=== PATIENT | female | born 1940 | race Caucasian/White ===

== ENCOUNTER 2018-12-21 13:22 | Outpatient (RCR) | payer MEDICARE, OTHER ==
[~2018-12-21 13:22] MED LIST: ACET-2422 PO; ACET-2429 PO; ACET325T38 PO; ACHD5005 PO; AMLO10TA7 PO; AMLO5TAB9 PO; ASPI-983 PO; BETH25TA PO; BYSTOLIC 5MG; CEPH-507 PO; CHOL5000 PO; DICL25CA4 PO; DIPH25CA79 PO; ENAL20TA PO; ENLP10T; FURO-124 PO; HYDR-1231 PO; HYDROCHLOROT 25 MG; LORA1TAB59 PO; NEBI5TAB8 PO; OMEP20CA12 PO; OMEP40CA36 PO; POTA-51 PO; SIMV20TA3 PO; SODIUM BICARB PO; SOLI10TA2 PO; TYLENOL
[2018-12-30] MEDS ORDERED: NITR100C10 PO (12:22)
[2018-12-30] MEDS ORDERED: SIMV20TA3 PO (12:22)
[2018-12-30] MEDS ORDERED: SOLI10TA2 PO (12:22)
[2018-12-30] MEDS ORDERED: SODI650T PO (12:22)
[2018-12-30] MEDS ORDERED: CALC0.253 PO (12:22)
[2018-12-30] MEDS ORDERED: AMLO10TA7 PO (12:22)
[2018-12-30] MEDS ORDERED: NFNEB10T PO (12:22)
[2018-12-30] MEDS ORDERED: OMEP40CA36 PO (12:22)
[2018-12-30] MEDS ORDERED: CEFD300C3 PO (13:32)
[2018-12-30] MEDS ORDERED: NEBI5TAB8 PO (16:58)
[2018-12-30] MEDS ORDERED: CART1TAB4 PO (16:58)
[2018-12-30] MEDS ORDERED: PYRI100T2 PO (16:58)
[2018-12-30] MEDS ORDERED: KRIL1CAP31 PO (16:58)
[2019-01-01] MEDS ORDERED: CEPH-507 PO (07:37)
== END 2019-01-08 | disposition home or self-care (01) ==
LOC: CR3 13:22 → MERGE 13:22
PROVIDERS: ATTEND Family Medicine
DX: Z29.8 Encounter for other specified prophylactic measures (principal)

== ENCOUNTER 2018-12-30 11:18 | Inpatient (IN) | payer MEDICARE, OTHER ==
[~2018-12-30] VITALS: Ht 171.4 cm; Wt 66.7 kg
--- NOTE | 2018-12-30 11:55 | ED General ---
General Chief Complaint: General Problems/Pain Stated Complaint: TREMORS;HX NEW MED Source of Information: Patient Exam Limitations: No Limitations History of Present Illness Date Seen by Provider: Dec 30, 2018 Time Seen by Provider: 11:52 Initial Comments To ER with reports of shaking upon awakening this morning. She was started on nitrofurantoin yesterday for diagnosis of urinary tract infection. She believes nitrofurantoin may be causing her shaking. She did feel cold at the time and has a temperature of 100.7 upon arrival to the emergency room. Timing/Duration: 1-2 Days Severity: Moderate Associated Systoms: Fever/Chills; No Nausea/Vomiting; Weakness Allergies and Home Medications Allergies Coded Allergies: Penicillins (Verified Allergy, Unknown, 12/30/18) Home Medications Cefdinir 300 Mg Capsule, 300 MG PO DAILY Prescribed by: STAN POLLOCK on 12/30/18 0751 Patient Home Medication List Home Medication List Reviewed: Yes Review of Systems Review of Systems Constitutional: see HPI, chills EENTM: see HPI Respiratory: no symptoms reported Cardiovascular: no symptoms reported Genitourinary: no symptoms reported Musculoskeletal: no symptoms reported Skin: no symptoms reported Psychiatric/Neurological: No Symptoms Reported Hematologic/Lymphatic: No Symptoms Reported Physical Exam Vital Signs Vital Signs - First Documented 12/30/18 11:53 Temp 100.7 Pulse 84 Resp 20 B/P (MAP) 152/76 (101) Pulse Ox 98 Capillary Refill : Height, Weight, BMI Height: '" Weight: lbs. oz. kg; BMI Method: General Appearance: No Apparent Distress, WD/WN Eyes: Bilateral Eye Normal Inspection, Bilateral Eye PERRL, Bilateral Eye EOMI Neck: Full Range of Motion, Normal Inspection Respiratory: Normal Breath Sounds, No Accessory Muscle Use, No Respiratory Distress Cardiovascular: Regular Rate, Rhythm, Normal Peripheral Pulses Gastrointestinal: Normal Bowel Sounds, Non Tender, Soft Extremity: Normal Capillary Refill Neurologic/Psychiatric: Alert, Oriented x3, No Motor/Sensory Deficits Skin: Normal Color, Warm/Dry Focused Exam Lactate Level 12/30/18 12:11: Lactic Acid Level 1.80 Lactic Acid Level Laboratory Tests Test 12/30/18 12:11 Lactic Acid Level 1.80 MMOL/L (0.50-2.00) Progress/Results/Core Measures Suspected Sepsis SIRS Temperature: Pulse: Respiratory Rate: Laboratory Tests 12/30/18 12:11: White Blood Count 12.7H Blood Pressure / Mean: 12/30/18 12:11: Lactic Acid Level 1.80 Laboratory Tests 12/30/18 12:11: Creatinine 3.82H, Platelet Count 309, Total Bilirubin 0.4 Results/Orders Lab Results Laboratory Tests Test 12/30/18 12:11 12/30/18 12:39 Range/Units White Blood Count 12.7 H 4.3-11.0 10^3/uL Red Blood Count 3.81 L 4.35-5.85 10^6/uL Hemoglobin 11.5 11.5-16.0 G/DL Hematocrit 35 35-52 % Mean Corpuscular Volume 91 80-99 FL Mean Corpuscular Hemoglobin 30 25-34 PG Mean Corpuscular Hemoglobin Concent 33 32-36 G/DL Red Cell Distribution Width 13.0 10.0-14.5 % Platelet Count 309 130-400 10^3/uL Mean Platelet Volume 10.1 7.4-10.4 FL Neutrophils (%) (Auto) 89 H 42-75 % Lymphocytes (%) (Auto) 5 L 12-44 % Monocytes (%) (Auto) 6 0-12 % Eosinophils (%) (Auto) 1 0-10 % Basophils (%) (Auto) 0 0-10 % Neutrophils # (Auto) 11.3 H 1.8-7.8 X 10^3 Lymphocytes # (Auto) 0.6 L 1.0-4.0 X 10^3 Monocytes # (Auto) 0.7 0.0-1.0 X 10^3 Eosinophils # (Auto) 0.1 0.0-0.3 10^3/uL Basophils # (Auto) 0.0 0.0-0.1 10^3/uL Neutrophils % (Manual) 90 % Lymphocytes % (Manual) 3 % Monocytes % (Manual) 5 % Eosinophils % (Manual) 1 % Basophils % (Manual) 0 % Band Neutrophils 1 % Blood Morphology Comment NORMAL Sodium Level 138 135-145 MMOL/L Potassium Level 5.1 H 3.6-5.0 MMOL/L Chloride Level 106 98-107 MMOL/L Carbon Dioxide Level 18 L 21-32 MMOL/L Anion Gap 14 5-14 MMOL/L Blood Urea Nitrogen 52 H 7-18 MG/DL Creatinine 3.82 H 0.60-1.30 MG/DL Estimat Glomerular Filtration Rate 11 BUN/Creatinine Ratio 14 Glucose Level 128 H 70-105 MG/DL Lactic Acid Level 1.80 0.50-2.00 MMOL/L Calcium Level 9.7 8.5-10.1 MG/DL Corrected Calcium 9.7 8.5-10.1 MG/DL Total Bilirubin 0.4 0.1-1.0 MG/DL Aspartate Amino Transf (AST/SGOT) 20 5-34 U/L Alanine Aminotransferase (ALT/SGPT) 9 0-55 U/L Alkaline Phosphatase 59 40-136 U/L Total Protein 7.5 6.4-8.2 GM/DL Albumin 4.0 3.2-4.5 GM/DL Urine Color YELLOW Urine Clarity CLEAR Urine pH 6.5 5-9 Urine Specific [place] 1.010 L 1.016-1.022 Urine Protein 2+ H NEGATIVE Urine Glucose (UA) NEGATIVE NEGATIVE Urine Ketones NEGATIVE NEGATIVE Urine Nitrite NEGATIVE NEGATIVE Urine Bilirubin NEGATIVE NEGATIVE Urine Urobilinogen NORMAL NORMAL MG/DL Urine Leukocyte Esterase 3+ H NEGATIVE Urine RBC (Auto) 2+ H NEGATIVE Urine RBC 2-5 H /HPF Urine WBC >100 H /HPF Urine Squamous Epithelial Cells 2-5 /HPF Urine Crystals NONE /LPF Urine Bacteria TRACE /HPF Urine Casts NONE /LPF Urine Mucus NEGATIVE /LPF Urine Culture Indicated YES Micro Results Microbiology 12/30/18 Influenza Types A,B Antigen ([facility]KOT[facility]) - Final, Complete My Orders Orders - STAN POLLOCK APRN Cbc With Automated Diff (12/30/18 11:51) Comprehensive Metabolic Panel (12/30/18 11:51) Ua Culture If Indicated (12/30/18 11:51) Iv [place]-Insert (Order) (12/30/18 11:51) Blood Culture (12/30/18 11:51) Lactic Acid Analyzer (12/30/18 11:51) Influenza A And B Antigens (12/30/18 11:56) Manual Differential (12/30/18 12:11) Urine Culture (12/30/18 12:39) Ceftriaxone For Iv Use (Rocephin For I (12/30/18 13:15) Acetaminophen Tablet (Tylenol Tablet) (12/30/18 13:30) Medications Given in ED Current Medications Medications Dose Ordered Sig/Cara Route Start Time Stop Time Status Last Admin Dose Admin Acetaminophen 1,000 mg ONCE ONCE PO 12/30/18 13:30 12/30/18 13:31 DC 12/30/18 13:27 1,000 MG Ceftriaxone Sodium 1000 mg/ Sterile Water 10 ml @ 200 mls/hr ONCE ONCE IV 12/30/18 13:15 12/30/18 13:17 DC 12/30/18 13:27 200 MLS/HR Vital Signs/I&O 12/30/18 11:53 Temp 100.7 Pulse 84 Resp 20 B/P (MAP) 152/76 (101) Pulse Ox 98 Capillary Refill : Departure Communication (Admissions) Time/Spoke to Admitting Phy: 13:[address] Forbes, we'll admit the patient, hydrate and Rocephin antibiotics. Impression Primary Impression: Urinary tract infection Qualified Codes: N30.00 - Acute cystitis without hematuria Additional Impression: CKD (chronic kidney disease) Qualified Codes: N18.9 - Chronic kidney disease, unspecified Disposition: HOME, SELF-CARE Condition: Stable Admissions Decision to Admit Reason: Admit from ER (General) Decision to Admit/Date: Dec 30, 2018 Time/Decision to Admit Time: 13:54 Departure-Patient Inst. Decision time for Depature: 13:29 Patient Instructions: Urinary Tract Infection, Adult (DC) Add. Discharge Instructions: 1. Antibiotics as directed. Stop the nitrofurantoin (antibiotic given yesterday ) and start the new antibiotic prescribed tomorrow. You do not need anymore antibiotics today, start the new antibiotic tomorrow. Return to ER for any concerns. If you develop any worsening symptoms return to ER. All discharge instructions reviewed with patient and/or family. Voiced understanding. Scripts Cefdinir (Cefdinir) 300 Mg Capsule 300 MG PO DAILY, #7 CAP Prov: STAN POLLOCK ANTHROPOLOGY PROFESSOR 12/30/18 STAN POLLOCK ANTHROPOLOGY PROFESSOR Dec 30, 2018 11:55
[2018-12-30] MEDS ORDERED: AMLO10TA7 PO (12:22)
[2018-12-30] MEDS ORDERED: NITR100C10 PO (12:22)
[2018-12-30] MEDS ORDERED: NFNEB10T PO (12:22)
[2018-12-30] MEDS ORDERED: SIMV20TA3 PO (12:22)
[2018-12-30] MEDS ORDERED: CALC0.253 PO (12:22)
[2018-12-30] MEDS ORDERED: SOLI10TA2 PO (12:22)
[2018-12-30] MEDS ORDERED: SODI650T PO (12:22)
[2018-12-30] MEDS ORDERED: OMEP40CA36 PO (12:22)
[2018-12-30 12:24] LABS: BASOPHILS % (AUTO) 0 % (0-10); EOSINOPHILS # (AUTO) 0.1 10^3/uL (0.0-0.3); EOSINOPHILS % (AUTO) 1 % (0-10); HEMATOCRIT 35 % (35-52); HEMOGLOBIN 11.5 G/DL (11.5-16.0); LYMPHOCYTES # (AUTO) 0.6 X 10^3 (1.0-4.0); LYMPHOCYTES % (AUTO) 5 % (12-44); MEAN CORPUSCULAR HEMOGLOBIN 30 PG (25-34); MEAN CORPUSCULAR HGB CONC 33 G/DL (32-36); MEAN CORPUSCULAR VOLUME 91 FL (80-99); MEAN PLATELET VOLUME 10.1 FL (7.4-10.4); MONOCYTES # (AUTO) 0.7 X 10^3 (0.0-1.0); MONOCYTES % (AUTO) 6 % (0-12); NEUTROPHILS # (AUTO) 11.3 X 10^3 (1.8-7.8); NEUTROPHILS % (AUTO) 89 % (42-75); PLATELET COUNT 309 10^3/uL (130-400); WHITE BLOOD COUNT 12.7 10^3/uL (4.3-11.0)
[2018-12-30 12:42] LABS: BILIRUBIN,TOTAL 0.4 MG/DL (0.1-1.0); CALCIUM 9.7 MG/DL (8.5-10.1); CREATININE SERUM 3.82 MG/DL (0.60-1.30); POTASSIUM 5.1 MMOL/L (3.6-5.0); TOTAL PROTEIN 7.5 GM/DL (6.4-8.2)
[2018-12-30 12:43] LABS: BILIRUBIN,URINE NEGATIVE (NEGATIVE); CLARITY,URINE CLEAR; COLOR,URINE YELLOW; GLUCOSE, URINE (UA) NEGATIVE (NEGATIVE); KETONES,URINE NEGATIVE (NEGATIVE); LEUKOCYTE ESTERASE ,URINE 3+ (NEGATIVE); NITRITE,URINE NEGATIVE (NEGATIVE); PH,URINE 6.5 (5-9); PROTEIN,URINE 2+ (NEGATIVE); UROBILINOGEN,URINE NORMAL (NORMAL)
[2018-12-30 12:50] LABS: NEUTROPHILS % (MANUAL) 90 %
[2018-12-30 12:51] LABS: BAND NEUTROPHILS 1 %; BASOPHILS % (MANUAL) 0 %; EOSINOPHILS % (MANUAL) 1 %; LYMPHOCYTES % (MANUAL) 3 %; MONOCYTES % (MANUAL) 5 %; RBC MORPH NORMAL
[2018-12-30 12:53] LABS: BACTERIA,URINE TRACE /HPF; WBC,URINE >100 /HPF
[2018-12-30] MEDS ORDERED: cefTRIAXone FOR IV USE 1,000 MG in WATER (STERILE) FOR INJECTION 10 ML IV ONE (13:15)
[2018-12-30] MEDS ORDERED: ACETAMINOPHEN 500 MG TAB (TYLENOL) PO ONE (13:30)
[2018-12-30] MEDS ORDERED: CEFD300C3 PO (13:32)
--- OUTSIDE RECORDS SUMMARY | 2018-12-30 14:43 | XMS REPORT | Continuity of Care Document ---
Author Author [facility] Organization [facility] Address Unknown Phone Unavailable Care Team Providers Care Belt Builder Name Role Phone NELSON RIZVI MD PCP Insurance Providers Payer Name Policy Number Subscriber Name Relationship [employer] [id number] Adalgisa Mathias 18 Self / Same As Patient Comm Crossover Enter Ins Name [id number] Adalgisa Mathias 18 Self / Same As Patient Advance Directives Directive Response Recorded Date/Time Advance Directives No 10/22/16 11:33am Health Care Power of Web Production Manager No 10/22/16 11:33am Resuscitation Status Full Code 10/22/16 11:33am Problems Active Problems Medical Problem Onset Date Status Contusion Unknown Acute Medications Current Home Medications Medication Dose Units Route Directions Days/Qty Instructions Start Date Simvastatin 20 Mg 20 Mg Oral Daily 11/18/14 Enalapril Maleate 20 Mg 20 Mg Oral Daily 11/18/14 Omeprazole 20 Mg 20 Mg Oral Daily 30 11/18/14 Diclofenac Potassium 25 Mg 25 Mg Oral Twice A Day 10/22/16 Nebivolol Hcl 5 Mg 5 Mg Oral Daily 10/22/16 Acetaminophen 325 Mg 650 Mg Oral Twice A Day 10/22/16 Diphenhydramine Hcl 25 Mg 25 Mg Oral Twice A Day 10/22/16 Past Home Medications Medication Directions Ordered Status Enalapril Maleate 10 Mg Tablet, 06/09/08 Discontinued [Hydrochlorot 25MG] , 06/09/08 Discontinued [Bystolic 5MG] , 06/09/08 Discontinued [Tylenol] , 06/09/08 Discontinued Nebivolol Hcl 5 Mg Tablet, 5 Each Oral Daily 11/18/14 Discontinued Hydrocodone Bit/Acetaminophen 1 Tab Tablet, 1 Tab Oral Every 6 Hours as needed for Pain 11/18/14 Discontinued Social History Social History Problem Response Recorded Date/Time Alcohol Use Denies Use 11/18/2014 1:27pm Recreational Drug Use No 11/18/2014 1:27pm Recent Foreign Travel No 10/22/2016 11:32am Recent Infectious Disease Exposure No 10/22/2016 11:32am Hospitalization with Isolation Denies 10/22/2016 11:35am Sexually Transmitted Disease No 10/22/2016 11:35am HIV/AIDS No 10/22/2016 11:35am Smoking Status Former Smoker 10/22/2016 11:34am Type Used Cigarettes 10/22/2016 11:34am Recent Hopitalizations No 10/22/2016 11:35am Sexually Transmitted Disease No 10/22/2016 11:35am Hospitalization with Isolation Denies 10/22/2016 11:35am Query Response Start Date Stop Date Smoking Status Former Smoker Hospital Discharge Instructions No hospital discharge instructions. Plan of Care Discharge Date 10/22/16 2:02pm Prescriptions See Medication Section Functional Status No functional status results. Allergies, Adverse Reactions, Alerts Allergen Type Severity Reaction Status Last Updated Penicillins ([id number]) Allergy Severe FACE/EYE SWELLING Active 10/22/16 Immunizations No immunization records. Vital Signs Acute Vital Signs Vital Response Date/Time Pulse Rate (adult) 67 bpm (60 - 90) 10/22/2016 11:42am Respiratory Rate 16 bpm (12 - 24) 10/22/2016 11:42am O2 Sat by Pulse Oximetry 98 % (88 - 100) 10/22/2016 11:42am Blood Pressure 173/80 mm Hg 10/22/2016 11:42am Blood Pressure Mean 111 mm Hg 10/22/2016 11:42am Pain Numeric Pain Scale 0-No Pain 10/22/2016 11:42am Height (Feet) 5 feet 10/22/2016 11:29am Height (Inches) 7.00 inches 10/22/2016 11:29am Height (Calculated Centimeters) 170.326618 cm 10/22/2016 11:29am Weight (Pounds) 157 pounds 10/22/2016 11:29am Weight (Ounces) 9.0 oz 10/22/2016 11:29am Weight (Calculated Grams) 57426.15 gm 10/22/2016 11:29am Weight (Calculated Kilograms) 71.516278 kilograms 10/22/2016 11:29am Calculated BMI 24.7 10/22/2016 11:29am Results Laboratory Results Test Name Result Units Flags Reference Collection Date/Time Result Date/ Time Comments White Blood Count 6.4 10^3/uL 4.3-11.0 10/22/2016 11:50am 10/22/2016 12 :17pm Red Blood Count 4.66 10^6/uL 4.35-5.85 10/22/2016 11:50am 10/22/2016 12 :17pm Hemoglobin 14.1 G/DL 11.5-16.0 10/22/2016 11:50am 10/22/2016 12:17pm Hematocrit 43 % 35-52 10/22/2016 11:50am 10/22/2016 12:17pm Mean Corpuscular Volume 92 FL 80-99 10/22/2016 11:50am 10/22/2016 12: 17pm Mean Corpuscular Hemoglobin 30 PG 25-34 10/22/2016 11:50am 10/22/2016 12:17pm Mean Corpuscular Hemoglobin Concent 33 G/DL 32-36 10/22/2016 11:50am 12:17pm Red Cell Distribution Width 13.5 % 10.0-14.5 10/22/2016 11:50am 2015 12:17pm Platelet Count 158 10^3/uL 130-400 10/22/2016 11:50am 10/22/2016 12: 17pm Mean Platelet Volume 9.8 FL 7.4-10.4 10/22/2016 11:50am 10/22/2016 12: 17pm Neutrophils (%) (Auto) 56 % 42-75 10/22/2016 11:50am 10/22/2016 12: 17pm Lymphocytes (%) (Auto) 31 % 12-44 10/22/2016 11:50am 10/22/2016 12: 17pm Monocytes (%) (Auto) 10 % 0-12 10/22/2016 11:50am 10/22/2016 12:17pm Eosinophils (%) (Auto) 3 % 0-10 10/22/2016 11:50am 10/22/2016 12:17pm Basophils (%) (Auto) 0 % 0-10 10/22/2016 11:50am 10/22/2016 12:17pm Neutrophils # (Auto) 3.6 X 10^3 1.8-7.8 10/22/2016 11:50am 10/22/2016 12:17pm Lymphocytes # (Auto) 2.0 X 10^3 1.0-4.0 10/22/2016 11:50am 10/22/2016 12:17pm Monocytes # (Auto) 0.6 X 10^3 0.0-1.0 10/22/2016 11:50am 10/22/2016 12: 17pm Eosinophils # (Auto) 0.2 10^3/uL 0.0-0.3 10/22/2016 11:50am 10/22/2016 12:17pm Basophils # (Auto) 0.0 10^3/uL 0.0-0.1 10/22/2016 11:50am 10/22/2016 12 :17pm Urine Color YELLOW 10/22/2016 12:00pm 10/22/2016 12:26pm Urine Clarity SLIGHTLY CLOUDY 10/22/2016 12:00pm 10/22/2016 12: 26pm Urine pH 6 5-9 10/22/2016 12:00pm 10/22/2016 12:26pm Urine Specific [place] 1.010 * 1.016-1.022 10/22/2016 12:00pm 2015 12:26pm Urine Protein 2+ * NEGATIVE 10/22/2016 12:00pm 10/22/2016 12:26pm Urine Glucose (UA) NEGATIVE NEGATIVE 10/22/2016 12:00pm 10/22/2016 12 :26pm Urine RBC (Auto) 3+ * NEGATIVE 10/22/2016 12:00pm 10/22/2016 12:26pm Urine Ketones NEGATIVE NEGATIVE 10/22/2016 12:00pm 10/22/2016 12: 26pm Urine Nitrite NEGATIVE NEGATIVE 10/22/2016 12:00pm 10/22/2016 12: 26pm Urine Bilirubin NEGATIVE NEGATIVE 10/22/2016 12:00pm 10/22/2016 12: 26pm Urine Urobilinogen NORMAL MG/DL NORMAL 10/22/2016 12:00pm 10/22/2016 12 :26pm Urine Leukocyte Esterase 3+ * NEGATIVE 10/22/2016 12:00pm 10/22/2016 12 :26pm Urine RBC 2-5 /HPF * 10/22/2016 12:00pm 10/22/2016 12:26pm Urine WBC >100 /HPF * 10/22/2016 12:00pm 10/22/2016 12:26pm Urine Bacteria FEW /HPF * 10/22/2016 12:00pm 10/22/2016 12:26pm Urine Squamous Epithelial Cells 5-10 /HPF 10/22/2016 12:00pm 2015 12:26pm Urine Crystals NONE /LPF 10/22/2016 12:00pm 10/22/2016 12:26pm Urine Casts NONE /LPF 10/22/2016 12:00pm 10/22/2016 12:26pm Urine Mucus NEGATIVE /LPF 10/22/2016 12:00pm 10/22/2016 12:26pm Urine Culture Indicated YES 10/22/2016 12:00pm 10/22/2016 12:26pm Sodium Level 140 MMOL/L 135-145 10/22/2016 11:50am 10/22/2016 12:43pm Potassium Level 4.1 MMOL/L 3.6-5.0 10/22/2016 11:50am 10/22/2016 12: 43pm Chloride Level 110 MMOL/L H 98-107 10/22/2016 11:50am 10/22/2016 12:43pm Carbon Dioxide Level 23 MMOL/L 21-32 10/22/2016 11:50am 10/22/2016 12: 43pm Anion Gap 7 MMOL/L 5-14 10/22/2016 11:50am 10/22/2016 12:43pm Blood Urea Nitrogen 24 MG/DL H 7-18 10/22/2016 11:50am 10/22/2016 12: 43pm Creatinine 1.43 MG/DL H 0.60-1.30 10/22/2016 11:50am 10/22/2016 12:43pm BUN/Creatinine Ratio 17 10/22/2016 11:50am 10/22/2016 12:43pm Estimat Glomerular Filtration Rate 36 10/22/2016 11:50am 2015 12:43pm GFR INTERPRETIVE DATA UNITS FOR ESTIMATED GFR (eGFR): mL/min/1.73 M2 REFERENCE RANGE FOR ESTIMATED GFR (eGFR) eGFR NORMAL eGFR >60 MODERATELY DECREASED eGFR 30-59 SEVERLY DECREASED eGFR 15-29 KIDNEY FAILURE <15 (OR DIALYSIS) Glucose Level 89 MG/DL 70-105 10/22/2016 11:50am 10/22/2016 12:43pm Calcium Level 9.0 MG/DL 8.5-10.1 10/22/2016 11:50am 10/22/2016 12:43pm Total Bilirubin 0.4 MG/DL 0.1-1.0 10/22/2016 11:50am 10/22/2016 12: 43pm Alkaline Phosphatase 54 U/L 40-136 10/22/2016 11:50am 10/22/2016 12: 43pm Aspartate Amino Transf (AST/SGOT) 12 U/L 5-34 10/22/2016 11:50am 2015 12:43pm Alanine Aminotransferase (ALT/SGPT) 10 U/L 0-55 10/22/2016 11:50am 04/2016 12:43pm Total Protein 6.7 G/DL 6.4-8.2 10/22/2016 11:50am 10/22/2016 12:43pm Albumin 4.1 G/DL 3.2-4.5 10/22/2016 11:50am 10/22/2016 12:43pm Procedures Procedure Status Date Provider(s) Tracing only of electrocardiogram Active 10/22/16 KORI PRAKASH DO Encounters Encounter Location Arrival/Admit Date Discharge/Depart Date Attending Provider Departed Clinic [facility] 10/22/16 11:19am 10/22/16 2: 02pm KORI PRAKASH DO
--- OUTSIDE RECORDS SUMMARY | 2018-12-30 14:43 | XMS REPORT | Continuity of Care Document ---
Author Author [facility] Organization [facility] Address Unknown Phone Unavailable Care Team Providers Care Singer Back Tender Name Role Phone NELSON RIZVI MD PCP Insurance Providers Payer Name Policy Number Subscriber Name Relationship Wps Medicare [id number] Adalgisa Mathias A 18 Self / Same As Patient Comm Crossover Enter Ins Name [id number] Adalgisa Mathias 18 Self / Same As Patient Advance Directives Directive Response Recorded Date/Time Advance Directives No 11/04/16 1:30pm Health Care Power of Reel System Operator No 11/04/16 1:30pm Organ Donor No 11/04/16 1:30pm Resuscitation Status Full Code 11/04/16 1:30pm Problems Active Problems Medical Problem Onset Date [...] 25 Mg Oral Twice A Day 10/22/16 Hydrocodone/Acetaminophen 1 Each 2 Each Oral Every 6 Hours as needed for Pain 60 10/29/16 Cephalexin 500 Mg 500 Mg Oral Four Times Daily 40 11/04/16 Past Home Medications Medication Directions Ordered Status [...] No 11/18/2014 1:27pm Recent Foreign Travel No 11/04/2016 10:27am Sexually Transmitted Disease No 10/29/2016 7:05am HIV/AIDS No 10/29/2016 7:05am Smoking Status Never a Smoker 11/04/2016 10:33am Type Used Cigarettes 11/05/2016 1:33pm Recent Hopitalizations No 10/29/2016 7:05am Sexually Transmitted Disease No 10/29/2016 7:05am Query Response Start Date Stop Date Smoking Status Never a Smoker Hospital Discharge Instructions Patient Instructions Physician Instructions New, Converted or Re-Newed RX: Other (patient already has her diclofenac and lortab rx at home so no new rx written) Instructions follow up with Juliet in 1 week. Remove ugalde if still in place. Sent with Rx for keflex until her culture returns. Use the estrace and bactroban and mix together and then apply externally bid until gone. Additional Follow Up: Yes (1 week with Juliet to have ugalde removed) Activity: Activity as Tolerated Driving Instructions: No Driving for 1 Week NO SMOKING: NO SMOKING Nothing Inside Vagina: No Douching, No [place], No Tampons Discharge Diet: No Restrictions Symptoms to Report to : Swelling Increased, Bleeding Excessive, Pain Increased, Fever Over 101 Degrees F, Vaginal Bleeding Increase, Vaginal Discharge Foul For Any Problems or Questions: Contact Your Physician Bathing Instructions: Shower Plan of Care Discharge Date 11/05/16 12:40pm Disposition 01 HOME, SELF-CARE Instructions/Education Provided Vaginal Prolapse How to Care for Your Ugalde Catheter, Female Ugalde Catheter, Female Acute Cystitis (DC) Bladder Retraining Forms Provided [facility]/OP Prescriptions See Medication Section Referrals QUICK,JULIET W COMMERCIAL DRONE SOFTWARE DEVELOPER (Unspecified) - Address: [facility] [address] [place] [id number] Reason(s) for Referral: APPOINTMENT SCHEDULED WITH JULIET GERONIMO FOR Friday11-12-2016 AT 4:30 P.M. CALL BEFORE IF HAVING ANY PROBLEMS OR QUESTIONS. Care Plan and Goals See Discharge Instructions Section Functional Status Query Response Date Recorded Patient Orientation Person Place Time Situation Normal For Age November 05, 2016 1:33pm Allergies, Adverse Reactions, Alerts Allergen Type Severity Reaction Status Last Updated Penicillins ([id number]) Allergy Severe FACE/EYE SWELLING Active 10/22/16 Immunizations No immunization records. Vital Signs Acute Vital Signs Vital Response Date/Time Temperature (Fahrenheit) 98.8 degrees F (97.6 - 99.5) 11/05/2016 12:40pm Temperature (Calculated Celsius) 37.45813 degrees C (36.4 - 37.5) 11/05/2016 8:00am Temperature Source Tympanic 11/05/2016 12:40pm Pulse Rate (adult) 69 bpm (60 - 90) 11/05/2016 12:40pm Respiratory Rate 18 bpm (12 - 24) 11/05/2016 12:40pm O2 Sat by Pulse Oximetry 98 % (88 - 100) 11/05/2016 12:40pm Blood Pressure 148/67 mm Hg 11/05/2016 12:40pm Blood Pressure Mean 94 mm Hg 11/05/2016 8:00am Pain Numeric Pain Scale 2 11/05/2016 12:40pm Pain Intensity 0 11/05/2016 5:53am Height (Feet) 5 feet 11/04/2016 10:27am Height (Inches) 7.00 inches 11/04/2016 10:27am Height (Calculated Centimeters) 170.267866 cm 11/04/2016 10:27am Weight (Pounds) 157 pounds 11/04/2016 10:27am Weight (Ounces) 9.0 oz 11/04/2016 10:27am Weight (Calculated Grams) 52730.15 gm 11/04/2016 10:27am Weight (Calculated Kilograms) 71.308437 kilograms 11/04/2016 10:27am Calculated BMI 24.7 11/04/2016 10:27am Results Pending Laboratory Results Test Name Collection Date/Time Pending Microbiology Results Procedure Source Collection Date/Time Procedures Procedure Status Date Provider(s) Repair of cystocele Completed 11/04/16 KORI PRAKASH DO Tracing only of electrocardiogram Completed 10/22/16 KORI PRAKASH DO Encounters Encounter Location Arrival/Admit Date Discharge/Depart Date Attending Provider Discharged Inpatient [facility] 11/04/16 9:58am 12:40pm KORI PRAKASH DO Registered [facility] 10/29/16 6:08am KORI PRAKASH DO Departed Clinic [facility] 10/22/16 11:19am 10/22/16 2: 02pm KORI PRAKASH DO
--- OUTSIDE RECORDS SUMMARY | 2018-12-30 14:44 | XMS REPORT | Continuity of Care Document ---
Author Author [facility] Organization [facility] Address Unknown Phone Unavailable Support Name Relationship Address Phone STAN POLLOCK APRN Caregiver [facility] [address] [place] [address] CALI CALI MD Caregiver [address], [address] [place], [place] [address] NELSON RIZVI MD Caregiver [address], [place] [address] FANI BROWNE Next Of Kin [address] [place] [address] Insurance Providers Payer Name Policy Number Subscriber Name Relationship Wps Medicare [id number] Adalgisa Mathias A 18 Self / Same As Patient Comm Crossover Enter Ins Name [id number] Adalgisa Mathias 18 Self / Same As Patient Advance Directives Directive Response Recorded Date/Time Advance Directives No 11/18/14 1:27pm Resuscitation Status Full Code 11/18/14 1:27pm Problems Medical Problems Problem Onset Date Status Contusion Unknown Active Medications Medication Dose Route Sig Days/Qty Instructions Order Date Discontinued Date Status Enalapril Maleate 06/09/08 11/18/14 Discontinued [hydrochlorot 25mg] 06/09/08 11/18/14 Discontinued [Bystolic 5MG] 06/09/08 11/18/14 Discontinued [Tylenol] 06/09/08 11/18/14 Discontinued Simvastatin 20 Mg PO DAILY 11/18/14 Active Enalapril Maleate 20 Mg PO DAILY 11/18/14 Active Nebivolol Hcl 5 Each PO DAILY 11/18/14 Active Omeprazole 20 Mg PO DAILY 30 Qty 11/18/14 Active Hydrocodone Bit/Acetaminophen 1 Tab PO EVERY 6 HOURS PRN PAIN 20 Qty Active Social History Social History Problem Response Recorded Date/Time Alcohol Use Denies Use 11/18/2014 1:27pm Recreational Drug Use No 11/18/2014 1:27pm Recent Foreign Travel No 11/18/2014 1:23pm Smoking Status Former Smoker 11/18/2014 1:27pm Query Response Start Date Stop Date Smoking Status Former Smoker Hospital Discharge Instructions No hospital discharge instructions. Plan of Care No plan of care. Functional Status No functional status results. Allergies, Adverse Reactions, Alerts Allergen Type Severity Reaction Status Last Updated Penicillins ([id number]) Allergy Unknown Active 06/09/08 Immunizations No immunization records. Vital Signs Acute Vital Signs Vital Response Date/Time Temperature (Fahrenheit) 97.3 degrees F (97.6 - 99.5) Temperature (Calculated Celsius) 36.97219 degrees C (36.4 - 37.5) Temperature Source Temporal Pulse Rate (adult) 78 bpm (60 - 90) Respiratory Rate 16 bpm (12 - 24) O2 Sat by Pulse Oximetry 96 % (88 - 100) Blood Pressure 184/86 mm Hg Pain Pain Intensity 2 Height (Feet) 5 feet Height (Inches) 7 inches Height (Calculated Centimeters) 170.681633 cm Weight (Pounds) 169 pounds Weight (Calculated Kilograms) 76.751947 kilograms Calculated BMI 26.47 Results Laboratory Results Test Name Result Units Flags Reference Collection Date/Time Result Date/ Time Comments White Blood Count 6.9 10^3/uL 4.3-11.0 11/18/2014 1:28pm 11/18/2014 1: 36pm Red Blood Count 4.59 10^6/uL 4.35-5.85 11/18/2014 1:28pm 11/18/2014 1: 36pm Hemoglobin 14.0 G/DL 11.5-16.0 11/18/2014 1:pm 11/18/2014 1:36pm Hematocrit 42 % 35-52 11/18/2014 1:pm 11/18/2014 1:36pm Mean Corpuscular Volume 91 FL 80-99 11/18/2014 1:pm 11/18/2014 1: 36pm Mean Corpuscular Hemoglobin 31 PG 25-34 11/18/2014 1:28pm 11/18/2014 1: 36pm Mean Corpuscular Hemoglobin Concent 34 G/DL 32-36 11/18/2014 1:pm 12/2014 1:36pm Red Cell Distribution Width 13.0 % 10.0-14.5 11/18/2014 1:28pm 2014 1:36pm Platelet Count 148 10^3/uL 130-400 11/18/2014 1:28pm 11/18/2014 1:36pm Mean Platelet Volume 9.4 FL 7.4-10.4 11/18/2014 1:28pm 11/18/2014 1: 36pm Procedures No known history of procedures. Encounters Encounter Location Date/Time Departed Emergency Room [facility] 11/18/14 11:08am Recent Diagnosis
--- OUTSIDE RECORDS SUMMARY | 2018-12-30 14:44 | XMS REPORT | Continuity of Care Document ---
Author Author [facility] Organization [facility] Address Unknown Phone Unavailable Care Team Providers Care Debt And Budget Counselor Name Role Phone NELSON RIZVI MD PCP Insurance Providers Payer Name Policy Number Subscriber Name Relationship [employer] Medicare [id number] Adalgisa Mathias 18 Self / Same As Patient Comm Crossover Enter Ins Name [id number] Adalgisa Mathias 18 Self / Same As Patient Advance Directives Directive Response Recorded Date/Time Advance Directives No 12/16/16 1:22am Health Care Power of Visitor Services Associate No 12/16/16 1:22am Organ Donor No 12/16/16 1:22am Resuscitation Status Full Code 12/16/16 1:22am Chief Complaint and Reason for Visit Chief Complaint SEVERE SEPSIS; UTI; ARF; BLADDER RETENTION Reason for Visit Contusion Severe sepsis Urinary retention Urinary tract infection Problems Active Problems Medical Problem Onset Date Status Acute renal failure Unknown Acute Contusion Unknown Acute Severe sepsis Unknown Acute Urinary retention Unknown Acute Urinary tract infection Unknown Acute Medications Current Home Medications Medication Dose Units Route Directions Days/Qty Instructions Start Date Nebivolol Hcl 5 Mg 5 Mg Oral Daily 10/22/16 Diphenhydramine Hcl 25 Mg 25 Mg Oral Twice A Day 10/22/16 Acetaminophen 650 Mg 1,300 Mg Oral Bedtime TAKES 2 (650MG) TABLETS Omeprazole 40 Mg 40 Mg Oral Daily 12/16/16 Enalapril Maleate 20 Mg 20 Mg Oral Daily 12/16/16 Simvastatin 20 Mg 20 Mg Oral Bedtime 12/16/16 Solifenacin Succinate 10 Mg 10 Mg Oral Daily 12/16/16 Past Home Medications Medication Directions Ordered Status Enalapril Maleate 10 Mg Tablet, 06/09/08 Discontinued [Hydrochlorot 25MG] , 06/09/08 Discontinued [Bystolic 5MG] , 06/09/08 Discontinued [Tylenol] , 06/09/08 Discontinued Simvastatin 20 Mg Tablet, 20 Mg Oral Daily 11/18/14 Discontinued Enalapril Maleate 20 Mg Tablet, 20 Mg Oral Daily 11/18/14 Discontinued Nebivolol Hcl 5 Mg Tablet, 5 Each Oral Daily 11/18/14 Discontinued Omeprazole 20 Mg Capsule.dr, 20 Mg Oral Daily 11/18/14 Discontinued Hydrocodone Bit/Acetaminophen 1 Tab Tablet, 1 Tab Oral Every 6 Hours as needed for Pain 11/18/14 Discontinued Diclofenac Potassium 25 Mg Capsule, 25 Mg Oral Twice A Day 10/22/16 Discontinued Acetaminophen 325 Mg Tablet, 650 Mg Oral Twice A Day 10/22/16 Discontinued Hydrocodone/Acetaminophen 1 Each Tablet, 2 Each Oral Every 6 Hours as needed for Pain 10/29/16 Discontinued Cephalexin 500 Mg Capsule, 500 Mg Oral Four Times Daily 11/04/16 Discontinued Social History Social History Problem Response Recorded Date/Time Alcohol Use Denies Use 11/18/2014 1:27pm Recreational Drug Use No 11/18/2014 1:27pm Recent Foreign Travel No 12/16/2016 1:20am Recent Infectious Disease Exposure No 12/16/2016 1:20am Hospitalization with Isolation Denies 12/19/2016 11:39am Sexually Transmitted Disease No 12/16/2016 1:40am HIV/AIDS No 12/16/2016 1:40am Smoking Status Former Smoker 12/16/2016 1:50am Type Used Cigarettes 12/16/2016 1:50am Recent Hopitalizations No 12/16/2016 1:40am Sexually Transmitted Disease No 12/16/2016 1:40am Hospitalization with Isolation Denies 12/19/2016 11:39am Query Response Start Date Stop Date Smoking Status Former Smoker Hospital Discharge Instructions No hospital discharge instructions. Plan of Care Discharge Date 12/19/16 11:39am Disposition 61 MEDICARE SWING BED Instructions/Education Provided Urinary Tract Infections in Adults Prescriptions See Medication Section Functional Status Query Response Date Recorded Patient Orientation Person Place Situation December 18, 2016 3:40pm Patient Orientation Person Place Time Situation December 19, 2016 11:39am Comprehension Ability Understands Concepts December 18, 2016 8:00pm Allergies, Adverse Reactions, Alerts Allergen Type Severity Reaction Status Last Updated Penicillins ([id number]) Allergy Severe FACE/EYE SWELLING Active 10/22/16 Immunizations No immunization records. Vital Signs Acute Vital Signs Vital Response Date/Time Temperature (Fahrenheit) 100.5 degrees F (97.6 - 99.5) 12/19/2016 8:00am Temperature (Calculated Celsius) 38.17900 degrees C (36.4 - 37.5) 12/19/2016 8:00am Temperature Source Tympanic 12/19/2016 8:00am Pulse Rate (adult) 108 bpm (60 - 90) 12/19/2016 8:00am Respiratory Rate 20 bpm (12 - 24) 12/19/2016 8:00am O2 Sat by Pulse Oximetry 98 % (88 - 100) 12/19/2016 8:00am Blood Pressure 124/69 mm Hg 12/19/2016 8:00am Blood Pressure Mean 87 mm Hg 12/19/2016 8:00am Pain Numeric Pain Scale 0-No Pain 12/19/2016 8:00am Height (Feet) 5 feet 12/16/2016 1:16am Height (Inches) 7.00 inches 12/16/2016 1:16am Height (Calculated Centimeters) 170.337869 cm 12/16/2016 1:16am Weight (Pounds) 158 pounds 12/18/2016 6:00am Weight (Ounces) 6.0 oz 12/18/2016 6:00am Weight (Calculated Grams) 52405.692 gm 12/18/2016 6:00am Weight (Calculated Kilograms) 71.183518 kilograms 12/18/2016 6:00am Calculated BMI 24.7 12/16/2016 1:16am Capillary Refill Capillary Refill Less Than 3 Seconds 12/18/2016 8:00pm Results Pending Laboratory Results Test Name Collection Date/Time Pending Microbiology Results Procedure Source Collection Date/Time Procedures No known history of procedures. Encounters Encounter Location Arrival/Admit Date Discharge/Depart Date Attending Provider Discharged Inpatient [facility] 12/16/16 12:27am 11:39am SCOTT HUBBARD DO Registered Clinic [facility] 12/11/16 10:16am NELSON RIZVI MD Recent Diagnosis Contusion Severe sepsis Urinary retention Urinary tract infection
--- OUTSIDE RECORDS SUMMARY | 2018-12-30 14:44 | XMS REPORT | Continuity of Care Document ---
Author Author [facility] Organization [facility] Address Unknown Phone Unavailable Care Team Providers Care Laborer Heading Name Role Phone NELSON RIZVI MD PCP Insurance Providers Payer Name Policy Number Subscriber Name Relationship Wps Medicare [id number] Adalgisa Mathias A 18 Self / Same As Patient Comm Crossover Enter Ins Name [id number] Adalgisa Mathias 18 Self / Same As Patient Advance Directives Directive Response Recorded Date/Time Advance Directives No 01/15/17 3:37pm Health Care Power of Regional Geodetic Advisor No 01/15/17 3:37pm Organ Donor No 01/15/17 3:37pm Resuscitation Status Full Code 01/15/17 3:37pm Chief Complaint and Reason for Visit Chief Complaint General Problems/Pain Reason for Visit Urinary tract infection [id number] Hyperkalemia Problems Active Problems Medical Problem Onset Date Status Acute on chronic renal failure Unknown Acute Acute renal failure Unknown Acute Contusion Unknown Acute Elevated brain natriuretic peptide (BNP) level Unknown Acute Hyperkalemia Unknown Acute Severe sepsis Unknown Acute Urinary [...] 10 Mg 10 Mg Oral Daily 12/16/16 Bethanechol Chloride 25 Mg 25 Mg Oral Before Meals And At Bedtime 120 12/23/16 Furosemide 40 Mg 40 Mg Oral Daily 30 12/23/16 Potassium Chloride 20 Meq 20 Meq Oral Daily 30 12/23/16 Past Home Medications Medication Directions Ordered Status [...] No 11/18/2014 1:27pm Recent Foreign Travel No 01/15/2017 3:30pm Recent Infectious Disease Exposure No 01/15/2017 3:30pm Hospitalization with Isolation Denies 01/15/2017 3:30pm Sexually Transmitted Disease No 01/15/2017 3:37pm HIV/AIDS No 01/15/2017 3:37pm Smoking Status Former Smoker 01/15/2017 3:37pm Type Used Cigarettes 01/15/2017 3:37pm Recent Hopitalizations No 01/15/2017 3:37pm Sexually Transmitted Disease No 01/15/2017 3:37pm Hospitalization with Isolation Denies 01/15/2017 3:30pm Query Response Start Date Stop Date Smoking Status Former Smoker Hospital Discharge Instructions No hospital discharge instructions. Plan of Care Discharge Date 01/15/17 7:19pm Disposition 02 XFER S[facility]M HOSP Condition at Discharge Improved Prescriptions See Medication Section Referrals NELSON RIZVI MD - Primary Care Physician Functional Status No functional status results. Allergies, Adverse Reactions, Alerts Allergen Type Severity Reaction Status Last Updated Penicillins ([id number]) Allergy Severe FACE/EYE SWELLING Active 10/22/16 Immunizations No immunization records. Vital Signs Acute Vital Signs Vital Response Date/Time Temperature (Fahrenheit) 96.6 degrees F (97.6 - 99.5) 01/15/2017 3:30pm Temperature (Calculated Celsius) 35.23513 degrees C (36.4 - 37.5) 01/15/2017 3:30pm Temperature Source Temporal 01/15/2017 3:30pm Pulse Rate (adult) 92 bpm (60 - 90) 01/15/2017 7:19pm Respiratory Rate 18 bpm (12 - 24) 01/15/2017 7:19pm O2 Sat by Pulse Oximetry 98 % (88 - 100) 01/15/2017 7:19pm Blood Pressure 121/63 mm Hg 01/15/2017 7:19pm Blood Pressure Mean 100 mm Hg 01/15/2017 3:30pm Pain Numeric Pain Scale 0-No Pain 01/15/2017 3:30pm Height (Feet) 5 feet 01/15/2017 3:30pm Height (Inches) 7 inches 01/15/2017 3:30pm Height (Calculated Centimeters) 170.232689 cm 01/15/2017 3:30pm Weight (Pounds) 146 pounds 01/15/2017 3:30pm Weight (Ounces) 6.0 oz 12/18/2016 6:00am Weight (Calculated Grams) 58758.692 gm 12/18/2016 6:00am Weight (Calculated Kilograms) 66.281622 kilograms 01/15/2017 3:30pm Capillary Refill Capillary Refill Less Than 3 Seconds 01/15/2017 3:30pm Height 5 ft 7 in Weight 146 lb Body Mass Index 22.9 kg/m^2 Results Pending Laboratory Results Test Name Collection Date/Time Pending Microbiology Results Procedure Source Collection Date/Time Procedures Procedure Status Date Provider(s) Color Doppler echocardiography Active 12/20/16 SCOTT HUBBARD DO Tracing only of electrocardiogram Completed 12/20/16 WILMER MILNER MD FACP FACC [facility] Tracing only of electrocardiogram Active 01/15/17 MAEVE MITCHELL MD Encounters Encounter Location Arrival/Admit Date Discharge/Depart Date Attending Provider Departed Emergency Room [facility] 01/15/17 3:12pm 01/15 7:19pm MAEVE MITCHELL MD Registered Clinic [facility] 01/06/17 11:27am NELSON RIZVI MD Registered Clinic [facility] 12/31/16 2:57pm WILMER MILNER FACP [facility]S [facility] Discharged Inpatient [facility] 12/19/16 11:49am 12:10pm SCOTT HUBBARD DO Discharged Inpatient [facility] 12/16/16 12:27am 11:39am SCOTT HUBBARD DO Recent Diagnosis
--- NOTE | 2018-12-30 14:59 | History & Physical-Hospitalist ---
History of Present Illness HPI/Chief Complaint Pt is a 78yoCF with a PMH CKD and HTN who presented to the ER due to shakiness. She is a poor historian so history is somewhat limited and required significant prompting. She states she was seen by her PCP yesterday for what she thought was a check up but was treated for a UTI. She doesn't believe that she had any urinary symptoms yesterday though. She was started on Macrobid and took 2 doses but then woke up this morning with a fever of 100.7 and feeling shakey prompting her to seek evaluation in the ER. She was found to have a leukocytosis and remained febrile. She also had an mild elevation in the creatinine and is being admitted for severe sepsis after failing outpatient management. Source: patient Date Seen 12/30/18 Time Seen by a Provider: 14:51 Attending Physician Lelia Forbes MD PCP Lebron Spears MD Referring Physician Date of Admission Dec 30, 2018 at 14:38 Home Medications & Allergies Home Medications Reviewed patient Home Medication Reconciliation performed by pharmacy medication reconciliations land mobile radio technician and/or nursing. Patients Allergies have been reviewed. Allergies Allergies Coded Allergies Penicillins (Verified Allergy, Unknown, 12/30/18) verapamil (Verified Allergy, Unknown, 12/31/18) Past Ptbytkl-[id number]-[id number] Hx Past Med/Social Hx: Reviewed Nursing Past Med/Soc Hx Patient Social History Alcohol Use: Denies Use Recreational Drug Use: No Smoking Status: Former Smoker Former Smoker, Quit: Jan 04, 1998 Type Used: Cigarettes Recent Foreign Travel: No Contact w/other who traveled: No Recent Infectious Disease Expo: No Past Medical History Surgeries: Hysterectomy, Tonsillectomy Cardiac: Hypertension Family History Reviewed Nursing Family Hx No Pertinent Family Hx Review of Systems Constitutional: chills, fever Gastrointestinal: abdominal pain Physical Exam Physical Exam Vital Signs Vital Signs - First Documented 12/30/18 12/30/18 11:53 15:45 Temp 100.7 Pulse 84 Resp 20 B/P (MAP) 152/76 (101) Pulse Ox 98 O2 Delivery Room Air Capillary Refill : Less Than 3 Seconds Height, Weight, BMI Height: 5'1.00" Weight: 146lbs. oz. 66.964572lh; BMI Method:Stated General Appearance: No Apparent Distress, Chronically ill, Other (appears older than stated age) HEENT: PERRL/EOMI, Moist Mucous Membranes; No Scleral Icterus (L), No Scleral Icterus (R); Other (poor dentition) Neck: Normal Inspection Respiratory: Lungs Clear, No Accessory Muscle Use, No Respiratory Distress Cardiovascular: Regular Rate, Rhythm, No JVD, No Murmur Gastrointestinal: Normal Bowel Sounds, Non Tender, Soft Genital/Rectal: Other (suprapubic tenderness) Extremity: No Calf Tenderness, No Pedal Edema Neurologic/Psychiatric: Alert, Normal Mood/Affect, Other (appears oriented when directly asked but slowed mentation) Skin: Warm/Dry; No Mottled; Pallor Results Results/Procedures Labs Laboratory Tests 12/30/18 12:11 12/31/18 03:25 Patient resulted labs reviewed. Assessment/Plan Admission Diagnosis Severe Sepsis Admission Status: Inpatient Order (span 2 midnights) Reason for Inpatient Admission: failed outpatient management, sepsis with LIBRADO Diagnosis/Problems Diagnosis/Problems (1) Severe sepsis Assessment & Plan: Febrile with leukocytosis UTI as source Cultures done in ER lactic acid normal but LIBRADO meets severe criteria Continue on Rocephin No hypotension, no need for 30cc/kg bolus (2) Urinary tract infection Status: Acute Assessment & Plan: Rocephin as above Await cultures Qualifiers: Urinary tract infection type: acute cystitis Hematuria presence: without hematuria Qualified Codes: N30.00 - Acute cystitis without hematuria (3) LIBRADO (acute kidney injury) Assessment & Plan: Acute on CKD Creatinine 3.82 up from baseline ~2 Continue IVF (4) Essential (primary) hypertension Assessment & Plan: Elevated on arrival Trend LELIA FORBES MD Dec 30, 2018 14:59
[2018-12-30 15:45] VITALS: BP 126/63
[2018-12-30 16:00] VITALS: BP 111/60
[2018-12-30] MEDS ORDERED: ONDANSETRON 4 MG/2 ML (SDV) Z0FRAN IV PRN (16:00)
[2018-12-30] MEDS ORDERED: cefTRIAXone 1,000 MG/SWFI 10 ML IV PUSH IV SCH ×2 (16:00)
[2018-12-30] MEDS ORDERED: ACETAMINOPHEN 325 MG TABLET PO PRN (16:00)
[2018-12-30] MEDS ORDERED: CATHETER FLUSH 10 ML SYR IV PRN (16:00)
[2018-12-30] MEDS ORDERED: PYRI100T2 PO (16:58)
[2018-12-30] MEDS ORDERED: CART1TAB4 PO (16:58)
[2018-12-30] MEDS ORDERED: NEBI5TAB8 PO (16:58)
[2018-12-30] MEDS ORDERED: KRIL1CAP31 PO (16:58)
[2018-12-30 17:00] VITALS: BP 133/66
--- NOTE | 2018-12-30 17:00 | NUR ---
SPOKE WITH THE PATIENT ABOUT HER MEDICATIONS. SHE HAD HER BOTTLES WITH HER AND I COMPARED WITH THE EXT MED HX. SHE WAS ABLE TO VERIFY EXACTLY HOW SHE TAKES EACH MEDICATION. IN ADDITION TO WHAT IS SHOWN ON THE EXT MED HX SHE HAS THE FOLLOWING BOTTLES: 12-03-18 SODIUM BICARB 10GR BID #60 10-05-18 OMEPRAZOLE 40MG DAILY #90 SHE ALSO FILLED VESICARE 10MG DAILY #30 12-03-18 - SHE STATES SHE HAS STOPPED THIS FOR NOW DUE TO SHE THINKS IT MAY HAVE BEEN CAUSING HER DRY MOUTH. SHE TAKES THE FOLLOWING OTC: MOVE FREE DAILY REESE RED DAILY B6 100 DAILY
[2018-12-30] MEDS: LACTATED RINGERS 1,000 ML IV SCH (17:02)
[2018-12-30 18:00] VITALS: BP 118/85
[2018-12-30 20:00] VITALS: BP 147/61
[2018-12-30] MEDS ORDERED: IBUPROFEN 600 MG (MOTRIN) TAB PO PRN (21:30)
[2018-12-31] VITALS (7 sets, daily range): BP systolic 111–157; BP diastolic 50–89
[2018-12-31 03:53] LABS: BASOPHILS % (AUTO) 0 % (0-10); EOSINOPHILS % (AUTO) 0 % (0-10); HEMATOCRIT 32 % (35-52); HEMOGLOBIN 10.4 G/DL (11.5-16.0); LYMPHOCYTES # (AUTO) 0.4 X 10^3 (1.0-4.0); LYMPHOCYTES % (AUTO) 4 % (12-44); MEAN CORPUSCULAR HEMOGLOBIN 30 PG (25-34); MEAN CORPUSCULAR HGB CONC 32 G/DL (32-36); MEAN CORPUSCULAR VOLUME 92 FL (80-99); MEAN PLATELET VOLUME 9.8 FL (7.4-10.4); MONOCYTES # (AUTO) 0.8 X 10^3 (0.0-1.0); MONOCYTES % (AUTO) 8 % (0-12); NEUTROPHILS # (AUTO) 9.3 X 10^3 (1.8-7.8); NEUTROPHILS % (AUTO) 88 % (42-75); PLATELET COUNT 208 10^3/uL (130-400); RED CELL DISTRIBUTION WIDTH 12.9 % (10.0-14.5); WHITE BLOOD COUNT 10.6 10^3/uL (4.3-11.0)
[2018-12-31 04:11] LABS: ALBUMIN 3.2 GM/DL (3.2-4.5); BILIRUBIN,TOTAL 0.3 MG/DL (0.1-1.0); CALCIUM 9.2 MG/DL (8.5-10.1); CREATININE SERUM 3.9 MG/DL (0.60-1.30); POTASSIUM 4.2 MMOL/L (3.6-5.0); TOTAL PROTEIN 6.1 GM/DL (6.4-8.2)
[2018-12-31] MEDS: LACTATED RINGERS 1,000 ML IV SCH ×3 (04:15→22:50)
--- NOTE | 2018-12-31 08:14 | Progress Note-Hospitalist ---
Subjective HPI/CC On Admission Date Seen by Provider: Dec 31, 2018 Time Seen by Provider: 08:12 Pt is a 78yoCF with a PMH CKD and HTN who presented to the ER due to shakiness. She is a poor historian so history is somewhat limited and required significant prompting. She states she was seen by her PCP yesterday for what she thought was a check up but was treated for a UTI. She doesn't believe that she had any urinary symptoms yesterday though. She was started on Macrobid and took 2 doses but then woke up this morning with a fever of 100.7 and feeling shakey prompting her to seek evaluation in the ER. She was found to have a leukocytosis and remained febrile. She also had an mild elevation in the creatinine and is being admitted for severe sepsis after failing outpatient management. Subjective/Events-last exam Pt reports feeling well. No complaints. No more shakiness. Focused Exam Lactate Level 12/30/18 12:11: Lactic Acid Level 1.80 Objective Exam Vital Signs Vital Signs Date Time Temp Pulse Resp B/P (MAP) Pulse Ox O2 Delivery O2 Flow Rate FiO2 12/31/18 16:00 80 15 148/71 (96) 95 Nasal Cannula 2.00 12/31/18 07:59 98.8 Capillary Refill : Less Than 3 Seconds General Appearance: No Apparent Distress, Chronically ill Respiratory: Lungs Clear, No Accessory Muscle Use, No Respiratory Distress Cardiovascular: Regular Rate, Rhythm, No JVD, No Murmur Gastrointestinal: Normal Bowel Sounds, Non Tender, Soft Neurologic/Psychiatric: Alert, Normal Mood/Affect Results/Procedures Lab Laboratory Tests 12/31/18 03:25 Patient resulted labs reviewed. Assessment/Plan Assessment and Plan Assess & Plan/Chief Complaint Severe Sepsis Diagnosis/Problems Diagnosis/Problems (1) Severe sepsis Assessment & Plan: Improving UTI as source, await cultures Continue on Rocephin (2) Urinary tract infection Status: Acute Assessment & Plan: Rocephin as above Await cultures Qualifiers: Urinary tract infection type: acute cystitis Hematuria presence: without hematuria Qualified Codes: N30.00 - Acute cystitis without hematuria (3) LIBRADO (acute kidney injury) Assessment & Plan: Acute on CKD Creatinine 3.9 today Continue IVF (4) Essential (primary) hypertension Assessment & Plan: Well controlled, trend Clinical Quality Measures DVT/VTE Risk/Contraindication: Risk Factor Score Per Nursin RFS Level Per Nursing on Admit: 2=Moderate LELIA MARSHALL MD Dec 31, 2018 08:14
[2018-12-31] MEDS ORDERED: cefTRIAXone 1,000 MG/SWFI 10 ML IV PUSH IV SCH ×2 (13:00)
--- NOTE | 2018-12-31 15:40 | NUR ---
CM/SS, initial visit with patient. She resides with her aunt, Loreto Avery, and they have lived together for an extended period. Patient has a FWW at home but she has not needed to use it, available if needed. She drives and is independent for ADL's when well. Patient was watching a fishing show on [employer], we discussed pets. She has history of adopting both cats and dogs, they do not have any pets at this time. Will review intermittently for developing care plan, as of now patient identifies no needs as long as she returns to her baseline prior to illness.
[2018-12-31] MEDS ORDERED: SIMvastatin 20 MG (ZOCOR) TAB PO SCH (21:00)
[2018-12-31] MEDS ORDERED: SODIUM BICARBONATE 650 MG TABLET (NON-FORMULARY) PO SCH (21:00)
[2019-01-01 03:48] LABS: BASOPHILS % (AUTO) 1 % (0-10); EOSINOPHILS # (AUTO) 0.5 10^3/uL (0.0-0.3); EOSINOPHILS % (AUTO) 7 % (0-10); HEMATOCRIT 33 % (35-52); HEMOGLOBIN 10.4 G/DL (11.5-16.0); LYMPHOCYTES % (AUTO) 15 % (12-44); MEAN CORPUSCULAR HEMOGLOBIN 29 PG (25-34); MEAN CORPUSCULAR HGB CONC 32 G/DL (32-36); MEAN CORPUSCULAR VOLUME 91 FL (80-99); MEAN PLATELET VOLUME 9.9 FL (7.4-10.4); MONOCYTES # (AUTO) 0.9 X 10^3 (0.0-1.0); MONOCYTES % (AUTO) 13 % (0-12); NEUTROPHILS # (AUTO) 4.3 X 10^3 (1.8-7.8); NEUTROPHILS % (AUTO) 65 % (42-75); PLATELET COUNT 192 10^3/uL (130-400); WHITE BLOOD COUNT 6.6 10^3/uL (4.3-11.0)
[2019-01-01 04:07] LABS: CALCIUM 9.1 MG/DL (8.5-10.1); CREATININE SERUM 3.6 MG/DL (0.60-1.30); POTASSIUM 3.7 MMOL/L (3.6-5.0)
[2019-01-01] MEDS ORDERED: CALCITRIOL 0.25 MCG (ROCALTROL) CAPSULE PO SCH (07:00)
--- NOTE | 2019-01-01 07:34 | Discharge Inst-Simple/Standard ---
Discharge Inst-Standard Discharge Medications New, Converted or Re-Newed RX: Transmitted to Pharmacy Patient Instructions/Follow Up Plan of Care/Instructions/FU: Please continue to take your medications as written. Please follow up with Dr Spears next week to follow up this hospital stay. Activity as Tolerated: Yes Discharge Diet: No Restrictions Return to The Hospital For: Confusion, fever, pain, if you feel you are getting worse. Planned Outpatient Orders/Ref. Pneu Vac Indicated: Yes LELIA MARSHALL MD Jan 01, 2019 07:34
[2019-01-01] MEDS ORDERED: CEPH-507 PO (07:37)
--- NOTE | 2019-01-01 07:44 | Discharge Summary-Hospitalist ---
Diagnosis/Chief Complaint Date of Admission Dec 30, 2018 at 14:38 Date of Discharge Discharge Date: Jan 01, 2019 Admission Diagnosis Severe Sepsis Discharge Diagnosis (1) Severe sepsis Assessment & Plan: Febrile with leukocytosis UTI as source Cultures done in ER lactic acid normal but LIBRADO meets severe criteria Continue on Rocephin No hypotension, no need for 30cc/kg bolus (2) Urinary tract infection Status: Acute Assessment & Plan: Rocephin as above Await cultures (3) LIBRADO (acute kidney injury) Assessment & Plan: Acute on CKD Creatinine 3.82 up from baseline ~2 Continue IVF (4) Essential (primary) hypertension Assessment & Plan: Elevated on arrival Trend Discharge Summary Discharge Physical Exam Allergies: Coded Allergies: Penicillins (Verified Allergy, Unknown, 12/30/18) verapamil (Verified Allergy, Unknown, 12/31/18) Vitals & I&Os Vital Signs Date Time Temp Pulse Resp B/P (MAP) Pulse Ox O2 Delivery O2 Flow Rate FiO2 01/01/19 09:00 Room Air 01/01/19 08:00 75 11 154/75 (101) 97 01/01/19 04:00 99.3 12/31/18 20:00 2.00 General Appearance: No Apparent Distress, Chronically ill, Other (appears older than stated age) HEENT: No Scleral Icterus (L), No Scleral Icterus (R) Respiratory: Lungs Clear, No Accessory Muscle Use, No Respiratory Distress Cardiovascular: Regular Rate, Rhythm, No JVD, No Murmur Gastrointestinal: Normal Bowel Sounds, Non Tender, Soft Extremity: No Calf Tenderness, No Pedal Edema Skin: Warm/Dry; No Mottled; Pallor Neurologic/Psychiatric: Alert, Normal Mood/Affect, Other (appears oriented when directly asked but slowed mentation) Hospital Course Pt was admitted to the hospital for severe sepsis due to UTI. She was started on treatment for UTI with Macrobid by her PCP as an outpatient but continued to have fevers and began to feel tremulous so presented to the ER where she was found to have an LIBRADO met sepsis criteria from her UTI. She was admitted for failing outpatient treatment. She was started on Rocephin and had an uneventful hospital stay. Her creatinine improved though did not normalize as she has chronic kidney disease. On day of discharge she was requesting discharge home. She was discharged home to complete oral antibiotics and follow up with her PCP next week. Labs (last 24 hrs) Laboratory Tests 01/01/19 03:30: White Blood Count 6.6, Red Blood Count 3.57L, Hemoglobin 10.4L, Hematocrit 33L, Mean Corpuscular Volume 91, Mean Corpuscular Hemoglobin 29, Mean Corpuscular Hemoglobin Concent 32, Red Cell Distribution Width 13.0, Platelet Count 192, Mean Platelet Volume 9.9, Neutrophils (%) (Auto) 65, Lymphocytes (%) (Auto) 15, Monocytes (%) (Auto) 13H, Eosinophils (%) (Auto) 7, Basophils (%) (Auto) 1, Neutrophils # (Auto) 4.3, Lymphocytes # (Auto) 1.0, Monocytes # (Auto) 0.9, Eosinophils # (Auto) 0.5H, Basophils # (Auto) 0.0, Sodium Level 139, Potassium Level 3.7, Chloride Level 108H, Carbon Dioxide Level 20L, Anion Gap 11, Blood Urea Nitrogen 41H, Creatinine 3.60H, Estimat Glomerular Filtration Rate 12, BUN/ Creatinine Ratio 11, Glucose Level 94, Calcium Level 9.1 Microbiology 12/30/18 Blood Culture - Preliminary, Resulted No growth 12/30/18 Influenza Types A,B Antigen (DAKOTAH) - Final, Complete 12/30/18 Urine Culture - Final, Complete NO GROWTH Patient resulted labs reviewed. Pending Labs Discussion & Recommendations Discharge Planning: >30 minutes discharge planning Discharge Home Medications: Active Scripts Active Keflex (Cephalexin) 500 Mg Capsule 500 Mg PO BID Reported Krill Oil 500 mg Softgel (Krill/Om-3/Dha/Epa/Phospho/Ast) 1 Each Capsule 1 Cap PO DAILY Vitamin B-6 (Pyridoxine HCl) 100 Mg Tablet 100 Mg PO DAILY Move Free Ultra Tablet (Cartilage/Collagen/Bor/Hyalur) 1 Each Tablet 1 Tab PO DAILY Bystolic (Nebivolol HCl) 5 Mg Tablet 10 Mg PO DAILY TAKES 2 (5MG) TABLETS Omeprazole 40 Mg Capsule.dr 40 Mg PO DAILY Calcitriol 0.25 Mcg Capsule 0.25 Mg PO MOWEFR Amlodipine Besylate 10 Mg Tablet 10 Mg PO DAILY Sodium Bicarbonate 650 Mg Tablet 2 Tab PO DAILY Simvastatin 20 Mg Tablet 20 Mg PO HS [Sodium Bicarb] 10 Gr PO DAILY TAKE TWO TABLETS DAILY Claritin-D 12 Hour Tablet (Loratadine/Pseudoephedrine) 1 Each Tab.er.12h 1 Each PO BID PRN Aspirin EC (Aspirin) 81 Mg Tablet.dr 81 Mg PO HS Vitamin D3 (Cholecalciferol (Vitamin D3)) 5,000 Unit Capsule 5,000 Units PO DAILY Acetaminophen 8 Hour (Acetaminophen) 650 Mg Tablet.er 1,300 Mg PO Q8H PRN TAKES 2 (650MG) TABLETS Instructions to patient/family Please see electronic discharge instructions given to patient. Clinical Quality Measures DVT/VTE Risk/Contraindication: Risk Factor Score Per Nursin RFS Level Per Nursing on Admit: 2=Moderate Problem Qualifiers (1) Urinary tract infection: Urinary tract infection type: acute cystitis Hematuria presence: without hematuria Qualified Codes: N30.00 - Acute cystitis without hematuria LELIA MARSHALL MD Jan 01, 2019 07:44
[2019-01-01 08:00] VITALS: BP 154/75
[2019-01-01] MEDS ORDERED: NON-FORMULARY MEDICATION 1 EA EA (Amlodipine Besylate 10 MG) PO SCH (09:00)
[2019-01-01] MEDS ORDERED: amLODIPine 10 MG (NORVASC) TAB PO SCH (09:00)
[2019-01-01] MEDS ORDERED: NEBIVOLOL 5 MG TAB (BYSTOLIC) PO SCH (09:00)
== END 2019-01-01 09:12 | disposition home or self-care (01) | DRG 872 ==
LOC: ER 11:22 → ICU 14:38
PROVIDERS: ADMIT Family Medicine; ATTEND Family Medicine
DX: A41.9 Sepsis, unspecified organism (principal); R65.20 Severe sepsis without septic shock; N30.00 Acute cystitis without hematuria; N17.9 Acute kidney failure, unspecified; I12.9 Hypertensive chronic kidney disease with stage 1 through stage 4 chronic kidney disease, or unspecified chronic kidney disease; N18.9 Chronic kidney disease, unspecified; Z88.0 Allergy status to penicillin; Z87.891 Personal history of nicotine dependence
CPT/HCPCS: 36415; 80048; 80053; 81000; 83605; 85007; 85025; 85027; 87040; 87088; 87804

== ENCOUNTER → 2019-02-15 | Outpatient (CLI) | payer MEDICARE, OTHER ==
[~2019-02-15] MED LIST changes: +CALC0.253 PO; +CART1TAB4 PO; +CEFD300C3 PO; +KRIL1CAP31 PO; +NFNEB10T PO; +NITR100C10 PO; +PYRI100T2 PO; +SODI650T PO
[2019-02-15 15:00] LABS: HEMOGLOBIN 11.5 G/DL (11.5-16.0); MEAN PLATELET VOLUME 8.8 FL (7.4-10.4); RED CELL DISTRIBUTION WIDTH 14.8 % (10.0-14.5); WHITE BLOOD COUNT 8.6 10^3/uL (4.3-11.0)
[2019-02-15 15:15] LABS: BILIRUBIN,URINE NEGATIVE (NEGATIVE); CLARITY,URINE CLEAR; COLOR,URINE YELLOW; GLUCOSE, URINE (UA) NEGATIVE (NEGATIVE); KETONES,URINE NEGATIVE (NEGATIVE); LEUKOCYTE ESTERASE ,URINE 3+ (NEGATIVE); NITRITE,URINE NEGATIVE (NEGATIVE); PH,URINE 6.5 (5-9); PROTEIN,URINE 3+ (NEGATIVE); UROBILINOGEN,URINE NORMAL (NORMAL)
[2019-02-15 15:18] LABS: CALCIUM 9.7 MG/DL (8.5-10.1); CREATININE SERUM 2.76 MG/DL (0.60-1.30); PHOSPHORUS 4.1 MG/DL (2.3-4.7); POTASSIUM 4.6 MMOL/L (3.6-5.0)
[2019-02-15 15:23] LABS: BACTERIA,URINE TRACE /HPF; RBC,URINE RARE /HPF; WBC,URINE TNTC /HPF
[2019-02-15 15:24] LABS: SQUAMOUS EPITHELIAL CELL,UR RARE /HPF
== END ==
LOC: LAB 14:33
PROVIDERS: ATTEND Internal Medicine Nephrology
DX: I13.0 Hypertensive heart and chronic kidney disease with heart failure and stage 1 through stage 4 chronic kidney disease, or unspecified chronic kidney disease (principal); I50.9 Heart failure, unspecified; N18.4 Chronic kidney disease, stage 4 (severe); E78.5 Hyperlipidemia, unspecified; N17.9 Acute kidney failure, unspecified; K21.9 Gastro-esophageal reflux disease without esophagitis; N39.0 Urinary tract infection, site not specified; N13.9 Obstructive and reflux uropathy, unspecified; R60.9 Edema, unspecified; E55.9 Vitamin D deficiency, unspecified; R31.9 Hematuria, unspecified; R80.9 Proteinuria, unspecified; E87.2 Acidosis; D64.9 Anemia, unspecified; E79.0 Hyperuricemia without signs of inflammatory arthritis and tophaceous disease; N25.81 Secondary hyperparathyroidism of renal origin; E04.9 Nontoxic goiter, unspecified; R32 Unspecified urinary incontinence
CPT/HCPCS: 36415; 80069; 81000; 82570; 83970; 84156; 84550; 85027; 87077; 87088

== ENCOUNTER 2019-08-03 10:00 | Outpatient (CLI) | payer MEDICARE, OTHER ==
[~2019-08-03] VITALS: Ht 167.7 cm; Wt 60.4 kg
[2019-08-03] MEDS ORDERED: NFNEB10T PO (10:10)
[2019-08-03] MEDS ORDERED: CLOP75TA28 PO (10:10)
[2019-08-04] MEDS ORDERED: METR500T PO (11:23)
[2019-08-04] MEDS ORDERED: CLOT15CR4 TP (11:23)
[2019-08-04] MEDS ORDERED: CIPR-225 PO (11:23)
== END 2019-08-03 11:28 | disposition home or self-care (01) ==
LOC: PREOP 10:00
PROVIDERS: ATTEND Surgery
DX: Z01.818 Encounter for other preprocedural examination (principal)

== ENCOUNTER 2019-08-04 08:38 | Day surgery (SDC) | payer MEDICARE, OTHER ==
[~2019-08-04] VITALS: Ht 167.7 cm; Wt 60.4 kg
[2019-08-04] VITALS (13 sets, daily range): BP systolic 98–159; BP diastolic 51–72
[~2019-08-04 08:38] MED LIST changes: +CLOP75TA28 PO; +NS IV 500 ML 500 ML ONE
[2019-08-04] MEDS ORDERED: NS IV 500 ML 500 ML IV PRN (08:49)
[2019-08-04] MEDS ORDERED: MIDAZOLAM 2 MG/2 ML (VERSED) VIAL IVP ONE (09:00)
[2019-08-04] MEDS ORDERED: fentaNYL INJECTION 100 MCG/2 ML AMP IVP ONE (09:00)
[2019-08-04] MEDS ORDERED: LIDOCAINE JELLY 2% 6 ML SYRINGE MM PRN (09:00)
[2019-08-04] MEDS ORDERED: MIDAZOLAM 2 MG/2 ML (VERSED) VIAL ONE ×3 (10:17→10:43)
[2019-08-04] MEDS ORDERED: fentaNYL INJECTION 100 MCG/2 ML AMP ONE ×2 (10:17)
[2019-08-04] MEDS ORDERED: LIDOCAINE JELLY 2% 6 ML SYRINGE ONE (10:23)
--- NOTE | 2019-08-04 11:18 | Conscious Sedation/ASA ---
Conscious Sedation Pre-Proced Time 09:40 ASA Score 2 For ASA 3 and 4: Consider anesthesia and medical clearance. Also, for patients with a history of failed moderate sedation consider anesthesia. Airway Lungs Heart ASA score ASA 1: a normal healthy patient ASA 2: a patient with a mild systemic disease (mid diabetes, controlled hypertension, obesity ASA 3: a patient with a severe systemic disease that limits activity (angina, COPD, prior Myocardial infarction) ASA 4: a patient with an incapacitating disease that is a constant threat to life (CHF, renal failure) ASA 5: a moribund patient not expected to survive 24 hrs. (ruptured aneurysm) ASA 6: a declared brain- patient whose organs are being harvested. For emergent operations, add the letter E after the classification Mallampati Classification Grade 2 Sedation Plan Analgesia, Amnesia, Plan communicated to team members, Discussed options with patient/fam, Discussed risks with patient/fam The patient is an appropriate candidate to undergo the planned procedure, sedation, and anesthesia. The patient immediately re-assessed prior to indication. MAXIMILIAN TOM MD Aug 04, 2019 11:18
--- NOTE | 2019-08-04 11:19 | Progress Note-Pre Operative ---
Pre-Operative Progress Note H&P Reviewed The H&P was reviewed, patient examined and no changes noted. Date Seen by Provider: Aug 04, 2019 Time Seen by Provider: 09:40 Date H&P Reviewed: Aug 04, 2019 Time H&P Reviewed: 09:40 Pre-Operative Diagnosis: screening MAXIMILIAN Shaikh MD Aug 04, 2019 11:19
--- NOTE | 2019-08-04 11:20 | Progress Note-Post Operative ---
Post-Operative Progess Note Surgeon (s)/Technical Applications Scientist (s) Surgeon MAXIMILIAN TOM MD Technical Applications Scientist: none Pre-Operative Diagnosis screening colo Post-Operative Diagnosis perineal excoriation, moderate proctitis, sigmoid and descending colitis, sigmoid diverticulitis. Procedure & Operative Findings Date of Procedure 08/04/19 Procedure Performed/Findings Colonoscopy with bx. Anesthesia Type cs Estimated Blood Loss Estimated blood loss (mL): minimal Specimens/Packing Specimens Removed rectum, sigmoid MAXIMILIAN TOM MD Aug 04, 2019 11:20
[2019-08-04] MEDS ORDERED: METR500T PO (11:23)
[2019-08-04] MEDS ORDERED: CLOT15CR4 TP (11:23)
[2019-08-04] MEDS ORDERED: CIPR-225 PO (11:23)
--- NOTE | 2019-08-04 11:24 | Discharge Inst-Surgical ---
D/C Lap Instructions-KIDO New, Converted, or Re-Newed RX: RX on Chart Follow Up Appt in 2 weeks Activity as tolerated Avoid Alcohol, Caffeine, Spicy Camilla and Acid foods. Drink 64 fluid oz or more of fluids per day. Symptoms to Report: Fever over 101 degree F, Nausea/Vomiting If any problems/questions: Contact your physician or go to Emergency Room MAXIMILIAN TOM MD Aug 04, 2019 11:24
[2019-08-04] MEDS ORDERED: morphine INJ 10 MG/ML 1ML (SYR OR VIAL) IVP PRN ×2 (11:30)
[2019-08-04] MEDS ORDERED: HYDROcodone/APAP 5 MG/325 MG (LORTAB) TAB PO PRN (11:30)
[2019-08-04] MEDS ORDERED: ACETAMINOPHEN 325 MG TABLET PO PRN (11:30)
[2019-08-04] MEDS ORDERED: ONDANSETRON 4 MG/2 ML (SDV) Z0FRAN IVP PRN (11:30)
--- NOTE | 2019-08-04 19:12 | OPERATIVE REPORT ---
DATE OF SERVICE: 08/04/2019 ATTENDING PRIMARY CARE PHYSICIAN: Dr. Spears. PREOPERATIVE DIAGNOSIS: Screening colonoscopy, rectal bleed. POSTOPERATIVE DIAGNOSES: Perineal excoriation, proctitis, sigmoid colitis and diverticulitis. PROCEDURES: Colonoscopy with biopsy. SURGEON: Maximilian Tom MD ANESTHESIA: Conscious sedation. ESTIMATED BLOOD LOSS: Minimal. FINDINGS: Perineal excoriation, proctitis, sigmoid colitis and diverticulitis. DISPOSITION: The patient tolerated the procedure well. INDICATIONS: The patient is a 78-year-old female, who was referred over to us for screening colonoscopy. She reports her last colonoscopy was approximately 10 years ago where a rectal polyp was identified and found to be hyperplastic benign polyp. She states that she is doing well and does not report any issues with constipation or diarrhea as well as no abdominal pain. Upon examination before the procedure, she did have significant amount of excoriation of the perineum more likely consistent with diarrhea and incontinence as well as yeast infection. DESCRIPTION OF PROCEDURE: The patient was brought to the endoscopy suite, laid in the left lateral decubitus position. After adequate IV pain and sedative medications and conscious sedation anesthesia, a digital rectal examination was performed. As mentioned before, she had significant excoriation of the perineum extending into the gluteal cleft and vagina. A digital rectal examination was performed, which revealed a normal sphincter tone and there were no palpable masses. The endoscope was then intubated into the anus and rectum was gently insufflated. The endoscope was then advanced to the valves of [place] of the rectum with proctitis identified. A biopsy was taken using forceps with visualization of good hemostasis. This inflammation also did extend into the sigmoid colon where diverticulosis were also identified. A biopsy was taken of the sigmoid colon with forceps with visualization of good hemostasis. The endoscope was then advanced through the descending colon and the transverse colon. At the transverse colon, there was no inflammation. The remainder of the transverse, ascending colon to the cecum were normal. The endoscope was then slowly withdrawn while taking a second look and suctioning of residual air with no additional findings. The patient tolerated the procedure well. Due to her history of coronary artery disease and hypertension as well as hypercholesterolemia, it appears that she may have an ischemic colitis and intermittent episodes of diarrhea; however, this may also be related to diverticulitis. It also appears that she does have some level of chronic diarrhea and inflammation of the perineum and we will start her on treatment with ciprofloxacin and Flagyl both b.i.d. for seven days to decrease her diarrhea and Lotrisone cream for the perineum b.i.d. We will have her follow up in approximately two weeks. Job ID: [id number] DocumentID: [id number] Dictated Date: 08/04/2019 11:14:00 Framing Manager Date: 08/04/2019 19:11:16 Dictated By: MAXIMILIAN TOM MD
== END 2019-08-04 12:10 | disposition home or self-care (01) ==
LOC: ENDO 08:38
PROVIDERS: ATTEND Surgery
DX: Z12.11 Encounter for screening for malignant neoplasm of colon (principal); K57.30 Diverticulosis of large intestine without perforation or abscess without bleeding; K63.89 Other specified diseases of intestine; S30.814A Abrasion of vagina and vulva, initial encounter; K21.9 Gastro-esophageal reflux disease without esophagitis; E78.00 Pure hypercholesterolemia, unspecified; I12.9 Hypertensive chronic kidney disease with stage 1 through stage 4 chronic kidney disease, or unspecified chronic kidney disease; N18.3 Chronic kidney disease, stage 3 (moderate); I25.10 Atherosclerotic heart disease of native coronary artery without angina pectoris; Z90.710 Acquired absence of both cervix and uterus; Z88.0 Allergy status to penicillin; Z88.8 Allergy status to other drugs, medicaments and biological substances; Z79.82 Long term (current) use of aspirin; Z79.02 Long term (current) use of antithrombotics/antiplatelets; Z79.899 Other long term (current) drug therapy; Z87.891 Personal history of nicotine dependence; Z83.3 Family history of diabetes mellitus; Z80.41 Family history of malignant neoplasm of ovary; Z82.49 Family history of ischemic heart disease and other diseases of the circulatory system
CPT/HCPCS: 88305

== ENCOUNTER → 2019-08-18 | Outpatient (CLI) | payer MEDICARE, OTHER ==
[~2019-08-18] MED LIST changes: +CIPR-225 PO; +CLOT15CR4 TP; +METR500T PO; -NS IV 500 ML 500 ML ONE
[2019-08-18 10:06] LABS: HEMOGLOBIN 10.2 G/DL (11.5-16.0); MEAN PLATELET VOLUME 9.6 FL (7.4-10.4); RED CELL DISTRIBUTION WIDTH 15.1 % (10.0-14.5); WHITE BLOOD COUNT 5.5 10^3/uL (4.3-11.0)
[2019-08-18 10:36] LABS: ALBUMIN 3.5 GM/DL (3.2-4.5); CALCIUM 9.3 MG/DL (8.5-10.1); CREATININE SERUM 2.95 MG/DL (0.60-1.30); PHOSPHORUS 3.9 MG/DL (2.3-4.7); POTASSIUM 4.6 MMOL/L (3.6-5.0); URIC ACID 6.5 MG/DL (2.6-7.2)
[2019-08-18 10:36] LABS: BILIRUBIN,URINE NEGATIVE (NEGATIVE); CLARITY,URINE VERY CLOUDY; COLOR,URINE OTHER; GLUCOSE, URINE (UA) NEGATIVE (NEGATIVE); KETONES,URINE NEGATIVE (NEGATIVE); LEUKOCYTE ESTERASE ,URINE 3+ (NEGATIVE); NITRITE,URINE NEGATIVE (NEGATIVE); PH,URINE 7 (5-9); PROTEIN,URINE 3+ (NEGATIVE); UROBILINOGEN,URINE NORMAL (NORMAL)
[2019-08-18 10:58] LABS: BACTERIA,URINE FEW /HPF; WBC,URINE TNTC /HPF
[2019-08-18 10:59] LABS: SQUAMOUS EPITHELIAL CELL,UR RARE /HPF
== END ==
LOC: LAB 09:14
PROVIDERS: ATTEND Internal Medicine Nephrology
DX: I13.0 Hypertensive heart and chronic kidney disease with heart failure and stage 1 through stage 4 chronic kidney disease, or unspecified chronic kidney disease (principal); N18.4 Chronic kidney disease, stage 4 (severe); I50.9 Heart failure, unspecified; E78.5 Hyperlipidemia, unspecified; N17.9 Acute kidney failure, unspecified; K21.9 Gastro-esophageal reflux disease without esophagitis; N39.0 Urinary tract infection, site not specified; N13.9 Obstructive and reflux uropathy, unspecified; R60.9 Edema, unspecified; E55.9 Vitamin D deficiency, unspecified; R31.9 Hematuria, unspecified; R80.9 Proteinuria, unspecified; E87.2 Acidosis; D63.1 Anemia in chronic kidney disease; E79.0 Hyperuricemia without signs of inflammatory arthritis and tophaceous disease; N25.81 Secondary hyperparathyroidism of renal origin; E04.9 Nontoxic goiter, unspecified; R32 Unspecified urinary incontinence
CPT/HCPCS: 36415; 80069; 81000; 82306; 82570; 82728; 83540; 83970; 84156; 84550; 85027; 87077; 87088; 87186

== ENCOUNTER → 2019-10-25 | Outpatient (CLI) | payer MEDICARE, OTHER ==
[~2019-10-25] MED LIST changes: -ACET-2429 PO; +ACET650T41 PO; +OMEP40CA27 PO; -OMEP40CA36 PO; -PYRI100T2 PO; +PYRI100T4 PO; +SIMV20TA26 PO
[2019-10-25 14:00] LABS: BILIRUBIN,URINE NEGATIVE (NEGATIVE); CLARITY,URINE CLEAR; COLOR,URINE YELLOW; GLUCOSE, URINE (UA) NEGATIVE (NEGATIVE); KETONES,URINE NEGATIVE (NEGATIVE); LEUKOCYTE ESTERASE ,URINE 3+ (NEGATIVE); NITRITE,URINE NEGATIVE (NEGATIVE); PROTEIN,URINE 1+ (NEGATIVE)
[2019-10-25 14:03] LABS: BASOPHILS # (AUTO) 0.1 10^3/uL (0.0-0.1); BASOPHILS % (AUTO) 1 % (0-10); EOSINOPHILS # (AUTO) 0.5 10^3/uL (0.0-0.3); EOSINOPHILS % (AUTO) 7 % (0-10); HEMATOCRIT 34 % (35-52); HEMOGLOBIN 10.7 G/DL (11.5-16.0); LYMPHOCYTES % (AUTO) 14 % (12-44); MEAN CORPUSCULAR HEMOGLOBIN 29 PG (25-34); MEAN CORPUSCULAR HGB CONC 32 G/DL (32-36); MEAN CORPUSCULAR VOLUME 92 FL (80-99); MONOCYTES # (AUTO) 0.9 X 10^3 (0.0-1.0); MONOCYTES % (AUTO) 12 % (0-12); NEUTROPHILS # (AUTO) 4.8 X 10^3 (1.8-7.8); NEUTROPHILS % (AUTO) 67 % (42-75); PLATELET COUNT 249 10^3/uL (130-400); RED CELL DISTRIBUTION WIDTH 14.3 % (10.0-14.5); WHITE BLOOD COUNT 7.1 10^3/uL (4.3-11.0)
[2019-10-25 14:25] LABS: ALBUMIN 3.8 GM/DL (3.2-4.5); CREATININE SERUM 2.91 MG/DL (0.60-1.30); PHOSPHORUS 4.2 MG/DL (2.3-4.7); POTASSIUM 4.3 MMOL/L (3.6-5.0)
[2019-10-25 14:38] LABS: BACTERIA,URINE FEW /HPF; WBC,URINE TNTC /HPF
== END ==
LOC: LAB 13:23
PROVIDERS: ATTEND Internal Medicine Nephrology
DX: I13.0 Hypertensive heart and chronic kidney disease with heart failure and stage 1 through stage 4 chronic kidney disease, or unspecified chronic kidney disease (principal); I50.9 Heart failure, unspecified; N18.4 Chronic kidney disease, stage 4 (severe); E78.5 Hyperlipidemia, unspecified; N17.9 Acute kidney failure, unspecified; K21.9 Gastro-esophageal reflux disease without esophagitis; N39.0 Urinary tract infection, site not specified; N13.9 Obstructive and reflux uropathy, unspecified; R60.9 Edema, unspecified; E55.9 Vitamin D deficiency, unspecified; R31.9 Hematuria, unspecified; R80.9 Proteinuria, unspecified; E87.2 Acidosis; D64.9 Anemia, unspecified; E79.0 Hyperuricemia without signs of inflammatory arthritis and tophaceous disease; N25.81 Secondary hyperparathyroidism of renal origin; E04.9 Nontoxic goiter, unspecified; R32 Unspecified urinary incontinence
CPT/HCPCS: 36415; 80069; 81000; 82306; 82570; 83970; 84156; 84550; 85025; 87088

== ENCOUNTER 2019-11-12 13:00 | Outpatient (RCR) | payer MEDICARE, OTHER ==
[2019-11-05 12:53] VITALS: BP 131/61
[2019-11-05] MEDS: FERRIC CARBOXYMALTOSE INJ 750 MG in NS (IVPB) 250 ML IV SCH (13:55)
[~2019-11-12 13:00] MED LIST changes: +ACET-2429 PO; -ACET650T41 PO; +ACETAMINOPHEN 500 MG TAB (TYLENOL) PO PRN; -OMEP40CA27 PO; +OMEP40CA36 PO; +PYRI100T2 PO; -PYRI100T4 PO; -SIMV20TA26 PO; +diphenhydrAMINE 50 MG/ML INJ (BENADRYL) IV PRN
[2019-11-12] MEDS: FERRIC CARBOXYMALTOSE INJ 750 MG in NS (IVPB) 250 ML IV SCH (13:25)
[2019-11-12 15:19] VITALS: BP 138/47
== END 2019-11-12 13:55 | disposition home or self-care (01) ==
LOC: SDC 13:00
PROVIDERS: ATTEND Internal Medicine Nephrology
DX: D63.1 Anemia in chronic kidney disease (principal); N18.4 Chronic kidney disease, stage 4 (severe)
CPT/HCPCS: 96365

== ENCOUNTER → 2019-11-19 | Outpatient (CLI) | payer MEDICARE, OTHER ==
[~2019-11-19] MED LIST changes: -ACETAMINOPHEN 500 MG TAB (TYLENOL) PO PRN; -diphenhydrAMINE 50 MG/ML INJ (BENADRYL) IV PRN
[2019-11-19 12:29] LABS: BASOPHILS # (AUTO) 0.1 10^3/uL (0.0-0.1); BASOPHILS % (AUTO) 1 % (0-10); EOSINOPHILS # (AUTO) 0.2 10^3/uL (0.0-0.3); EOSINOPHILS % (AUTO) 3 % (0-10); HEMATOCRIT 36 % (35-52); HEMOGLOBIN 11.3 G/DL (11.5-16.0); LYMPHOCYTES # (AUTO) 1.1 X 10^3 (1.0-4.0); LYMPHOCYTES % (AUTO) 15 % (12-44); MEAN CORPUSCULAR HEMOGLOBIN 30 PG (25-34); MEAN CORPUSCULAR HGB CONC 32 G/DL (32-36); MEAN CORPUSCULAR VOLUME 95 FL (80-99); MEAN PLATELET VOLUME 9.2 FL (7.4-10.4); MONOCYTES # (AUTO) 0.9 X 10^3 (0.0-1.0); MONOCYTES % (AUTO) 13 % (0-12); NEUTROPHILS # (AUTO) 4.7 X 10^3 (1.8-7.8); NEUTROPHILS % (AUTO) 68 % (42-75); PLATELET COUNT 206 10^3/uL (130-400); RED CELL DISTRIBUTION WIDTH 15.4 % (10.0-14.5)
[2019-11-19 12:34] LABS: BILIRUBIN,URINE NEGATIVE (NEGATIVE); CLARITY,URINE SL CLOUDY; COLOR,URINE YELLOW; GLUCOSE, URINE (UA) NEGATIVE (NEGATIVE); KETONES,URINE NEGATIVE (NEGATIVE); LEUKOCYTE ESTERASE ,URINE 3+ (NEGATIVE); NITRITE,URINE NEGATIVE (NEGATIVE); PH,URINE 6.5 (5-9); PROTEIN,URINE 1+ (NEGATIVE)
[2019-11-19 12:43] LABS: BACTERIA,URINE MODERATE /HPF; SQUAMOUS EPITHELIAL CELL,UR 0-2 /HPF; WBC,URINE TNTC /HPF
[2019-11-19 12:51] LABS: ALBUMIN 3.7 GM/DL (3.2-4.5); CREATININE SERUM 2.81 MG/DL (0.60-1.30); POTASSIUM 4.5 MMOL/L (3.6-5.0)
== END ==
LOC: LAB 11:53
PROVIDERS: ATTEND Internal Medicine Nephrology
DX: I13.0 Hypertensive heart and chronic kidney disease with heart failure and stage 1 through stage 4 chronic kidney disease, or unspecified chronic kidney disease (principal); I50.9 Heart failure, unspecified; E78.5 Hyperlipidemia, unspecified; N17.9 Acute kidney failure, unspecified; K21.9 Gastro-esophageal reflux disease without esophagitis; N39.0 Urinary tract infection, site not specified; N13.9 Obstructive and reflux uropathy, unspecified; N18.4 Chronic kidney disease, stage 4 (severe); E55.9 Vitamin D deficiency, unspecified; E87.2 Acidosis; D63.1 Anemia in chronic kidney disease; E79.0 Hyperuricemia without signs of inflammatory arthritis and tophaceous disease; N25.81 Secondary hyperparathyroidism of renal origin; E04.9 Nontoxic goiter, unspecified
CPT/HCPCS: 36415; 80069; 81000; 82306; 82570; 83970; 84156; 85025; 87077; 87088; 87186

== ENCOUNTER → 2020-04-18 | Outpatient (CLI) | payer MEDICARE, OTHER ==
[~2020-04-18] MED LIST changes: -ACET-2429 PO; +ACET650T41 PO; +ATOR40TA PO; +AZIT250T12 PO; +CARV12.53 PO; +CYAN250014 PO; +IPRA3AMP31 INH; +MIRA50TA PO; +NITR0.4T42 SL; +NITR100C PO; +NITR50CA PO; +OMEP40CA27 PO; -OMEP40CA36 PO; +OMG1KC PO; +PYRI100T10 PO; -PYRI100T2 PO; +SIMV20TA26 PO
[2020-04-18 10:24] LABS: BASOPHILS # (AUTO) 0.1 10^3/uL (0.0-0.1); BASOPHILS % (AUTO) 1 % (0-10); EOSINOPHILS # (AUTO) 0.2 10^3/uL (0.0-0.3); EOSINOPHILS % (AUTO) 3 % (0-10); HEMATOCRIT 40 % (35-52); HEMOGLOBIN 12.7 G/DL (11.5-16.0); LYMPHOCYTES # (AUTO) 1.4 X 10^3 (1.0-4.0); LYMPHOCYTES % (AUTO) 16 % (12-44); MEAN CORPUSCULAR HEMOGLOBIN 31 PG (25-34); MEAN CORPUSCULAR HGB CONC 32 G/DL (32-36); MEAN CORPUSCULAR VOLUME 98 FL (80-99); MEAN PLATELET VOLUME 9.7 FL (7.4-10.4); MONOCYTES # (AUTO) 1.1 X 10^3 (0.0-1.0); MONOCYTES % (AUTO) 12 % (0-12); NEUTROPHILS % (AUTO) 69 % (42-75); PLATELET COUNT 214 10^3/uL (130-400); RED CELL DISTRIBUTION WIDTH 14.2 % (10.0-14.5); WHITE BLOOD COUNT 8.8 10^3/uL (4.3-11.0)
[2020-04-18 10:31] LABS: BILIRUBIN,URINE NEGATIVE (NEGATIVE); CLARITY,URINE CLOUDY; COLOR,URINE YELLOW; GLUCOSE, URINE (UA) NEGATIVE (NEGATIVE); KETONES,URINE NEGATIVE (NEGATIVE); LEUKOCYTE ESTERASE ,URINE 3+ (NEGATIVE); NITRITE,URINE NEGATIVE (NEGATIVE); PROTEIN,URINE NEGATIVE (NEGATIVE)
[2020-04-18 10:34] LABS: ALBUMIN 4.1 GM/DL (3.2-4.5); POTASSIUM 4.3 MMOL/L (3.6-5.0)
[2020-04-18 10:40] LABS: CREATININE SERUM 2.48 MG/DL (0.60-1.30); PHOSPHORUS 4.4 MG/DL (2.3-4.7)
[2020-04-18 10:56] LABS: BACTERIA,URINE FEW /HPF; SQUAMOUS EPITHELIAL CELL,UR 0-2 /HPF; WBC,URINE TNTC /HPF
== END ==
LOC: LAB 10:03
PROVIDERS: ATTEND Internal Medicine Nephrology
DX: I13.0 Hypertensive heart and chronic kidney disease with heart failure and stage 1 through stage 4 chronic kidney disease, or unspecified chronic kidney disease (principal); I50.9 Heart failure, unspecified; E78.5 Hyperlipidemia, unspecified; N17.9 Acute kidney failure, unspecified; K21.9 Gastro-esophageal reflux disease without esophagitis; N39.0 Urinary tract infection, site not specified; N13.9 Obstructive and reflux uropathy, unspecified; R60.9 Edema, unspecified; E55.9 Vitamin D deficiency, unspecified; N18.4 Chronic kidney disease, stage 4 (severe); R31.9 Hematuria, unspecified; R80.9 Proteinuria, unspecified; E87.2 Acidosis; D64.9 Anemia, unspecified; E79.0 Hyperuricemia without signs of inflammatory arthritis and tophaceous disease; N25.81 Secondary hyperparathyroidism of renal origin; E04.9 Nontoxic goiter, unspecified; R32 Unspecified urinary incontinence
CPT/HCPCS: 36415; 80069; 81000; 82306; 82570; 83970; 84156; 84550; 85025; 87088

== ENCOUNTER 2020-08-17 06:57 | Day surgery (SDC) | payer MEDICARE, OTHER ==
[~2020-08-17] VITALS: Ht 167 cm; Wt 53.0 kg
[~2020-08-17 06:57] MED LIST changes: +ASPI-1238 PO; -ASPI-983 PO; +ENAL20TA16 PO; +NF-SODBICA PO; -SODI650T PO
[2020-08-17] MEDS ORDERED: NS IV 1000 ML 1,000 ML ONE (06:59)
[2020-08-17] MEDS ORDERED: HEParin (CATH LAB) 1,000 ML IV ONE (06:59)
[2020-08-17] MEDS ORDERED: LIDOCAINE 1% INJ 20 ML 20 ML VIAL ONE (06:59)
[2020-08-17] MEDS ORDERED: NS IV 1000 ML 1,000 ML IV ONE (07:02)
[2020-08-17 07:15] VITALS: BP 134/71
[2020-08-17] MEDS ORDERED: VANCOMYCIN INJECTION 1,000 MG in NS (IVPB) 250 ML IV ONE (07:15)
[2020-08-17] MEDS ORDERED: BACITRACIN INJECTION 50,000 UNIT, SODIUM CHLORIDE 0.9% IRRIGATIO 500 ML IR ONE ×2 (07:15)
[2020-08-17] MEDS ORDERED: SIMV20TA26 PO (07:29)
[2020-08-17] MEDS ORDERED: FURO40TA4 PO (07:29)
[2020-08-17] MEDS ORDERED: NITR100C PO (07:29)
[2020-08-17] MEDS ORDERED: NFNEB10T PO (07:29)
[2020-08-17] MEDS ORDERED: AMLO5TAB9 PO (07:29)
[2020-08-17 07:30] LABS: HEMOGLOBIN 11.3 g/dL (11.5-16.0); MEAN PLATELET VOLUME 9.3 fL (9.0-12.2); WHITE BLOOD COUNT 6.6 10^3/uL (4.3-11.0)
[2020-08-17 07:51] LABS: ALBUMIN 3.9 GM/DL (3.2-4.5); BILIRUBIN,TOTAL 0.3 MG/DL (0.1-1.0); CALCIUM 9.7 MG/DL (8.5-10.1); CREATININE SERUM 2.55 MG/DL (0.60-1.30); POTASSIUM 4.6 MMOL/L (3.6-5.0); TOTAL PROTEIN 7.8 GM/DL (6.4-8.2)
[2020-08-17 07:54] LABS: PROTHROMBIN TIME PATIENT 13.3 SEC (12.2-14.7)
[2020-08-17] MEDS ORDERED: fentaNYL INJECTION 100 MCG/2 ML AMP ONE ×2 (08:48→09:40)
[2020-08-17] MEDS ORDERED: MIDAZOLAM 5 MG/5 ML (VERSED) VIAL ONE ×2 (08:48→09:40)
--- NOTE | 2020-08-17 09:20 | Cardiac Procedure Note-CS/ASA ---
Pre-Procedure Note Pre-Op Procedure Note H&P Reviewed The H&P was reviewed, patient examined and no changes noted. Date H&P Reviewed: Aug 17, 2020 Time H&P Reviewed: 08:45 Conscious Sedation Pre-Proced Time 08:45 ASA Score 3 For ASA 3 and 4: Consider anesthesia and medical clearance. Also, for patients with a history of failed moderate sedation consider anesthesia. Airway Lungs Heart ASA score ASA 1: a normal healthy patient ASA 2: a patient with a mild systemic disease (mid diabetes, controlled hypertension, obesity ASA 3: a patient with a severe systemic disease that limits activity (angina, COPD, prior Myocardial infarction) ASA 4: a patient with an incapacitating disease that is a constant threat to life (CHF, renal failure) ASA 5: a moribund patient not expected to survive 24 hrs. (ruptured aneurysm) ASA 6: a declared brain- patient whose organs are being harvested. For emergent operations, add the letter E after the classification Mallampati Classification Grade 1 Sedation Plan Analgesia, Amnesia, Plan communicated to team members, Discussed options with patient/fam, Discussed risks with patient/fam The patient is an appropriate candidate to undergo the planned procedure, sedation, and anesthesia. The patient immediately re-assessed prior to indication. Ky HERRMANN MD Aug 17, 2020 09:20
[2020-08-17] MEDS ORDERED: diphenhydrAMINE 50 MG/ML INJ (BENADRYL) ONE (09:40)
[2020-08-17] MEDS ORDERED: proPOfol 200 MG/20 ML (DIPRIVAN) VIAL IV ONE (10:42)
[2020-08-17] MEDS ORDERED: NS IV 1000 ML 1,000 ML IV SCH (11:24)
--- NOTE | 2020-08-17 11:24 | BiVentricular ICD Implantation ---
BiVentricular ICD Implant BIVENTRICULAR-ICD DATE OF SERVICE: 08/17/20 CARDIAC MANAGER OF SCHOOL: Kathie Healy MD INDICATION: 1. Severe LV systolic dysfunction with an EF of 30-35 percent on aggressive goal-directed medical therapy for at least 3 months. 2. Left bundle branch block. 3. [place] Heart Association class III heart failure. PREOPERATIVE DIAGNOSES: 1. Severe LV systolic dysfunction with an EF of 30-35 percent on aggressive goal-directed medical therapy for at least 3 months. 2. Left bundle branch block. 3. [place] Heart Association class III heart failure. POSTOPERATIVE DIAGNOSES: 1. Successful biventricular ICD implantation. HISTORY: This is a 79year old female with Severe LV systolic dysfunction with LBBB and NYHA class III, biventricular ICD implantation is recommended. PROCEDURE PERFORMED: 1. Biventricular ICD implantation. 2. DFT. COMPLICATIONS: None. ESTIMATED BLOOD LOSS: 20 mL. SPECIMENS: None. ANESTHESIA: Conscious sedation. ORAL ANTICOAGULATION: None. FLUOROSCOPY TIME: 14.41 minutes. FLUOROSCOPY DOSE: 49 MGY. CONTRAST DOSE: 10 mL PROCEDURE DETAILS: Informed consent was taken before the procedure was started. All the risks and complications were explained in detail which included vascular damage, pneumothorax, cardiac perforation, bleeding and infection. Once the patient accepted all the risks and complications, she was brought to the EP lab. The patient was given 1 gram of Vancomycin before the procedure. She was draped and prepped in the usual sterile fashion. A left-sided incision was performed just below the clavicle and dissection was carried down to the pectoralis fascia. under fluoroscopic guidance, the axillary vein was accessed 3 times and 3 J-tip wires were placed via the axillary vein into the IVC. We then took a 9-[place] Medtronic extended hook guide catheter and advanced it over the long wire. We had already placed a 9-[place] sheath in it. Under fluoroscopic guidance, we were able to cross into the coronary sinus with the wire. We then took a guide cath into the coronary sinus. A small amount of contrast was injected, which showed that we were indeed in the proximal segment of the coronary sinus. The venogram showed that a reasonable vein was a posterior lateral branch. We then took a Medtronic Quad CS lead with the Choice PT wire and placed it into the coronary sinus. We were able to put the coronary wire into the posterior lateral vein distally and then were able to advance the CS lead. The CS lead was checked, which showed excellent sensitivity and threshold and no diaphragmatic stimulation. The wire was therefore taken out, the sheath was slit. The lead was still in its original place. The LV lead was then sutured to the pectoralis fascia with 2.0 nonabsorbable sutures. We put a 9-[place] sheath in one of the J-tip wire in the axillary vein and then took single-coil RV ICD and advanced it and crossed under fluoroscopic guidance, crossed the tricuspid valve and placed it into the RV apex. The lead screw was deployed under fluoroscopic guidance. The lead was tested perioperatively and showed excellent sensitivity and capture threshold. There was no diaphragmatic stimulation. The sheath was therefore taken out and the lead was sutured to the muscle and pectoralis fascia with 2.0 nonabsorbable sutures. We put a 7-[place] sheath in one of the J-tip wire in the axillary vein and then took RA lead and advanced it and crossed under fluoroscopic guidance placed it into the RAA. The lead screw was deployed under fluoroscopic guidance. The lead was tested perioperatively and showed excellent sensitivity and capture threshold. There was no diaphragmatic stimulation. The sheath was therefore taken out and the lead was sutured to the muscle and pectoralis fascia with 2.0 nonabsorbable sutures. The RA, RV and LV leads were attached to a BiV ICD. The pocket was flushed. The device was placed in the pocket. DFT testing was done with anesthesia support. The induction mechanism was a T- shock at 300 ms and 1.2 J. VF was noted. Successful defibrillation with 25 J. The wound was closed in 2 layers. The first layer was 6 interrupted 2-0 absorbable sutures. The next layer with which we closed the skin was a 4-0 silk. The skin was cleaned and Steri-Strips were placed and a bandage was placed on top. The patient was transferred to the intensive care unit unit in stable condition. DEVICE INFORMATION: Medtronic CRTD [id number] AMPLIA MRI QUAD US DF4, model number DTM [id number], serial number [id number] LEADS: 1. The right atrial lead: Medtronic Model number [id number], length 52, serial number [id number]. 2. RV ICD lead, Medtronic model number [id number], length 62, serial number [id number] 3. LV CS lead, Medtronic model number [id number], length 88, serial number [id number] PERIOPERATIVE DEVICE INTERROGATION: 1. Right atrium capture threshold 1.0 V at 0.5 ms, impedance 644 ohms, P-wave 2.1 mV. 2. Right ventricle, capture threshold 1.0 V at 0.5 ms, impedance 745 ohms, R wave 12.5 mV. 3. LV, LV1 to LV2. Capture threshold 1.5 V at 0.5 ms, impedance 649 ohms. IMPRESSION AND CONCLUSION: 1. Successful left-sided biventricular implantable cardioverter-defibrillator placement. 2. The patient will be transferred to the intensive care unit. She will receive vancomycin. 3. Postoperative EKG will be performed. 4. Chest x-ray will be done to rule out pneumothorax. 5. Device interrogation will be performed again in the morning. Kathie Healy MD, [facility] Cardiac Electrophysiology Ky HEALY MD Aug 17, 2020 11:24
[2020-08-17] MEDS ORDERED: PATIENT MAY USE OWN MEDS, ALL PO SCH (11:30)
--- NOTE | 2020-08-17 11:51 | Anesthesia-General Post-Op ---
MAC Patient Condition Mental Status/LOC: Same as Preop Cardiovascular: Satisfactory Nausea/Vomiting: Absent Respiratory: Satisfactory Pain: Controlled Complications: Absent Post Op Complications Complications None Follow Up Care/Instructions Patient Instructions None needed. Anesthesiology Discharge Order Discharge Order Patient is doing well, no complaints, stable vital signs, no apparent adverse anesthesia problems. No complications reported per nursing. KISHORE ALLEN CRNA Aug 17, 2020 11:51
[2020-08-17 12:00] VITALS: BP 126/70
--- NOTE | 2020-08-17 14:47 | Diagnostic Imaging Report ---
INDICATION: AICD placement. TIME OF EXAM: 11:53 AM Correlation is made with prior chest 01/22/2020. Cardiac defibrillator has been placed with lead tips in the region of the right atrium and right ventricle. No pneumothorax is identified. There is a moderate right pleural effusion present. No significant left-sided pleural fluid is identified. There is some atelectasis or infiltrate right base. IMPRESSION: 1. Defibrillator placement. No pneumothorax is detected. 2. Moderate right effusion with right basilar infiltrate or atelectasis. Dictated by: Dictated on workstation # [id number]
[2020-08-17] MEDS ORDERED: HYDROcodone/APAP 5 MG/325 MG (LORTAB) TAB ONE (15:29)
[2020-08-17] MEDS: HYDROcodone/APAP 5 MG/325 MG (LORTAB) TAB PO PRN (15:35)
[2020-08-17 16:00] VITALS: BP 111/61
[2020-08-17 20:00] VITALS: BP 124/68
[2020-08-17 23:01] VITALS: BP 117/72
[2020-08-18] MEDS: HYDROcodone/APAP 5 MG/325 MG (LORTAB) TAB PO PRN ×2 (01:53→09:04)
[2020-08-18 03:01] VITALS: BP 117/57
[2020-08-18 03:34] LABS: HEMOGLOBIN 8.9 g/dL (11.5-16.0); WHITE BLOOD COUNT 5.7 10^3/uL (4.3-11.0)
[2020-08-18 03:57] LABS: ALBUMIN 3.1 GM/DL (3.2-4.5); POTASSIUM 5.1 MMOL/L (3.6-5.0)
[2020-08-18 03:58] LABS: CALCIUM 8.6 MG/DL (8.5-10.1)
[2020-08-18 04:01] LABS: BILIRUBIN,TOTAL 0.3 MG/DL (0.1-1.0)
[2020-08-18 04:03] LABS: CREATININE SERUM 2.11 MG/DL (0.60-1.30)
[2020-08-18 08:00] VITALS: BP 124/73
--- NOTE | 2020-08-18 08:21 | Progress Note - Cardiology ---
Cardiology SOAP Progress Note Subjective: Some tenderness at site of implant. No other cp No palp or syncope No shortness of breath at rest No n/v/d No focal weakness Wishes to go home Objective: I&O/Vital Signs 08/17/20 08/18/20 08/18/20 08/18/20 23:01 01:00 03:01 07:00 Temp 36.9 36.6 Pulse 81 82 75 82 Resp 18 16 B/P (MAP) 117/72 (87) 117/57 (77) Pulse Ox 96 96 O2 Delivery Room Air Room Air 08/18/20 08:00 Temp 36.3 Pulse 80 Resp 19 B/P (MAP) 124/73 (90) Pulse Ox 95 O2 Delivery Room Air 08/18/20 00:00 Intake Total 1150 ml Balance 1150 ml Weight (Pounds): 147 Weight (Ounces): 0.0 Weight (Calculated Kilograms): 66.519074 Device Insertion Site: without hematoma Bruising: mild bruising Constitutional: AAO x 3, other (thin-appearing) Respiratory: No accessory muscle use; other (good bilateral air entry) Cardiovascular: regular rate-rhythm, S1 and S2, systolic murmur (soft JANNA at card base) Gastrointestional: No tender; soft; No guarding, No rebound; audible bowel sounds Extremities: No clubbing, No cyanosis, No significant edema Neurologic/Psychiatric: oriented x 3, other (moves all limbs equally) Skin: No rash on exposed areas, No ulcerations on exposed areas Results/Procedures: Labs Laboratory Tests 08/18/20 02:40: White Blood Count 5.7, Red Blood Count 2.89L, Hemoglobin 8.9#L, Hematocrit 29L, Mean Corpuscular Volume 100H, Mean Corpuscular Hemoglobin 31, Mean Corpuscular Hemoglobin Concent 31L, Red Cell Distribution Width 12.9, Platelet Count 187, Mean Platelet Volume 10.0, Sodium Level 135, Potassium Level 5.1H, Chloride Level 109H, Carbon Dioxide Level 18L, Anion Gap 8, Blood Urea Nitrogen 47H, Creatinine 2.11H, Estimat Glomerular Filtration Rate 23, BUN/Creatinine Ratio 22, Glucose Level 83, Calcium Level 8.6, Corrected Calcium 9.3, Total Bilirubin 0.3, Aspartate Amino Transf (AST/SGOT) 15, Alanine Aminotransferase (ALT/SGPT) 6, Alkaline Phosphatase 39L, Total Protein 6.0L, Albumin 3.1L Laboratory Tests 08/17/20 07:23 08/18/20 02:40 A/P: Assessment: S/p ICE CRUSHER-D on 08/17/[address] Healy Post-op anemia on 08/18/20, probably due to some periprocedural blood loss Chronic systolic CHF - clinically compensated CKD 4 - follows with nephrology services (Dr. 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 Global hypokinesis, more marked at the septum. Grade 1 diastolic dysfunction. Mod MR. Mod to severe AoR. RVSP 23 mmHg. Some pleural effusion seen. Most recent echo of August 02, 2020 showed LVEF 20-25%. Mod MR and AoR. PASP approx 40mmHg. Some pleural effusion present. MPI of April 2017: basal inferior infarction with minimal viji-infarct ischemia. Global hypokinesis of the LV, somewhat more prominent at basal inferior wall. LVEF 38%. MICHAELA of September 15, 2018 - no evidence of endocarditis, LVEF 45%, mild MR and AoR MRSA UTI in Jul 2018 (treated by Dr Rick) HTN HLP Carotid u/s of Sep 27, 2019 and March 2020 showed less than 40% LICA, 60-79% JESSE MARILIN and ARB contraindicated d/t associated acute on chronic renal failure with hyperkalemia in January 2017 S/p bladder sling removal at [facility] in Nov 2017 Plan: * I reviewed and discussed with her her procedure of 08/17/20 * Continue regimen for ischemic cm * To Dr Healy on Friday for wound inspection * Repeat labs as outpt WILMER MILNER MD FACP FAC CCDS Aug 18, 2020 08:21
[2020-08-18] MEDS ORDERED: SULF-11 PO (08:27)
--- NOTE | 2020-08-18 08:28 | Discharge Inst-Post Device ---
Discharge Inst-Post Device Follow up/Plan F/u for wound check at Dr Healy's office on Friday08/21/20 F/u with Dr Anthony in two weeks Heart Healthy Diet Do not lift arm on side of device placement above head for 4 weeks. Do not push and pull heavy objects for 4 weeks. Activity as tolerated. No driving for one week. Leave dressing on until follow up at the office. WILMER ANTHONY MD FACP FAC CCDS Aug 18, 2020 08:28
--- NOTE | 2020-08-18 08:30 | Cardiology Discharge Summary ---
Diagnosis/Chief Complaint Date of Admission 08/17/20 Date of Discharge 08/18/20 Final/Discharge Diagnosis S/p PECAN MALLOW DIPPER-D on 08/17/[address] Healy Post-op anemia on 08/18/20, probably due to some periprocedural blood loss Chronic systolic CHF - clinically compensated CKD 4 - follows with nephrology services (Dr. Rick) Card cath of 01/18/20: PUBLICATION MANAGER of RCA with collateralization from the L coronary system that has diffuse, moderate disease, LVEDP 18 mmHg, LV angio not done (11 ml contrast used) Ischemic CM Echocardiogram of March 29, 2020 showed LVEF 25-30%. Global hypokinesis, more marked at the septum. Grade 1 diastolic dysfunction. Mod MR. Mod to severe AoR. RVSP 23 mmHg. Some pleural effusion seen. Most recent echo of August 02, 2020 showed LVEF 20-25%. Mod MR and AoR. PASP approx 40mmHg. Some pleural effusion present. MPI of April 2017: basal inferior infarction with minimal viji-infarct ischemia. Global hypokinesis of the LV, somewhat more prominent at basal inferior wall. LVEF 38%. MICHAELA of September 15, 2018 - no evidence of endocarditis, LVEF 45%, mild MR and AoR MRSA UTI in Jul 2018 (treated by Dr Rick) HTN HLP Carotid u/s of Sep 27, 2019 and March 2020 showed less than 40% LICA, 60-79% JESSE MARILIN and ARB contraindicated d/t associated acute on chronic renal failure with hyperkalemia in January 2017 S/p bladder sling removal at [facility] in Nov 2017 Chief Complaint/HPI Chief Complaint/HPI Please see progress note of today's date for condition at discharge Discharge Summary Hospital Course Pending Labs Laboratory Tests 08/18/20 02:40: White Blood Count 5.7, Red Blood Count 2.89, Hemoglobin 8.9, Hematocrit 29, Mean Corpuscular Volume 100, Mean Corpuscular Hemoglobin 31, Mean Corpuscular H emoglobin Concent 31, Red Cell Distribution Width 12.9, Platelet Count 187, Mean Platelet Volume 10.0, Sodium Level 135, Potassium Level 5.1, Chloride Level 109, Carbon Dioxide Level 18, Anion Gap 8, Blood Urea Nitrogen 47, Creatinine 2.11, Estimat Glomerular Filtration Rate 23, BUN/Creatinine Ratio 22, Glucose Level 83, Calcium Level 8.6, Corrected Calcium 9.3, Total Bilirubin 0.3, Aspartate Amino Transf (AST/SGOT) 15, Alanine Aminotransferase (ALT/SGPT) 6, Alkaline Phosphatase 39, Total Protein 6.0, Albumin 3.1 Discussion & Recommendations Home Medications Reviewed patient Home Medication Reconciliation performed by pharmacy medication reconciliations injection mold technician and/or nursing. Patients Allergies have been reviewed. Discharge Home Medications: Reviewed and agree with Discharge Medication list on patient's Discharge Instruction sheet Instructions to patient/family F/u for wound check at Dr Healy's office on Friday08/21/20 F/u with Dr Anthony in two weeks WILMER ANTHONY MD FACP FAC CCDS Aug 18, 2020 08:30
[2020-08-18] MEDS ORDERED: VANCOMYCIN INJECTION 1,000 MG in NS (IVPB) 250 ML IV SCH (09:00)
== END 2020-08-18 10:35 | disposition home or self-care (01) ==
LOC: CATH 06:57 → CSD 13:04 → CATH 08-18 10:35
PROVIDERS: ATTEND Internal Medicine Interventional Cardiology
DX: I13.0 Hypertensive heart and chronic kidney disease with heart failure and stage 1 through stage 4 chronic kidney disease, or unspecified chronic kidney disease (principal); I50.22 Chronic systolic (congestive) heart failure; N18.4 Chronic kidney disease, stage 4 (severe); D63.1 Anemia in chronic kidney disease; I25.82 Chronic total occlusion of coronary artery; I08.0 Rheumatic disorders of both mitral and aortic valves; J90 Pleural effusion, not elsewhere classified; E78.5 Hyperlipidemia, unspecified; N17.9 Acute kidney failure, unspecified; K21.9 Gastro-esophageal reflux disease without esophagitis; Z79.899 Other long term (current) drug therapy; Z79.82 Long term (current) use of aspirin; Z88.0 Allergy status to penicillin; Z88.8 Allergy status to other drugs, medicaments and biological substances; Z90.710 Acquired absence of both cervix and uterus; Z87.891 Personal history of nicotine dependence; Z80.41 Family history of malignant neoplasm of ovary
CPT/HCPCS: 33225; 33249; 71045; 80053 ×2; 85027 ×2; 85610; 85730; 87081; 93005; 93641; C1769 ×2; C1777; C1882; C1898; C1900; 36415

== ENCOUNTER 2020-10-02 15:33 | Inpatient (IN) | payer MEDICARE, OTHER ==
[~2020-10-02] VITALS: Ht 170.1 cm; Wt 73.4 kg
[~2020-10-02 15:33] MED LIST changes: +AMLO-250 PO; +AMLO-251 PO; -AMLO10TA7 PO; -AMLO5TAB9 PO; +FURO40TA4 PO; +SULF-11 PO
--- NOTE | 2020-10-02 15:40 | ED Cardiac General ---
History of Present Illness General Stated Complaint: IRREGULAR PULSE Source: patient Exam Limitations: no limitations History of Present Illness Date Seen by Provider: Oct 02, 2020 Time Seen by Provider: 15:40 Initial Comments 79-year-old female sent in due to irregular pulse. Patient from the skilled nursing and states they noticed a couple hours ago. Patient's only complaint is that her heart is beating really fast. She does seem to have some mild shortness of breath with it. She has no known history of atrial fib. She does have a pacemaker. No reports of fevers chills chest pain or other systemic complaints. Allergies and Home Medications Allergies Coded Allergies: Penicillins (Verified Allergy, Unknown, Pt has rec Rocephin & Ancef in the past, 08/18/20) verapamil (Verified Allergy, Unknown, 12/31/18) Home Medications Acetaminophen 650 Mg Tablet.er, 1,300 MG PO Q8H PRN for PAIN-MILD, (Reported) TAKES 2 (650MG) TABLETS Amlodipine Besylate 5 Mg Tablet, 5 MG PO DAILY, (Reported) Calcitriol 0.25 Mcg Capsule, 0.25 MG PO DAILY, (Reported) Furosemide 40 Mg Tablet, 40 MG PO EVERY OTHER DAY, (Reported) Mirabegron 50 Mg Tab.er.24h, 50 MG PO DAILY, (Reported) Nebivolol HCl 10 Mg Tab, 10 MG PO DAILY, (Reported) Nitroglycerin 0.4 Mg Tab.subl, 0 MG SL UD PRN for CHEST PAIN (ANGINA) Prescribed by: MIKAYLA PABLO on 01/24/20 0937 Omeprazole 40 Mg Capsule.dr, 40 MG PO DAILY, (Reported) Simvastatin 20 Mg Tablet, 20 MG PO EVENING, (Reported) Sodium Bicarbonate 650 Mg Tablet, 1,300 MG PO BID, (Reported) Sulfamethoxazole/Trimethoprim 1 Each Tablet, 1 EACH PO BID Prescribed by: WILMER MILNER on 08/18/20 0839 Patient Home Medication List Home Medication List Reviewed: Yes Review of Systems Review of Systems Constitutional: No chills, No fever Respiratory: Denies Cough, Denies Shortness of Air Cardiovascular: See HPI Gastrointestinal: No Symptoms Reported Genitourinary: No Symptoms Reported Musculoskeletal: no symptoms reported Skin: no symptoms reported Psychiatric/Neurological: No Symptoms Reported Past Mzbbowe-Zbbxlt-Jhinvv Hx Past Med/Social Hx: Reviewed Nursing Past Med/Soc Hx Patient Social History Type Used: Cigarettes Former Smoker, Quit: Jan 04, 1998 2nd Hand Smoke Exposure: No Recent Foreign Travel: No Contact w/Someone Who Travel: No Recent Hopitalizations: Yes (PACEMAKER PLACEMENT) Immunizations Up To Date Tetanus Booster (TDap): Unknown Date of Pneumonia Vaccine: Jul 19, 2013 Date of Influenza Vaccine: Sep 08, 2019 Seasonal Allergies Seasonal Allergies: Yes Past Medical History Surgeries: Yes (COLONOSCOPIES/POLYPECTOMY;HYST/[id number];BLADDER SLING 2015/REMOVED 2016;CATH) Bladder Surgery, Cardiac, Eye Surgery, Hysterectomy, Oophorectomy, Tonsillectomy Respiratory: No Currently Using CPAP: No Currently Using BIPAP: No Cardiac: Yes (CHF WITH EF OF 30-35%;MITRAL & AORTIC REGURGITATION;NSTEMI 01/16/20) Coronary Artery Disease, Heart Attack, Hypertension, Valvular Heart Disease Neurological: No Reproductive Disorders: Yes (GENITAL PROLAPSE) 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 ) Colitis, Gastroesophageal Reflux, Polyps Musculoskeletal: Yes Arthritis, Chronic Back Pain Endocrine: No HEENT: No Loss of Vision: Bilateral Hearing Impairment: Denies Cancer: Yes (PRE-CANCEROUS UTERUS) Did You Recieve Any Treatments: Yes What Type of Treatment Did You: Surgical Intervention Psychosocial: No Integumentary: No Blood Disorders: No Adverse Reaction/Blood Tranf: No (N/A) Family Medical History Cardiovascular disease 19 MOTHER 19 MOTHER (heart problems) Cardiovascular disease 19 MOTHER 19 MOTHER (heart problems) Hypertension 19 FATHER 19 MOTHER Neoplasm G8 SISTER (cancer but does not know what kind) Osteoporosis G8 SISTER (polio as child) Heart Disease, Cancer, Hypertension PSH: -TONSILLECTOMY CHILD -HYST/BSO 1997 -BLADDER SLING 2015 WITH REMOVAL 2016 -COLONOSCOPIES AND COLON POLYP REMOVAL--LAST COLONOSCOPY 08/04/19 -CARDIAC CATH -01/18/20--NO INTERVENTION. TOTAL OCCLUSION OF RIGHT CORONARY ARTERY WITH COLLATERAL CIRCULATION, AND MODERATE DISEASE TO ALL OTHER VESSELS. Physical Exam Vital Signs Vital Signs - First Documented 10/02/20 15:38 Temp 36.2 Pulse 151 Resp 18 B/P (MAP) 108/66 (80) Pulse Ox 95 O2 Delivery Room Air Capillary Refill : Height, Weight, BMI Height: 5'7.50" Weight: 147lbs. 0.0oz. 66.128333ls; 18.64 BMI Method:Stated General Appearance: No Apparent Distress, WD/WN Respiratory: Lungs Clear, Decreased Breath Sounds (mild diffuse) Cardiovascular: No Edema, Irregularly Irregular Gastrointestinal: Non Tender, Soft Extremity: Normal Capillary Refill, Normal Range of Motion Neurologic/Psychiatric: Alert, Normal Mood/Affect Skin: Normal Color, Warm/Dry Progress/Results/Core Measures Results/Orders Lab Results Laboratory Tests Test 10/02/20 15:48 10/02/20 16:09 Range/Units White Blood Count 8.8 4.3-11.0 10^3/uL Red Blood Count 3.40 L 3.80-5.11 10^6/uL Hemoglobin 10.7 L 11.5-16.0 g/dL Hematocrit 37 35-52 % Mean Corpuscular Volume 108 H 80-99 fL Mean Corpuscular Hemoglobin 32 25-34 pg Mean Corpuscular Hemoglobin Concent 29 L 32-36 g/dL Red Cell Distribution Width 14.5 10.0-14.5 % Platelet Count 207 130-400 10^3/uL Mean Platelet Volume 10.1 9.0-12.2 fL Immature Granulocyte % (Auto) 1 % Neutrophils (%) (Auto) 74 42-75 % Lymphocytes (%) (Auto) 13 12-44 % Monocytes (%) (Auto) 11 0-12 % Eosinophils (%) (Auto) 1 0-10 % Basophils (%) (Auto) 1 0-10 % Neutrophils # (Auto) 6.6 1.8-7.8 10^3/uL Lymphocytes # (Auto) 1.1 1.0-4.0 10^3/uL Monocytes # (Auto) 1.0 0.0-1.0 10^3/uL Eosinophils # (Auto) 0.1 0.0-0.3 10^3/uL Basophils # (Auto) 0.0 0.0-0.1 10^3/uL Immature Granulocyte # (Auto) 0.0 0.0-0.1 10^3/uL Sodium Level 143 135-145 MMOL/L Potassium Level 4.3 3.6-5.0 MMOL/L Chloride Level 108 H 98-107 MMOL/L Carbon Dioxide Level 21 21-32 MMOL/L Anion Gap 14 5-14 MMOL/L Blood Urea Nitrogen 71 H 7-18 MG/DL Creatinine 2.28 H 0.60-1.30 MG/DL Estimat Glomerular Filtration Rate 21 BUN/Creatinine Ratio 31 Glucose Level 154 H 70-105 MG/DL Calcium Level 9.1 8.5-10.1 MG/DL Corrected Calcium 9.6 8.5-10.1 MG/DL Magnesium Level 2.3 1.6-2.4 MG/DL Total Bilirubin 0.3 0.1-1.0 MG/DL Aspartate Amino Transf (AST/SGOT) 36 H 5-34 U/L Alanine Aminotransferase (ALT/SGPT) 40 0-55 U/L Alkaline Phosphatase 77 40-136 U/L Troponin I 0.050 H <0.028 NG/ML Total Protein 6.5 6.4-8.2 GM/DL Albumin 3.4 3.2-4.5 GM/DL Prothrombin Time 14.0 12.2-14.7 SEC INR Comment 1.0 0.8-1.4 Activated Partial Thromboplast Time 27 24-35 SEC My Orders Orders - QUINONEZ,MARCELLUS L DO Cbc With Automated Diff (10/02/20 15:40) Magnesium (10/02/20 15:40) Chest 1 View, Ap/Pa Only (10/02/20 15:40) Ekg Tracing (10/02/20 15:40) Comprehensive Metabolic Panel (10/02/20 15:40) Protime With Inr (10/02/20 15:40) Partial Thromboplastin Time (10/02/20 15:40) Monitor-Rhythm Ecg Trace Only (10/02/20 15:40) Ed Iv/Invasive Line Start (10/02/20 15:40) Troponin I (10/02/20 15:40) Diltiazem Injection (Cardizem Injection) (10/02/20 15:45) Ekg Tracing (10/02/20 16:01) Diltiazem Drip Pre-Mix (Cardizem Drip Pr (10/02/20 16:45) Enoxaparin Injection (Lovenox Injection) (10/02/20 16:45) Medications Given in ED Current Medications Medications Dose Ordered Sig/Cara Route Start Time Stop Time Status Last Admin Dose Admin Diltiazem HCl 20 mg ONCE ONCE IVP 10/02/20 15:45 10/02/20 15:46 DC 10/02/20 15:53 20 MG Enoxaparin Sodium 70 mg ONCE ONCE SC 10/02/20 16:45 10/02/20 16:46 DC 10/02/20 16:57 70 MG Vital Signs/I&O 10/02/20 15:38 Temp 36.2 Pulse 151 Resp 18 B/P (MAP) 108/66 (80) Pulse Ox 95 O2 Delivery Room Air Progress Progress Note : Time: 17:44 Progress Note Patient with atrial fib RVR with paced complexes within it. Patient responded well initially to a Cardizem bolus. Her rate dropped to 95 was still having some paced complexes. Then started increasing back of another 120s and 130s. Called and discussed with Dr. Pace. We will place patient on Cardizem drip, Lovenox put her on cardiac stepdown and they will further evaluate her on the floor. We did obtain a pacemaker interrogation but did not have the results at this time Initial ECG Impression Date: Oct 02, 2020 Initial ECG Impression Time: 15:39 Initial ECG Rate: 154 Initial ECG Rhythm: A Fib/Flutter Initial ECG Impression: Atrial Fibrillation w/RVR Comment Atrial fib with paced complexes, LVH EKG : EKG Time: 15:57 Rate: 95 Rhythm: paced rhythm Comment Paced rhythm with a heart rate 95 with LVH Diagnostic Imaging Diagonstic Imaging: Xray Plain Films/CT/US/NM/MRI: chest Comments [facility] [place] NAME: HOOD HENDERSON [facility] REC#: [id number] PT STATUS: REG ER : 1940 PHYSICIAN: MARCELLUS QUINONEZ DO ADMIT DATE: 10/02/20/ER Signed Date of Exam:10/02/20 CHEST 1 VIEW, AP/PA ONLY INDICATION: Chest pain EXAM: Portable chest 4:09 PM FINDINGS: There is a dual-chamber pacemaker. There is cardiomegaly with pulmonary vascular congestion. There are bilateral pleural effusions larger on the right than the left. IMPRESSION: Congestive heart failure with bilateral pleural effusions. Dictated by: Dictated on workstation # [id number] Dict: 10/02/20 1630 Trans: 10/02/20 1636 [facility] [id number] Interpreted by: WINTER ARIZA MD Reviewed: Reviewed by Me, Reviewed/Discussed Departure Communication (Admissions) Time/Spoke to Admitting Phy: 16:50 Time/Spoke to Consulting Phy: 16:45 cardizem drip, lovenox 1mg/kg sc q12 Impression Primary Impression: Atrial fibrillation Qualified Codes: I48.91 - Unspecified atrial fibrillation Disposition: ADMITTED INPATIENT Condition: Stable/Unchanged Admissions Decision to Admit Reason: Admit from ER (General) Decision to Admit/Date: Oct 02, 2020 Time/Decision to Admit Time: 16:55 Departure-Patient Inst. Referrals: MIKAYLA PABLO MD (PCP/Family) Primary Care Physician MARCELLUS QUINONEZ DO Oct 02, 2020 15:40
--- NOTE | 2020-10-02 15:57 | NUR ---
HR RATE DOWN TO HR 89 2ND EKG DONE
[2020-10-02 15:58] LABS: BASOPHILS % (AUTO) 1 % (0-10); EOSINOPHILS # (AUTO) 0.1 10^3/uL (0.0-0.3); EOSINOPHILS % (AUTO) 1 % (0-10); HEMATOCRIT 37 % (35-52); HEMOGLOBIN 10.7 g/dL (11.5-16.0); LYMPHOCYTES # (AUTO) 1.1 10^3/uL (1.0-4.0); LYMPHOCYTES % (AUTO) 13 % (12-44); MEAN CORPUSCULAR HEMOGLOBIN 32 pg (25-34); MEAN CORPUSCULAR HGB CONC 29 g/dL (32-36); MEAN CORPUSCULAR VOLUME 108 fL (80-99); MEAN PLATELET VOLUME 10.1 fL (9.0-12.2); MONOCYTES % (AUTO) 11 % (0-12); NEUTROPHILS # (AUTO) 6.6 10^3/uL (1.8-7.8); NEUTROPHILS % (AUTO) 74 % (42-75); PLATELET COUNT 207 10^3/uL (130-400); WHITE BLOOD COUNT 8.8 10^3/uL (4.3-11.0)
--- NOTE | 2020-10-02 16:09 | NUR ---
INTERGATION OF PACEMAKER DONE.
[2020-10-02 16:13] LABS: ALBUMIN 3.4 GM/DL (3.2-4.5); POTASSIUM 4.3 MMOL/L (3.6-5.0)
[2020-10-02 16:14] LABS: CALCIUM 9.1 MG/DL (8.5-10.1)
[2020-10-02 16:16] LABS: TOTAL PROTEIN 6.5 GM/DL (6.4-8.2)
[2020-10-02 16:18] LABS: BILIRUBIN,TOTAL 0.3 MG/DL (0.1-1.0)
[2020-10-02 16:19] LABS: CREATININE SERUM 2.28 MG/DL (0.60-1.30)
[2020-10-02 16:22] LABS: MAGNESIUM 2.3 MG/DL (1.6-2.4)
--- NOTE | 2020-10-02 16:32 | Diagnostic Imaging Report ---
INDICATION: Chest pain EXAM: Portable chest 4:09 PM FINDINGS: There is a dual-chamber pacemaker. There is cardiomegaly with pulmonary vascular congestion. There are bilateral pleural effusions larger on the right than the left. IMPRESSION: Congestive heart failure with bilateral pleural effusions. Dictated by: Dictated on workstation # [id number]
[2020-10-02] MEDS ORDERED: ENOXAPARIN 80 MG/0.8 ML (LOVENOX) SYR SC ONE (16:45)
[2020-10-02] MEDS ORDERED: dilTIAZem DRIP PRE-MIX 125 ML IV SCH (16:45)
--- NOTE | 2020-10-02 17:05 | NUR ---
CALLED AND UDATE TO [facility].
--- NOTE | 2020-10-02 17:28 | NUR ---
CALLEAD TO GIVE REPORT NURSE KIA WILL CALL [facility].
--- NOTE | 2020-10-02 18:05 | NUR ---
KEMI FREIRE CALLED AND STATED INTERGATION OF PACEMAKER WAS A FIB NO SHOCKS.
--- NOTE | 2020-10-02 18:12 | NUR ---
KEMI FREIRE REPORT SENT WITH PATIENT.
--- NOTE | 2020-10-02 18:29 | NUR ---
HOOD HENDERSON Olu admitted to room CU8-1, with an admitting diagnosis of AFIB WITH RVR, on 10/02/20 from [place] via [facility], accompanied by STAFF.HOOD HENDERSON introduced to surroundings, call light, bed controls, phone, TV, temperature control, lights, meal times, smoking policy, visitor policy, side rail policy, bathrooms and showers. Patient Rights given to patient in the handbook. HOOD HENDERSON verbalizes understanding that [facility] is not responsible for the loss or damage to any personal effects or valuables that are kept in the patients posession during their hospitalization. The following Patient Care Plans were discussed with the PT: Discharge Planning. HOOD HENDERSON verbalizes understanding of Interdisciplinary Patient Education. Patient and/or family were informed about the Rapid Response Team and its purpose.
[2020-10-02] MEDS ORDERED: dilTIAZem DRIP 125 MG/125 ML DRIP IV SCH (18:45)
[2020-10-02] MEDS ORDERED: CATHETER FLUSH 10 ML SYR IV PRN (18:45)
[2020-10-02] MEDS ORDERED: LORA10TA76 PO (18:49)
[2020-10-02] MEDS ORDERED: OMG1KC PO (18:49)
[2020-10-02] MEDS ORDERED: MELA1TAB20 PO (18:49)
[2020-10-02] MEDS: CATHETER FLUSH 10 ML SYR IV SCH (20:02)
[2020-10-02] MEDS: inSUlin ASPART (NovoLOG) 1 UNIT/0.01 ML (CHARGE PER UNIT) SC SCH (20:02)
[2020-10-03 03:38] LABS: BASOPHILS % (AUTO) 0 % (0-10); EOSINOPHILS % (AUTO) 0 % (0-10); HEMATOCRIT 34 % (35-52); LYMPHOCYTES # (AUTO) 0.9 10^3/uL (1.0-4.0); LYMPHOCYTES % (AUTO) 14 % (12-44); MEAN CORPUSCULAR HEMOGLOBIN 31 pg (25-34); MEAN CORPUSCULAR HGB CONC 29 g/dL (32-36); MEAN CORPUSCULAR VOLUME 105 fL (80-99); MEAN PLATELET VOLUME 9.9 fL (9.0-12.2); MONOCYTES # (AUTO) 0.7 10^3/uL (0.0-1.0); MONOCYTES % (AUTO) 11 % (0-12); NEUTROPHILS # (AUTO) 4.8 10^3/uL (1.8-7.8); NEUTROPHILS % (AUTO) 74 % (42-75); PLATELET COUNT 173 10^3/uL (130-400); WHITE BLOOD COUNT 6.5 10^3/uL (4.3-11.0)
[2020-10-03 03:45] LABS: ALBUMIN 3.2 GM/DL (3.2-4.5)
[2020-10-03 03:46] LABS: POTASSIUM 4.4 MMOL/L (3.6-5.0)
[2020-10-03 03:48] LABS: TOTAL PROTEIN 5.9 GM/DL (6.4-8.2)
[2020-10-03 03:50] LABS: BILIRUBIN,TOTAL 0.3 MG/DL (0.1-1.0)
[2020-10-03 03:52] LABS: CREATININE SERUM 2.27 MG/DL (0.60-1.30)
[2020-10-03 03:55] LABS: MAGNESIUM 2.3 MG/DL (1.6-2.4)
[2020-10-03] MEDS: inSUlin ASPART (NovoLOG) 1 UNIT/0.01 ML (CHARGE PER UNIT) SC SCH (05:27)
[2020-10-03] MEDS: CATHETER FLUSH 10 ML SYR IV SCH ×3 (05:27→21:40)
[2020-10-03] MEDS ORDERED: POTASSIUM CL 10MEQ/50ML IVPB 50 ML IV SCH (06:00)
[2020-10-03] MEDS ORDERED: MAGNESIUM 1 GM/100 ML IVPB 100 ML IV SCH (06:00)
[2020-10-03] MEDS ORDERED: KCL 20 MEQ TAB (K-DUR) PO SCH (06:00)
[2020-10-03] MEDS ORDERED: OMEG-91 PO (08:32)
[2020-10-03] MEDS ORDERED: PYRI100T10 PO (08:32)
[2020-10-03] MEDS ORDERED: NITR0.4T39 SL (08:32)
[2020-10-03] MEDS ORDERED: MELA10TA2 PO (08:32)
[2020-10-03] MEDS ORDERED: CYAN-41 PO (08:32)
--- NOTE | 2020-10-03 08:34 | NUR ---
MED REC WAS ENTERED USING THE PHYSICIAN ORDER FROM [facility]
--- NOTE | 2020-10-03 08:51 | History & Physical ---
History of Present Illness History of Present Illness Reason for visit/HPI PT IS A 79 Y/O FEMALE WHO IS KNOWN TO ME FROM CLINIC AND PREVIOUS HOSPITALIZATION. SHE PRESENTED TO THE HOSPITAL FOR RAPID HEART RATE, FOUND TO BE IN AFIB IN THE EMERGENCY DEPARTMENT. SHE WAS TRANSFERRED UP TO THE ICU WHERE SHE CONVERTED ON HER OWN. Date of Admission Oct 02, 2020 at 17:00 Date Seen by a Provider: Oct 03, 2020 Time Seen by a Provider: 08:45 I consulted on this patient on 10/03/20 08:51 Attending Physician Emily Tay MD Admitting Physician Emily Tay MD Consult Allergies and Home Medications Allergies Coded Allergies: Penicillins (Verified Allergy, Unknown, Pt has rec Rocephin & Ancef in the past, 08/18/20) verapamil (Verified Allergy, Unknown, 12/31/18) Home Medications Acetaminophen 650 Mg Tablet.er, 1,300 MG PO Q8H PRN for PAIN-MILD, (Reported) TAKES 2 (650MG) TABLETS Amlodipine Besylate 5 Mg Tablet, 5 MG PO DAILY, (Reported) HOLD FOR SBP LESS THAN 120 Calcitriol 0.25 Mcg Capsule, 0.25 MG PO DAILY, (Reported) Cyanocobalamin (Vitamin B-12) 1,000 Mcg Tablet, 1,000 MCG PO DAILY, (Reported) Furosemide 40 Mg Tablet, 40 MG PO Q48H, (Reported) Loratadine 10 Mg Tablet, 10 MG PO DAILY, (Reported) Melatonin 10 Mg Tablet, 10 MG PO HS, (Reported) Mirabegron 50 Mg Tab.er.24h, 50 MG PO DAILY, (Reported) Nebivolol HCl 10 Mg Tab, 10 MG PO DAILY, (Reported) Nitroglycerin 0.4 Mg Tab.subl, 0.4 MG SL UD PRN for CHEST PAIN, (Reported) [place]-3/Dha/Epa/Dpa/Fish Oil 1 Each Capsule, 1 EACH PO DAILY, (Reported) Omeprazole 40 Mg Capsule.dr, 40 MG PO DAILY, (Reported) Pyridoxine HCl 100 Mg Tablet, 100 MG PO DAILY, (Reported) Simvastatin 20 Mg Tablet, 20 MG PO EVENING, (Reported) Sodium Bicarbonate 650 Mg Tablet, 1,300 MG PO BID, (Reported) TAKES 2 (650MG) TABS Patient Home Medication List Home Medication List Reviewed: Yes Past Pgzrdxp-Qmhtvs-Gjikry Hx Past Med/Social Hx: Reviewed Nursing Past Med/Soc Hx Patient Social History Marrital Status: Living Status: L[facility]ING AT [facility] Employed/Student: retired Alcohol Use: Denies Use Recreational Drug Use: No Former Smoker, Quit: Jan 04, 1998 Type Used: Cigarettes 2nd Hand Smoke Exposure: No Physical Abuse Screen: No Sexual Abuse: No Recent Foreign Travel: No Contact w/other who traveled: No Recent Hopitalizations: Yes (PACEMAKER PLACEMENT) Recent Infectious Disease Expo: No Immunizations Up To Date Tetanus Booster (TDap): Unknown Date of Pneumonia Vaccine: Jul 19, 2013 Date of Influenza Vaccine: Sep 08, 2020 Seasonal Allergies Seasonal Allergies: Yes Past Medical History Surgeries: Bladder Surgery, Cardiac, Eye Surgery, Hysterectomy, Oophorectomy, Tonsillectomy Currently Using CPAP: No Currently Using BIPAP: No Cardiac: Coronary Artery Disease, Heart Attack, Hypertension, Valvular Heart Disease : No Reproductive: Yes (GENITAL PROLAPSE) Sexually Transmitted Disease: No HIV/AIDS: No Menopausal Genitourinary: Renal Failure, UTI-Chronic Gastrointestinal: Colitis, Gastroesophageal Reflux, Polyps Musculoskeletal: Arthritis, Chronic Back Pain Loss of Vision: Bilateral Hearing Impairment: Denies Did You Recieve Any Treatments: Yes What Type of Treatment Did You: Surgical Intervention History of Blood Disorders: No Adverse Reaction to Blood [place]: No (N/A) Family History Reviewed Nursing Family Hx Cardiovascular disease 19 MOTHER 19 MOTHER (heart problems) Cardiovascular disease 19 MOTHER 19 MOTHER (heart problems) Hypertension 19 FATHER 19 MOTHER Neoplasm G8 SISTER (cancer but does not know what kind) Osteoporosis G8 SISTER (polio as child) Heart Disease, Cancer, Hypertension PSH: -TONSILLECTOMY CHILD -HYST/BSO 1997 -BLADDER SLING 2016 WITH REMOVAL 2017 -COLONOSCOPIES AND COLON POLYP REMOVAL--LAST COLONOSCOPY 08/04/19 -CARDIAC CATH -01/18/20--NO INTERVENTION. TOTAL OCCLUSION OF RIGHT CORONARY ARTERY WITH COLLATERAL CIRCULATION, AND MODERATE DISEASE TO ALL OTHER VESSELS. Review of Systems Constitutional: No chills, No fever; malaise EENTM: No hoarseness, No throat pain Respiratory: No cough; short of breath Cardiovascular: No chest pain, No edema; Hx of Intervention, vascular heart diseas Gastrointestinal: No abdominal pain, No constipation, No diarrhea, No nausea, No vomiting Genitourinary: other (GARCES IN PLACE) Musculoskeletal: muscle weakness Skin: no symptoms reported Psychiatric/Neurological: Denies Anxiety; Weakness All Other Systems Reviewed Negative Unless Noted: Yes Physical Exam Vital Signs Vital Signs - First Documented 10/02/20 15:38 Temp 36.2 Pulse 151 Resp 18 B/P (MAP) 108/66 (80) Pulse Ox 95 O2 Delivery Room Air Capillary Refill : Less Than 3 Seconds Height, Weight, BMI Height: 5'7.50" Weight: 147lbs. 0.0oz. 66.136162pk; 23.00 BMI Method:Stated General Appearance: No Apparent Distress, WD/WN Eyes: Bilateral Eye Normal Inspection, Bilateral Eye PERRL, Bilateral Eye EOMI HEENT: PERRL/EOMI, Pharynx Normal Neck: Full Range of Motion, Normal Inspection, Non Tender, Supple Respiratory: Chest Non Tender, Lungs Clear, Normal Breath Sounds, No Accessory Muscle Use, No Respiratory Distress Cardiovascular: Systolic Murmur, Irregularly Irregular Gastrointestinal: Normal Bowel Sounds, No Organomegaly, No Pulsatile Mass, Non Tender, Soft Rectal: Deferred Extremity: Normal Capillary Refill, Normal Inspection, Normal Range of Motion, Non Tender, No Calf Tenderness, No Pedal Edema Neurologic/Psychiatric: Alert, Oriented x3, 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 Norm as Tested, Other (GROGGY - AWAKENED FROM SLEEP) Skin: Normal Color, Warm/Dry Lymphatic: No Adenopathy Assessment/Plan Assessment and Plan ACUTE ONSET ATRIAL FIBRILLATION WITH RVR ACUTE ON CHRONIC STAGE 4 RENAL FAILURE ANEMIA OF CHRONIC DISEASE CONFUSION HYPERTENSION ESOPHAGEAL REFLUX HYPERLIPIDEMIA CHRONIC SYSTOLIC CONGESTIVE HEART FAILURE CORONARY ARTERY DISEASE WITH RCA OCCLUSION WITH COLLATERALIZATION FROM LEFT CORONARY SYSTEM (CATH 01/2020) ISCHEMIC CARDIOMYOPATHY ACUTE ONSET ATRIAL FIBRILLATION WITH RVR - RATE IMPROVED ON CARDIZEM DRIP, DEFER TO CARDIOLOGY ACUTE ON CHRONIC STAGE 4 RENAL FAILURE - PT INTOLERANT OF MARILIN/ARB DUE TO HYPERKALEMIA IN RESPONSE TO MARILIN CHALLENGE IN 2017 - DEFER TO [facility] OPERATOR OUTPATIENT. - RENAL ADJUSTMENT OF MEDICATIONS - CAREFUL CONSIDERATION OF ANY DIURESIS SHOULD THAT APPEAR NECESSARY ANEMIA OF CHRONIC DISEASE - MULTIFACTORIAL - RENAL IMPAIRMENT FOREMOST ON LIST OF REASONS FOR HER ANEMIA - SUPPORTIVE CARE AT THIS TIME, CAN LOOK INTO IRON STORES SHOULD THAT APPEAR TO BE NECESSARY DURING THIS HOSPITALIZATION. CONFUSION - SUPPORTIVE CARE, MONITOR FOR DELIRIUM HYPERTENSION - RESTARTED A FEW ANTIHYPERTENSIVE AGENTS, WILL DEPEND ON HER RESPONSE TO IV MEDICATIONS AND FURTHER BP READINGS. 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 DVT PROPHYLAXIS WITH TREATMENT OF AFIB (LOVENOX, LIKELY TRANSITION TO ORAL NOAC) GI PROPHYLAXIS WITH H2 ANATOLIY Admission Diagnosis ACUTE ONSET ATRIAL FIBRILLATION WITH RVR ACUTE ON CHRONIC STAGE 4 RENAL FAILURE ANEMIA OF CHRONIC DISEASE CONFUSION HYPERTENSION ESOPHAGEAL REFLUX HYPERLIPIDEMIA CHRONIC SYSTOLIC CONGESTIVE HEART FAILURE CORONARY ARTERY DISEASE WITH RCA OCCLUSION WITH COLLATERALIZATION FROM LEFT CORONARY SYSTEM (CATH 01/2020) ISCHEMIC CARDIOMYOPATHY Admission Status: Inpatient Order (span 2 midnights) Reason for Inpatient Admission: INPT ADMISSION FOR AFIB, CHEST PAIN, CONFUSION, ACUTE ON CHRONIC RENAL FAILURE - WILL REQUIRE 72+ HOURS FOR STABILIZATION AND MEDICATION CHANGES Clinical Quality Measures DVT/VTE Risk/Contraindication: Risk Factor Score Per Nursin RFS Level Per Nursing on Admit: 4+=Very High EMILY TAY MD Oct 03, 2020 08:51
[2020-10-03] MEDS ORDERED: FAMOTIDINE 20 MG (PEPCID) TABLET PO SCH (09:00)
[2020-10-03] MEDS ORDERED: FAMOTIDINE 20 MG (PEPCID) TABLET ONE (09:15)
[2020-10-03] MEDS ORDERED: NITROGLYCERIN 0.4 MG SL TABS BTL 25'S SL PRN (09:45)
[2020-10-03] MEDS: PANTOPRAZOLE 20 MG TABLET (PROTONIX) PO SCH ×2 (09:45→21:39)
[2020-10-03] MEDS ORDERED: ACETAMINOPHEN 500 MG TAB (TYLENOL) PO PRN (09:45)
[2020-10-03 11:00] VITALS: BP_SYST 114; BP_SYST 120; BP_DIAS 68; BP_DIAS 75
--- NOTE | 2020-10-03 11:32 | NUR ---
CM/SS: Visit with pt as to her current status and her plan for discharge Plan: Undetermined at this time. Pt is from [facility] - and will likely return there when she is deemed appropriate. Summary: Pt is known to this worker based on previous hospital stays. Pt reports she is not sure if she feels better at this time - Pt reports having issues with her heart. She shares it felt as if it were going to pound out of her chest. Pt reports she is living at [facility] and that she will return there. [facility] staff have reached out to this worker to check the pt's status, and anticipated date of discharge. Pt reports he aunt is doing ok and ask when she will be able to return home. Pt is encouraged to feel better and to rest. This worker will follow up.
[2020-10-03] MEDS ORDERED: PHARMACY TO DOSE IM SCH (13:15)
[2020-10-03] MEDS ORDERED: dilTIAZem120 MG (CARDIZEM CD) CAP PO NR (13:15)
--- NOTE | 2020-10-03 13:58 | Consultation-Cardiology ---
HPI-Cardiology Cardiology Consultation: Date of Consultation 10/03/20 Date of Admission Attending Physician Emily Tay MD Admitting Physician Emily Tay MD Consulting Physician Ky HEALY MD HPI: Time Seen by a Provider: 12:45 Chief Complaint: Palpitations There is a 79-year-old lady with no previous cardiac history. She presented with palpitations. Mild shortness of breath. Denies active smoking. Pertinent family history is negative. History of permanent pacemaker. Review of Systems-Cardiology Review of Systems Constitutional: As described under HPI; No As described under HPI, No no symptoms reported, No chills, No fever, No lightheadedness Eyes: No As described under HPI, No no symptoms reported, No blindness, No blurred vision, No contact lenses, No drainage, No decreased acuity, No foreign body sensation, No pain, No vision change Ears/Nose/Throat: No As described under HPI, No no symptoms reported, No chronic hearing loss, No ear discharge, No ear pain, No nasal drainage, No ulcerations Respiratory: No no symptoms reported; As described under HPI; No As described under HPI, No cough, No orthopnea, No shortness of breath, No SOB with excertion Cardiovascular: No no symptoms reported; As described under HPI; No As described under HPI, No chest pain, No edema, No irregular heart rate, No lightheadedness; palpitations Gastrointestinal: No no symptoms reported, No As described under HPI, No abdomen distended, No abdominal pain, No blood streaked bowels, No constipation, No diarrhea, No nausea, No vomiting, No stool coloration changes Genitourinary: No As described under HPI, No burning, No dysuria, No discharge, No frequency, No flank pain, No hematuria, No urgency : Yes : No Skin: No rash, No skin related problems, No ulcerations Psychiatric/Neurological: No anxiety, No depression, No seizure, No focal weakness, No syncope Hematologic: No bleeding abnormalities [id number] Hx Patient Social History Alcohol Use: Denies Use Recreational Drug Use: No Type Used: Cigarettes 2nd Hand Smoke Exposure: No Recent Foreign Travel: No Recent Infectious Disease Expo: No Hospitalization with Isolation: Denies Immunizations Up To Date Tetanus Booster (TDap): Unknown Date of Pneumonia Vaccine: Jul 19, 2013 Date of Influenza Vaccine: Sep 08, 2020 Past Medical History PMH As described under Assessment. Family Medical History Family Medical History: She reports her mother had a heart attack in her older years. No reported h/o premature CAD or SCD. Family History: Cardiovascular disease 19 MOTHER 19 MOTHER (heart problems) Cardiovascular disease 19 MOTHER 19 MOTHER (heart problems) Hypertension 19 FATHER 19 MOTHER Neoplasm G8 SISTER (cancer but does not know what kind) Osteoporosis G8 SISTER (polio as child) Allergies and Home Medications Allergies Coded Allergies: Penicillins (Verified Allergy, Unknown, Pt has rec Rocephin & Ancef in the past, 08/18/20) verapamil (Verified Allergy, Unknown, 12/31/18) Home Medications Acetaminophen 650 Mg Tablet.er, 1,300 MG PO Q8H PRN for PAIN-MILD, (Reported) TAKES 2 (650MG) TABLETS Amlodipine Besylate 5 Mg Tablet, 5 MG PO DAILY, (Reported) HOLD FOR SBP LESS THAN 120 Calcitriol 0.25 Mcg Capsule, 0.25 MG PO DAILY, (Reported) Cyanocobalamin (Vitamin B-12) 1,000 Mcg Tablet, 1,000 MCG PO DAILY, (Reported) Furosemide 40 Mg Tablet, 40 MG PO Q48H, (Reported) Loratadine 10 Mg Tablet, 10 MG PO DAILY, (Reported) Melatonin 10 Mg Tablet, 10 MG PO HS, (Reported) Mirabegron 50 Mg Tab.er.24h, 50 MG PO DAILY, (Reported) Nebivolol HCl 10 Mg Tab, 10 MG PO DAILY, (Reported) Nitroglycerin 0.4 Mg Tab.subl, 0.4 MG SL UD PRN for CHEST PAIN, (Reported) Craig-3/Dha/Epa/Dpa/Fish Oil 1 Each Capsule, 1 EACH PO DAILY, (Reported) Omeprazole 40 Mg Capsule.dr, 40 MG PO DAILY, (Reported) Pyridoxine HCl 100 Mg Tablet, 100 MG PO DAILY, (Reported) Simvastatin 20 Mg Tablet, 20 MG PO EVENING, (Reported) Sodium Bicarbonate 650 Mg Tablet, 1,300 MG PO BID, (Reported) TAKES 2 (650MG) TABS Patient Home Medication List Home Medication List Reviewed: Yes Physical Exam-Cardiology Physical Exam Vital Signs/I&O 10/03/20 10/03/20 10/03/20 10/03/20 04:00 04:26 04:26 05:00 Temp 36.9 Pulse 79 80 Resp 22 19 B/P (MAP) 129/75 130/70 Pulse Ox 94 96 94 O2 Delivery Room Air Room Air Room Air Room Air 10/03/20 10/03/20 10/03/20 10/03/20 06:00 07:00 07:50 07:56 Temp 36.6 Pulse 82 93 82 Resp 18 35 B/P (MAP) 122/72 131/74 Pulse Ox 98 100 O2 Delivery Room Air Nasal Cannula O2 Flow Rate 1.50 10/03/20 10/03/20 10/03/20 10/03/20 08:00 08:00 09:00 09:49 Pulse 80 86 Resp 24 29 B/P (MAP) 125/103 125/115 Pulse Ox 97 99 99 O2 Delivery Nasal Cannula Nasal Cannula Nasal Cannula Nasal Cannula O2 Flow Rate 1.50 1.50 1.50 1.50 10/03/20 10/03/20 10:00 12:20 Pulse 88 90 Resp 25 B/P (MAP) 132/73 Pulse Ox 100 O2 Delivery Nasal Cannula O2 Flow Rate 1.50 10/02/20 23:59 Intake Total 175 ml Output Total 125 ml Balance 50 ml Capillary Refill : Less Than 3 Seconds Constitutional: appears stated age, AAO x 3; No apparent distress; well- developed, well-nourished HEENT: PERRL; No discharge; hearing is well preserved, oral hygience is good; No ulceration, No xanthelasmas are seen Neck: No carotid bruit; carotid pulses are 2 + bilaterally Respiratory: chest is bilaterally symmetric, lungs clear to auscultation Cardiovascular: regular rate-rhythm, S1 and S2 Gastrointestinal: soft, audible bowel sounds; No spleenomegaly Rectal: deferred Extremities: normal range of motion, non-tender, normal inspection; No clubbing, No cyanosis, No significant edema Neurologic/Psychiatric: no motor/sensory deficits, alert, normal mood/affect, oriented x 3, power is 5/5 both on sides Skin: No rash, No ulcerations Data Review Labs Laboratory Tests 10/02/20 16:09: Prothrombin Time 14.0, INR Comment 1.0, Activated Partial Thromboplast Time 27 10/02/20 19:59: Glucometer 130H 10/03/20 03:20: White Blood Count 6.5, Red Blood Count 3.25L, Hemoglobin 10.0L, Hematocrit 34L, Mean Corpuscular Volume 105H, Mean Corpuscular Hemoglobin 31, Mean Corpuscular Hemoglobin Concent 29L, Red Cell Distribution Width 14.4, Platelet Count 173, Mean Platelet Volume 9.9, Immature Granulocyte % (Auto) 1, Neutrophils (%) (Auto) 74, Lymphocytes (%) (Auto) 14, Monocytes (%) (Auto) 11, Eosinophils (%) (Auto) 0, Basophils (%) (Auto) 0, Neutrophils # (Auto) 4.8, Lymphocytes # (Auto) 0.9L, Monocytes # (Auto) 0.7, Eosinophils # (Auto) 0.0, Basophils # (Auto) 0.0, Immature Granulocyte # (Auto) 0.0, Sodium Level 143, Potassium Level 4.4, Chloride Level 107, Carbon Dioxide Level 23, Anion Gap 13, Blood Urea Nitrogen 72H, Creatinine 2.27H, Estimat Glomerular Filtration Rate 21, BUN/Creatinine Ratio 32, Glucose Level 129H, Calcium Level 9.0, Corrected Calcium 9.6, Phosphorus Level 5.0H, Magnesium Level 2.3, Total Bilirubin 0.3, Aspartate Amino Transf (AST/SGOT) 38H, Alanine Aminotransferase (ALT/SGPT) 42, Alkaline Phosphatase 71, Total Protein 5.9L, Albumin 3.2 ECG Impression ECG Initial ECG Impression: Atrial Fibrillation w/RVR A/P-Cardiology Assessment/Admission Diagnosis Atrial fibrillation with rapid ventricular rate, currently sinus rhythm, Permanent pacemaker, Hypertension Plan Patient does not have any history of falls or active bleeding. I discussed at length with the patient and recommended oral anticoagulation. CHADVASC score is 4 for age over 75, hypertension, female gender. Start Cardizem and Eliquis. Dual-chamber permanent pacemaker. Currently a sensed V paced rhythm. Hypertension, continue outpatient medical therapy. Thank you for your consultation. Please call me if you have any questions. Kathie Healy MD, FACP, FACC, FSCAI, FHRS, CCDS Interventional Cardiology Cardiac Electrophysiology Vascular Medicine and Endovascular Interventions Clinical Quality Measures DVT/VTE Risk/Contraindication: Risk Factor Score Per Nursin RFS Level Per Nursing on Admit: 4+=Very High Ky HEALY MD Oct 03, 2020 13:58
[2020-10-03] MEDS: FUROSEMIDE 40 MG (LASIX) TAB PO SCH (15:06)
[2020-10-03] MEDS ORDERED: ENOXAPARIN 80 MG/0.8 ML (LOVENOX) SYR SC SCH (17:00)
[2020-10-03] MEDS: APIXABAN 5 MG (ELIQUIS) TABLET PO SCH (18:32)
[2020-10-03 19:36] VITALS: BP 128/70
[2020-10-03] MEDS: SODIUM BICARBONATE 650 MG TABLET (NON-FORMULARY) PO SCH (21:37)
[2020-10-03] MEDS: SIMvastatin 20 MG (ZOCOR) TAB PO SCH (21:37)
[2020-10-03] MEDS: MELATONIN 10 MG TABLET PO SCH (21:37)
[2020-10-04] VITALS (7 sets, daily range): BP systolic 107–136; BP diastolic 59–82
[2020-10-04 00:48] LABS: BILIRUBIN,URINE NEGATIVE (NEGATIVE); CLARITY,URINE SL CLOUDY; COLOR,URINE YELLOW; GLUCOSE, URINE (UA) NEGATIVE (NEGATIVE); KETONES,URINE NEGATIVE (NEGATIVE); LEUKOCYTE ESTERASE ,URINE 3+ (NEGATIVE); NITRITE,URINE POSITIVE (NEGATIVE); PH,URINE 5.5 (5-9); PROTEIN,URINE TRACE (NEGATIVE)
[2020-10-04 01:03] LABS: BACTERIA,URINE LARGE /HPF; WBC,URINE >100 /HPF
[2020-10-04] MEDS: CATHETER FLUSH 10 ML SYR IV SCH ×3 (05:21→21:51)
[2020-10-04] MEDS: APIXABAN 5 MG (ELIQUIS) TABLET PO SCH ×2 (05:21→17:21)
[2020-10-04 05:37] LABS: HEMOGLOBIN 10.6 g/dL (11.5-16.0); MEAN PLATELET VOLUME 10.3 fL (9.0-12.2); WHITE BLOOD COUNT 6.8 10^3/uL (4.3-11.0)
[2020-10-04 05:43] LABS: ALBUMIN 3.2 GM/DL (3.2-4.5); POTASSIUM 4.4 MMOL/L (3.6-5.0)
[2020-10-04 05:45] LABS: CALCIUM 8.7 MG/DL (8.5-10.1)
[2020-10-04 05:46] LABS: TOTAL PROTEIN 6.1 GM/DL (6.4-8.2)
[2020-10-04 05:48] LABS: BILIRUBIN,TOTAL 0.4 MG/DL (0.1-1.0)
[2020-10-04 05:49] LABS: CREATININE SERUM 2.4 MG/DL (0.60-1.30)
[2020-10-04] MEDS ORDERED: dilTIAZem120 MG (CARDIZEM CD) CAP PO SCH (09:00)
[2020-10-04] MEDS ORDERED: amLODIPine 5 MG (NORVASC) TAB PO SCH (09:00)
[2020-10-04] MEDS: FAMOTIDINE 20 MG (PEPCID) TABLET PO SCH (09:17)
[2020-10-04] MEDS: LORATADINE (CLARITIN) 10 MG TAB PO SCH (09:17)
[2020-10-04] MEDS: PANTOPRAZOLE 20 MG TABLET (PROTONIX) PO SCH ×2 (09:17→21:50)
[2020-10-04] MEDS: SODIUM BICARBONATE 650 MG TABLET (NON-FORMULARY) PO SCH ×2 (09:17→21:50)
[2020-10-04] MEDS: cefTRIAXone FOR IV USE 1,000 MG in WATER (STERILE) FOR INJECTION 10 ML IV SCH (09:17)
--- NOTE | 2020-10-04 09:31 | Progress Note ---
Subjective Subjective Date Seen by Provider: Oct 04, 2020 Time Seen by Provider: 09:00 PT CONFUSED TODAY - SHE STATES THAT SHE IS FEELING BETTER. SHE DOES NOT APPEAR TO BE TRACKING CORRECTLY. Review of Systems General: No Chills; Fatigue HEENT: No Head Aches Pulmonary: No Dyspnea, No Cough Cardiovascular: No: Chest Pain, Palpitations Gastrointestinal: No: Nausea, Abdominal Pain Genitourinary: Other (GARCES IN PLACE) Neurological: Weakness, Confusion All Other Systems Reviewed All Other Systems Reviewed: Yes Objective Exam Vital Signs Vital Signs - First Documented 10/02/20 15:38 Temp 36.2 Pulse 151 Resp 18 B/P (MAP) 108/66 (80) Pulse Ox 95 O2 Delivery Room Air Capillary Refill : Less Than 3 Seconds General Appearance: No Apparent Distress, WD/WN Eyes: Bilateral Eye Normal Inspection, Bilateral Eye PERRL, Bilateral Eye EOMI HEENT: PERRL/EOMI, Pharynx Normal Neck: Full Range of Motion, Normal Inspection, Non Tender, Supple Respiratory: Chest Non Tender, Lungs Clear, Normal Breath Sounds, No Accessory Muscle Use, No Respiratory Distress Cardiovascular: Systolic Murmur, Irregularly Irregular Gastrointestinal: Normal Bowel Sounds, No Organomegaly, No Pulsatile Mass, Non Tender, Soft Rectal: Deferred Extremity: Normal Capillary Refill, Normal Inspection, Normal Range of Motion, Non Tender, No Calf Tenderness, No Pedal Edema Neurologic/Psychiatric: Alert, Oriented x3, 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 as Tested, Other (GROGGY - AWAKENED FROM SLEEP) Skin: Normal Color, Warm/Dry Lymphatic: No Adenopathy Results Lab Laboratory Tests 10/03/20 21:44: Urine Color YELLOW, Urine Clarity SL CLOUDY, Urine pH 5.5, Urine Specific Crane 1.015L, Urine Protein TRACEH, Urine Glucose (UA) NEGATIVE, Urine Ketones NEGATIVE, Urine Nitrite POSITIVEH, Urine Bilirubin NEGATIVE, Urine Urobilinogen 0.2, Urine Leukocyte Esterase 3+H, Urine RBC (Auto) 3+H, Urine RBC 10-25H, Urine WBC >100H, Urine Squamous Epithelial Cells 2-5, Urine Crystals NONE, Urine Bacteria LARGEH, Urine Casts NONE, Urine Mucus SMALLH, Urine Culture Indicated YES 10/04/20 05:13: White Blood Count 6.8, Red Blood Count 3.42L, Hemoglobin 10.6L, Hematocrit 36, Mean Corpuscular Volume 106H, Mean Corpuscular Hemoglobin 31, Mean Corpuscular Hemoglobin Concent 29L, Red Cell Distribution Width 14.5, Platelet Count 174, Mean Platelet Volume 10.3, Sodium Level 141, Potassium Level 4.4, Chloride Level 106, Carbon Dioxide Level 22, Anion Gap 13, Blood Urea Nitrogen 73H, Creatinine 2.40H, Estimat Glomerular Filtration Rate 20, BUN/Creatinine Ratio 30, Glucose Level 110H, Calcium Level 8.7, Corrected Calcium 9.3, Total Bilirubin 0.4, Aspartate Amino Transf (AST/SGOT) 28, Alanine Aminotransferase (ALT/SGPT) 34, Alkaline Phosphatase 67, Total Protein 6.1L, Albumin 3.2 Microbiology 10/02/20 MRSA Screen - Final, Complete MRSA not isolated Assessment/Plan Assessment/Plan Admission Dx ACUTE ONSET ATRIAL FIBRILLATION WITH RVR ACUTE ON CHRONIC STAGE 4 RENAL FAILURE ANEMIA OF CHRONIC DISEASE CONFUSION HYPERTENSION ESOPHAGEAL REFLUX HYPERLIPIDEMIA CHRONIC SYSTOLIC CONGESTIVE HEART FAILURE 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 - RENAL ADJUSTMENT OF MEDICATIONS - CAREFUL CONSIDERATION OF ANY DIURESIS SHOULD THAT APPEAR NECESSARY ANEMIA OF CHRONIC DISEASE - MULTIFACTORIAL - RENAL IMPAIRMENT FOREMOST ON LIST OF REASONS FOR HER ANEMIA - SUPPORTIVE CARE AT THIS TIME, CAN LOOK INTO IRON STORES SHOULD THAT APPEAR TO BE NECESSARY DURING THIS HOSPITALIZATION. CONFUSION - SUPPORTIVE CARE, MONITOR FOR DELIRIUM HYPERTENSION - RESTARTED A FEW ANTIHYPERTENSIVE AGENTS, WILL DEPEND ON HER RESPONSE TO IV MEDICATIONS AND FURTHER BP READINGS. 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 - RENAL ADJUSTMENT OF MEDICATIONS - CAREFUL CONSIDERATION OF ANY DIURESIS SHOULD THAT APPEAR NECESSARY ANEMIA OF CHRONIC DISEASE - MULTIFACTORIAL - RENAL IMPAIRMENT FOREMOST ON LIST OF REASONS FOR HER ANE MANFRED - SUPPORTIVE CARE AT THIS TIME, CAN LOOK INTO IRON STORES SHOULD THAT APPEAR TO BE NECESSARY DURING THIS HOSPITALIZATION. CONFUSION - SUPPORTIVE CARE, MONITOR FOR DELIRIUM HYPERTENSION - RESTARTED A FEW ANTIHYPERTENSIVE AGENTS, WILL DEPEND ON HER RESPONSE TO IV MEDICATIONS AND FURTHER BP READINGS. 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 - RENAL ADJUSTMENT OF MEDICATIONS - CAREFUL CONSIDERATION OF ANY DIURESIS SHOULD THAT APPEAR NECESSARY ANEMIA OF CHRONIC DISEASE - MULTIFACTORIAL - RENAL IMPAIRMENT FOREMOST ON LIST OF REASONS FOR HER ANEMIA - SUPPORTIVE CARE AT THIS TIME, CAN LOOK INTO IRON STORES SHOULD THAT APPEAR TO BE NECESSARY DURING THIS HOSPITALIZATION. CONFUSION - SUPPORTIVE CARE, MONITOR FOR DELIRIUM HYPERTENSION - RESTARTED A FEW ANTIHYPERTENSIVE AGENTS, WILL DEPEND ON HER RESPONSE TO IV MEDICATIONS AND FURTHER BP READINGS. 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 DVT PROPHYLAXIS WITH TREATMENT OF AFIB (LOVENOX, LIKELY TRANSITION TO ORAL NOAC) GI PROPHYLAXIS WITH H2 ANATOLIY DVT/VTE Risk/Contraindication: Risk Factor Score Per Nursin RFS Level Per Nursing on Admit: 4+=Very High MIKAYLA PABLO MD Oct 04, 2020 09:31
--- NOTE | 2020-10-04 10:11 | NUR ---
RD ASSESSMENT PMHx: CAD; HTN; renal failure; chronic UTI; colitis; GERD; PT INTERACTION: Pt was awake and pleasant during nutrition assessment. Pt states current appetite is "so-so." Note avg PO intake 25% x1d, per chart review. Pt states following a low-salt diet at home, and has no general issues with chewing/swallowing food. Note pt wears dentures, but does not have them with her in the hospital. Pt states no recent issues with nausea, vomiting, constipation, or diarrhea. Note last BM was 10/03, and pt not currently on bowel regimen per chart review. Pt states unsure of recent wt changes. Note recent 33# wt gain x6w, per chart review. ABNORMAL NUTRITION-RELATED LAB VALUES LOW: Pro 6.1; HIGH: BUN 73; cr 2.40; glu 110; Est. kcal needs: 5880-0286 kcal | 25-30 kcal/kg Est. Pro needs: 56-70 g Pro | 0.8-1.0 g Pro/kg PES STATEMENT: Inadequate oral intake (NI-2.1) related to loss of appetite as evidenced by pt interview and avg PO intake of 25% x1d. 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 INTERVENTION: Continue with current diet order of DYS2 Mechanically Altered diet. Continue with current supplementation order of Ensure Clear with meals TID, for increased kcal intake. Provides 250 kcal and 8 g Pro per serving. Encouraged pt to eat when able. Will continue to follow and reassess as pt needs, intake, and status change. Dom Wyatt, MS RD LD
--- NOTE | 2020-10-04 17:18 | Cardiology Progress Note ---
Cardiology SOAP Progress Note Subjective: No acute cardiac complaints. Objective: I&O/Vital Signs Weight (Pounds): 147 Weight (Ounces): 0.0 Weight (Calculated Kilograms): 66.656271 Constitutional: appears stated age, AAO x 3; No apparent distress; well- developed, well-nourished Respiratory: chest is bilaterally symmetric, lungs clear to auscultation Cardiovascular: regular rate-rhythm, S1 and S2 Gastrointestional: soft, audible bowel sounds; No spleenomegaly Extremities: normal range of motion, non-tender, normal inspection; No clubbing, No cyanosis, No significant edema Neurologic/Psychiatric: no motor/sensory deficits, alert, normal mood/affect, oriented x 3, power is 5/5 both on sides Skin: No rash, No ulcerations Results/Procedures: Labs Microbiology 10/03/20 Urine Culture - Final, Complete Escherichia coli Escherichia coli#2 10/02/20 MRSA Screen - Final, Complete MRSA not isolated A/P: Assessment/Dx: Atrial fibrillation with rapid ventricular rate, currently sinus rhythm, Permanent pacemaker, Hypertension Plan: Patient does not have any history of falls or active bleeding. I discussed at length with the patient and recommended oral anticoagulation. CHADVASC score is 4 for age over 75, hypertension, female gender. Start Cardizem and Eliquis. 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 Hypertension, continue outpatient medical therapy. Thank you for your consultation. Please call me if you have any questions. Kathie Healy MD, FACP, FACC, FSCAI, FHRS, CCDS Interventional Cardiology Cardiac Electrophysiology Vascular Medicine and Endovascular Interventions Ky HEALY MD Oct 04, 2020 17:18
[2020-10-04] MEDS: meTOprolol TARTRATE 50 MG (LOPRESSOR) TAB PO SCH (21:49)
[2020-10-04] MEDS: MELATONIN 10 MG TABLET PO SCH (21:50)
[2020-10-04] MEDS: SIMvastatin 20 MG (ZOCOR) TAB PO SCH (21:50)
[2020-10-05] VITALS: BP 102/70
[2020-10-05 03:34] VITALS: BP 121/79
[2020-10-05] MEDS: APIXABAN 5 MG (ELIQUIS) TABLET PO SCH ×2 (05:53→17:58)
[2020-10-05] MEDS: CATHETER FLUSH 10 ML SYR IV SCH ×3 (05:53→21:27)
[2020-10-05 07:49] VITALS: BP 141/79
[2020-10-05] MEDS: cefTRIAXone FOR IV USE 1,000 MG in WATER (STERILE) FOR INJECTION 10 ML IV SCH (09:30)
[2020-10-05] MEDS: LORATADINE (CLARITIN) 10 MG TAB PO SCH (09:30)
[2020-10-05] MEDS: meTOprolol TARTRATE 50 MG (LOPRESSOR) TAB PO SCH ×2 (09:30→21:27)
[2020-10-05] MEDS: FAMOTIDINE 20 MG (PEPCID) TABLET PO SCH (09:30)
[2020-10-05] MEDS: PANTOPRAZOLE 20 MG TABLET (PROTONIX) PO SCH ×2 (09:30→21:26)
[2020-10-05] MEDS: SODIUM BICARBONATE 650 MG TABLET (NON-FORMULARY) PO SCH ×2 (09:30→21:27)
[2020-10-05 11:56] VITALS: BP 114/75
[2020-10-05 16:00] VITALS: BP 115/66
[2020-10-05] MEDS: FUROSEMIDE 40 MG (LASIX) TAB PO SCH (16:06)
--- NOTE | 2020-10-05 16:15 | NUR ---
CM/SS: Checked in with pt on today to see how she is feeling. Pt reports feeling so so. Pt is reminded when the doctor says that [facility] is ok for [place] [facility] [place] arrangements [place] be made so that she can do so. This worker will follow up. [facility] is notified that pt will not be discharging today.
--- NOTE | 2020-10-05 17:30 | Cardiology Progress Note ---
Cardiology SOAP Progress Note Subjective: No significant cardiac complaints. Objective: I&O/Vital Signs 10/05/20 10/05/20 10/05/20 10/05/20 07:06 07:49 09:00 11:56 Temp 36.0 36.0 Pulse 73 88 74 Resp 18 18 B/P (MAP) 141/79 (99) 114/75 (88) Pulse Ox 97 98 O2 Delivery Nasal Cannula Nasal Cannula Nasal Cannula O2 Flow Rate 1.00 1.50 1.00 10/05/20 10/05/20 13:00 16:00 Temp 36.1 Pulse 82 84 Resp 18 B/P (MAP) 115/66 (82) Pulse Ox 99 O2 Delivery Nasal Cannula O2 Flow Rate 1.00 10/05/20 00:00 Intake Total 1190 ml Output Total 575 ml Balance 615 ml Weight (Pounds): 147 Weight (Ounces): 0.0 Weight (Calculated Kilograms): 66.919461 Constitutional: appears stated age, AAO x 3; No apparent distress; well- developed, well-nourished Respiratory: chest is bilaterally symmetric, lungs clear to auscultation Cardiovascular: regular rate-rhythm, S1 and S2 Gastrointestional: soft, audible bowel sounds; No spleenomegaly Extremities: normal range of motion, non-tender, normal inspection; No clubbing, No cyanosis, No significant edema Neurologic/Psychiatric: no motor/sensory deficits, alert, normal mood/affect, oriented x 3, power is 5/5 both on sides Skin: No rash, No ulcerations Results/Procedures: Labs Microbiology 10/03/20 Urine Culture - Preliminary, Resulted Escherichia coli Escherichia coli#2 Susceptibility To Follow 10/02/20 MRSA Screen - Final, Complete MRSA not isolated A/P: Assessment/Dx: Atrial fibrillation with rapid ventricular rate, currently sinus rhythm, CAMPGROUND CARETAKER-D device, Severe cardiomyopathy, CKD, CAD, Hypertension Plan: Patient does not have any history of falls or active bleeding. I discussed at length with the patient and recommended oral anticoagulation. CHADVASC score is 4 for age over 75, hypertension, female gender. Start Cardizem and Eliquis. Hypertension, continue outpatient medical therapy. S/p CAMPGROUND CARETAKER-D on 08/17/20 Chronic systolic CHF - clinically compensated CKD 4 - follows with nephrology services (Dr. Rick) Card cath of 01/18/20: MAINTENANCE SHOP CLERK of RCA with collateralization from the L coronary system that has diffuse, moderate disease, LVEDP 18 mmHg, LV angio not done (11 ml contrast used) Ischemic CM Echocardiogram of March 29, 2020 showed LVEF 25-30%. Global hypokinesis, more marked at the septum. Grade 1 diastolic dysfunction. Mod MR. Mod to severe AoR. RVSP 23 mmHg. Some pleural effusion seen. Most recent echo of August 02, 2020 showed LVEF 20-25%. Mod MR and AoR. PASP approx 40mmHg. Some pleural effusion present. MPI of April 2017: basal inferior infarction with minimal viji-infarct ischemia. Global hypokinesis of the LV, somewhat more prominent at basal inferior wall. LVEF 38%. MICHAELA of September 15, 2018 - no evidence of endocarditis, LVEF 45%, mild MR and AoR MRSA UTI in Jul 2018 (treated by Dr Rick) HTN HLP Carotid u/s of Sep 27, 2019 and March 2020 showed less than 40% LICA, 60-79% JESSE MARILIN and ARB contraindicated d/t associated acute on chronic renal failure with hyperkalemia in January 2017 S/p bladder sling removal at [facility] in Nov 2017 Thank you for your consultation. Please call me if you have any questions. Kathie Healy MD, FACP, FACC, FSCAI, FHRS, CCDS Interventional Cardiology Cardiac Electrophysiology Vascular Medicine and Endovascular Interventions Ky HEALY MD Oct 05, 2020 17:30
--- NOTE | 2020-10-05 19:56 | Progress Note ---
Subjective Subjective Date Seen by Provider: Oct 05, 2020 Time Seen by Provider: 08:20 PT FEELING A LITTLE BETTER TODAY -STAFF REPORTS IMPROVEMENT IN COGNITION AND TRACKING TODAY Review of Systems General: No Chills; Fatigue Pulmonary: No Dyspnea, No Cough Gastrointestinal: No: Nausea, Abdominal Pain Neurological: Weakness; No: Confusion All Other Systems Reviewed All Other Systems Reviewed: Yes Objective Exam Vital Signs Vital Signs - First Documented 10/02/20 15:38 Temp 36.2 Pulse 151 Resp 18 B/P (MAP) 108/66 (80) Pulse Ox 95 O2 Delivery Room Air Capillary Refill : Less Than 3 SecondsGreater Than 3 Seconds General Appearance: No Apparent Distress, WD/WN Eyes: Bilateral Eye Normal Inspection, Bilateral Eye PERRL, Bilateral Eye EOMI HEENT: PERRL/EOMI, Pharynx Normal Neck: Full Range of Motion, Normal Inspection, Non Tender, Supple Respiratory: Chest Non Tender, Lungs Clear, Normal Breath Sounds, No Accessory Muscle Use, No Respiratory Distress Cardiovascular: Systolic Murmur, Irregularly Irregular Gastrointestinal: Normal Bowel Sounds, No Organomegaly, No Pulsatile Mass, Non Tender, Soft Rectal: Deferred Extremity: Normal Capillary Refill, Normal Inspection, Normal Range of Motion, Non Tender, No Calf Tenderness, No Pedal Edema Neurologic/Psychiatric: Alert, Oriented x3, poultry helper II-XII Norm as Tested, Other (GROGGY - AWAKENED FROM SLEEP) Skin: Normal Color, Warm/Dry Lymphatic: No Adenopathy Results Lab Microbiology 10/03/20 Urine Culture - Preliminary, Resulted Escherichia coli Escherichia coli#2 Susceptibility To Follow 10/02/20 MRSA Screen - Final, Complete MRSA not isolated Assessment/Plan Assessment/Plan Admission Dx ACUTE ONSET ATRIAL FIBRILLATION WITH RVR ACUTE ON CHRONIC STAGE 4 RENAL FAILURE ECOLI UTI ANEMIA OF CHRONIC DISEASE CONFUSION HYPERTENSION ESOPHAGEAL REFLUX HYPERLIPIDEMIA CHRONIC SYSTOLIC CONGESTIVE HEART 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 - PT TO FOLLOW UP WITH CARDIOLOGY IN 2 WKS FROM [place]. ACUTE ON CHRONIC STAGE 4 RENAL FAILURE - PT INTOLERANT OF MARILIN/ARB DUE TO HYPERKALEMIA IN RESPONSE TO MARILIN CHALLENGE IN 2017 - DEFER TO USER INTERFACE DESIGNER OUTPATIENT. - RENAL ADJUSTMENT OF MEDICATIONS - CAREFUL CONSIDERATION OF ANY DIURESIS SHOULD THAT APPEAR NECESSARY ECOLI URINARY TRACT INFECTION - PT ON ROCEPHIN - CONTINUE WITH TREATMENT - WAITING ON SENSITIVITY REPORT ANEMIA OF CHRONIC DISEASE - MULTIFACTORIAL - RENAL IMPAIRMENT FOREMOST ON LIST OF REASONS FOR HER ANEMIA - SUPPORTIVE CARE AT THIS TIME, CAN LOOK INTO IRON STORES SHOULD THAT APPEAR TO BE NECESSARY DURING THIS HOSPITALIZATION. CONFUSION - SUPPORTIVE CARE, MONITOR FOR DELIRIUM HYPERTENSION - RESTARTED A FEW ANTIHYPERTENSIVE AGENTS, WILL DEPEND ON HER RESPONSE TO IV MEDICATIONS AND FURTHER BP READINGS. ESOPHAGEAL REFLUX - RESTARTED H2 ANATOLIY THERAPY HYPERLIPIDEMIA - RESTARTED STATIN THERAPY CHRONIC SYSTOLIC CONGESTIVE HEART FAILURE WITH HX OF CORONARY ARTERY DISEASE WITH RCA OCCLUSION WITH COLLATERALIZED FROM LEFT CORONARY SYSTEM (CATH 01/2020) AND HX OF ISCHEMIC CARDIOMYOPATHY - SUPPORTIVE CARE AT THIS TIME, OPTIMIZATION OF MEDICATIONS AND GENTLY HYDRATE PATIENT. 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 - RENAL ADJUSTMENT OF MEDICATIONS - CAREFUL CONSIDERATION OF ANY DIURESIS SHOULD THAT APPEAR NECESSARY ANEMIA OF CHRONIC DISEASE - MULTIFACTORIAL - RENAL IMPAIRMENT FOREMOST ON LIST OF REASONS FOR HER ANEMIA - SUPPORTIVE CARE AT THIS TIME, CAN LOOK INTO IRON STORES SHOULD THAT APPEAR TO BE NECESSARY DURING THIS HOSPITALIZATION. CONFUSION - SUPPORTIVE CARE, MONITOR FOR DELIRIUM HYPERTENSION - RESTARTED A FEW ANTIHYPERTENSIVE AGENTS, WILL DEPEND ON HER RESPONSE TO IV MEDICATIONS AND FURTHER BP READINGS. 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 - RENAL ADJUSTMENT OF MEDICATIONS - CAREFUL CONSIDERATION OF ANY DIURESIS SHOULD THAT APPEAR NECESSARY ANEMIA OF CHRONIC DISEASE - MULTIFACTORIAL - RENAL IMPAIRMENT FOREMOST ON LIST OF REASONS FOR HER ANEMIA - SUPPORTIVE CARE AT THIS TIME, CAN LOOK INTO IRON STORES SHOULD THAT APPEAR TO BE NECESSARY DURING THIS HOSPITALIZATION. CONFUSION - SUPPORTIVE CARE, MONITOR FOR DELIRIUM HYPERTENSION - RESTARTED A FEW ANTIHYPERTENSIVE AGENTS, WILL DEPEND ON HER RESPONSE TO IV MEDICATIONS AND FURTHER BP READINGS. 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 DVT PROPHYLAXIS WITH TREATMENT OF AFIB (LOVENOX, LIKELY TRANSITION TO ORAL NOAC) GI PROPHYLAXIS WITH H2 ANATOLIY DVT/VTE Risk/Contraindication: Risk Factor Score Per Nursin RFS Level Per Nursing on Admit: 4+=Very High MIKAYLA PABLO MD Oct 05, 2020 19:56
[2020-10-05 20:00] VITALS: BP 115/75
[2020-10-05] MEDS: SIMvastatin 20 MG (ZOCOR) TAB PO SCH (21:27)
[2020-10-05] MEDS: MELATONIN 10 MG TABLET PO SCH (21:27)
[2020-10-06 00:22] VITALS: BP 115/67
[2020-10-06 03:50] VITALS: BP 122/69
[2020-10-06] MEDS: CATHETER FLUSH 10 ML SYR IV SCH ×2 (05:56→07:59)
[2020-10-06] MEDS: APIXABAN 5 MG (ELIQUIS) TABLET PO SCH (05:56)
[2020-10-06] MEDS: cefTRIAXone FOR IV USE 1,000 MG in WATER (STERILE) FOR INJECTION 10 ML IV SCH (07:57)
[2020-10-06] MEDS: SODIUM BICARBONATE 650 MG TABLET (NON-FORMULARY) PO SCH (07:58)
[2020-10-06] MEDS: FAMOTIDINE 20 MG (PEPCID) TABLET PO SCH (07:58)
[2020-10-06] MEDS: LORATADINE (CLARITIN) 10 MG TAB PO SCH (07:58)
[2020-10-06] MEDS: meTOprolol TARTRATE 50 MG (LOPRESSOR) TAB PO SCH (07:58)
[2020-10-06] MEDS: PANTOPRAZOLE 20 MG TABLET (PROTONIX) PO SCH (07:59)
[2020-10-06 08:00] VITALS: BP 130/60
--- NOTE | 2020-10-06 09:06 | Discharge Summary ---
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 SHE PRESENTED TO THE HOSPITAL FOR RAPID HEART RATE, FOUND TO BE IN AFIB IN THE EMERGENCY DEPARTMENT. SHE WAS TRANSFERRED UP TO THE ICU WHERE SHE CONVERTED ON HER OWN. Discharge Summary Consultations MANAGER INSPECTION Discharge Physical Examination Allergies: Coded Allergies: Penicillins (Verified Allergy, Unknown, Pt has rec Rocephin & Ancef in the past, 08/18/20) verapamil (Verified Allergy, Unknown, 12/31/18) Vitals & I&Os Vital Signs Date Time Temp Pulse Resp B/P (MAP) Pulse Ox O2 Delivery O2 Flow Rate FiO2 10/06/20 09:21 Nasal Cannula 10/06/20 08:00 36.4 80 17 130/60 (83) 98 1.00 General Appearance: Alert, Oriented X3, Cooperative, No Acute Distress HEENT: Atraumatic, PERRLA, EOMI, Mucous Memb Moist/[place] Respiratory: Clear to Auscultation, Normal Air Movement Cardiovascular: Regular Rate, Other (ii/iv JANNA) Abdominal: Normal Bowel Sounds, Soft, No Tenderness Extremities: No Clubbing, Other (EDEMA BILATERAL LOWER EXTREMITIES) Skin: No Rashes, No Breakdown Neuro: Strength at 5/5 X4 Ext, Cranial Nerves 3-12 NL Psych/Mental Status: Mental Status NL, Mood NL Hospital Course Was the Problem List Reviewed?: Yes ACUTE ONSET ATRIAL FIBRILLATION WITH RVR ACUTE ON CHRONIC STAGE 4 RENAL FAILURE ECOLI UTI ANEMIA OF CHRONIC DISEASE CONFUSION HYPERTENSION ESOPHAGEAL REFLUX HYPERLIPIDEMIA CHRONIC SYSTOLIC CONGESTIVE 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 - PT TO FOLLOW UP WITH CARDIOLOGY IN 2 WKS FROM [place]. ACUTE ON CHRONIC STAGE 4 RENAL FAILURE - PT INTOLERANT OF MARILIN/ARB DUE TO HYPERKALEMIA IN RESPONSE TO MARILIN CHALLENGE IN 2017 - DEFER TO PHYSICAL THERAPIST TECHNICIAN OUTPATIENT. - RENAL ADJUSTMENT OF MEDICATIONS - CAREFUL CONSIDERATION OF ANY DIURESIS SHOULD THAT APPEAR NECESSARY ECOLI URINARY TRACT INFECTION - PT ON ROCEPHIN - WILL CONTINUE WITH THESE INJECTIONS EVERY DAY X 5 MORE DAYS ON DISCHARGE. - LACTOBACILLUS 1 TAB TID X 10 DAYS FROM DISCHARGE. ANEMIA OF CHRONIC DISEASE - MULTIFACTORIAL - RENAL IMPAIRMENT FOREMOST ON LIST OF REASONS FOR HER ANEMIA - SUPPORTIVE CARE AT THIS TIME, CAN LOOK INTO IRON STORES SHOULD THAT APPEAR TO BE NECESSARY DURING THIS HOSPITALIZATION. CONFUSION - SUPPORTIVE CARE, MONITOR FOR DELIRIUM HYPERTENSION - RESTARTED A FEW ANTIHYPERTENSIVE AGENTS, WILL DEPEND ON HER RESPONSE TO IV MEDICATIONS AND FURTHER BP READINGS. ESOPHAGEAL REFLUX - RESTARTED H2 ANATOLIY THERAPY HYPERLIPIDEMIA - RESTARTED STATIN THERAPY CHRONIC SYSTOLIC CONGESTIVE HEART FAILURE WITH HX OF CORONARY ARTERY DISEASE WITH RCA OCCLUSION WITH COLLATERALIZED FROM LEFT CORONARY SYSTEM (CATH 01/2020) AND HX OF ISCHEMIC CARDIOMYOPATHY - SUPPORTIVE CARE AT THIS TIME, OPTIMIZATION OF MEDICATIONS AND GENTLY HYDRATE PATIENT. DVT PROPHYLAXIS WITH TREATMENT OF AFIB (LOVENOX, LIKELY TRANSITION TO ORAL NOAC) GI PROPHYLAXIS WITH H2 ANATOLIY Discharge Condition at discharge IMPROVED Instructions to patient/family Please see electronic discharge instructions given to patient. Discharge Medications Reviewed and agree with Discharge Medication list on patient's Discharge Instruction sheet Clinical Quality Measures DVT/VTE Risk/Contraindication: Risk Factor Score Per Nursin RFS Level Per Nursing on Admit: 4+=Very High MIKAYLA PABLO MD Oct 06, 2020 09:06
[2020-10-06] MEDS ORDERED: LACT1CAP79 PO (09:15)
[2020-10-06] MEDS ORDERED: CFTR1V IM (09:15)
[2020-10-06] MEDS ORDERED: METO50TA15 PO (09:20)
[2020-10-06] MEDS ORDERED: APIX5TAB PO (09:20)
--- NOTE | 2020-10-06 09:21 | Discharge Inst-Skilled Nursing ---
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 Residential Facility Order: Nursing Services, Information And Referral Director-Evaluate & Treat, Physical Therapy-Evaluate & Treat, Speech Language-Evaluate & Treat, Other Oxygen Delivery Method: Nasal Cannula Discharge Diet: Regular Diet Daily Activity as Tolerated: Yes Resuscitation Status: Do Not Resuscitate New & Resume Previous Orders New & Resume Previous Orders RESUME PREVIOUS ORDERS Mikayla Tay Oct 06, 2020 09:11 Medication List: Active Scripts Active Metoprolol Tartrate 50 Mg Tablet 50 Mg PO BID Eliquis (Apixaban) 5 Mg Tablet 5 Mg PO Q12H Up & Up Probiotic Supplement (Lactobac No.21/Bifidobact No.6) 1 Each Capsule 1 Each PO TID Ceftriaxone (Ceftriaxone Sodium) 1 Gm Vial 1 Gm IM DAILY inject daily x 5 days use lidocaine 1% to mix up the rocephin injection for administration Reported Nitroglycerin 0.4 Mg Tab.subl 0.4 Mg SL UD PRN Vitamin B-6 (Pyridoxine HCl) 100 Mg Tablet 100 Mg PO DAILY Vitamin B-12 (Cyanocobalamin (Vitamin B-12)) 1,000 Mcg Tablet 1,000 Mcg PO DAILY [place]-3 1,050 mg Softgel ([place]-3/Dha/Epa/Dpa/Fish Oil) 1 Each Capsule 1 Each PO DAILY Melatonin 10 Mg Tablet 10 Mg PO HS Claritin (Loratadine) 10 Mg Tablet 10 Mg PO DAILY Simvastatin 20 Mg Tablet 20 Mg PO EVENING Furosemide 40 Mg Tablet 40 Mg PO Q48H Amlodipine Besylate 5 Mg Tablet 5 Mg PO DAILY HOLD FOR SBP LESS THAN 120 Myrbetriq (Mirabegron) 50 Mg Tab.er.24h 50 Mg PO DAILY Omeprazole 40 Mg Capsule.dr 40 Mg PO DAILY Calcitriol 0.25 Mcg Capsule 0.25 Mg PO DAILY Sodium Bicarbonate 650 Mg Tablet 1,300 Mg PO BID TAKES 2 (650MG) TABS Acetaminophen 8 Hour (Acetaminophen) 650 Mg Tablet.er 1,300 Mg PO Q8H PRN TAKES 2 (650MG) TABLETS DISCONTINUE Bystolic (Nebivolol HCl) 10 Mg Tab 10 Mg PO DAILY My orders: Orders - MIKAYLA TAY MD Attending Discharge Inpt/Inobs (10/06/20 09:07) MIKAYLA TAY MD Oct 06, 2020 09:18
--- NOTE | 2020-10-06 10:53 | NUR ---
CM/SS: Visited with pt as per her plan for discharge Plan: Pt to return to [facility] on today Summary: Pt seems to be feeling better today and is informed that Dr Tay has indicated she can return to the [facility] today. Pt is ok with that. Pt reports that she lives at the [facility] all of the time now, and that she was unable to return home due to not being able to get around her home. She reports that is where she live. Pt reports still using her wheelchair and her walker at this time. Pt is reminded that the facility will plan to pick her up around 11:30am today. Pt is wished well. DARLINE Lin is notified of the time that the [facility] will be here to nut picker pt.
[2020-10-06 11:30] VITALS: BP 120/69
[2020-10-06 11:40] VITALS: BP 130/60
--- NOTE | 2020-10-06 11:40 | NUR ---
HOOD HEDNERSON demonstrates understanding of discharge instructions and accurately returns instructions upon questioning. Copy of Post-Discharge Instructions and Medication Discharge Instructions given to PT. HOOD HENDERSON is/is not able to manage continuing needs after discharge. Patients belongings returned to PT. Skin dry and intact; no breakdown noted. Patient discharged from [facility] 10/06/20 on at 1140. HOOD HENDERSON left floor via WC, accompanied by STAFF.
--- NOTE | 2020-10-06 18:53 | Cardiology Progress Note ---
Cardiology SOAP Progress Note Subjective: No significant cardiac complaints. Objective: I&O/Vital Signs Weight (Pounds): 147 Weight (Ounces): 0.0 Weight (Calculated Kilograms): 66.703923 Constitutional: appears stated age, AAO x 3; No apparent distress; well- developed, well-nourished Respiratory: chest is bilaterally symmetric, lungs clear to auscultation Cardiovascular: regular rate-rhythm, S1 and S2 Gastrointestional: soft, audible bowel sounds; No spleenomegaly Extremities: normal range of motion, non-tender, normal inspection; No clubbing, No cyanosis, No significant edema Neurologic/Psychiatric: no motor/sensory deficits, alert, normal mood/affect, oriented x 3, power is 5/5 both on sides Skin: No rash, No ulcerations Results/Procedures: Labs Microbiology 10/03/20 Urine Culture - Final, Complete Escherichia coli Escherichia coli#2 10/02/20 MRSA Screen - Final, Complete MRSA not isolated A/P: Assessment/Dx: Atrial fibrillation with rapid ventricular rate, currently sinus rhythm, PAPER BOX MAKER-D device, Severe cardiomyopathy, CKD, CAD, Hypertension Plan: Patient does not have any history of falls or active bleeding. I discussed at length with the patient and recommended oral anticoagulation. CHADVASC score is 4 for age over 75, hypertension, female gender. Started Cardizem and Eliquis. Hypertension, continue outpatient medical therapy. S/p PAPER BOX MAKER-D on 08/17/20 Chronic systolic CHF - clinically compensated CKD 4 - follows with nephrology services (Dr. Rick) Card cath of 01/18/20: HEALTH BENEFITS SPECIALIST of RCA with collateralization from the L coronary system that has diffuse, moderate disease, LVEDP 18 mmHg, LV angio not done (11 ml contrast used) Ischemic CM Echocardiogram of March 29, 2020 showed LVEF 25-30%. Global hypokinesis, more marked at the septum. Grade 1 diastolic dysfunction. Mod MR. Mod to severe AoR. RVSP 23 mmHg. Some pleural effusion seen. Most recent echo of August 02, 2020 showed LVEF 20-25%. Mod MR and AoR. PASP approx 40mmHg. Some pleural effusion present. MPI of April 2017: basal inferior infarction with minimal viji-infarct ischemia. Global hypokinesis of the LV, somewhat more prominent at basal inferior wall. LVEF 38%. MICHAELA of September 15, 2018 - no evidence of endocarditis, LVEF 45%, mild MR and AoR MRSA UTI in Jul 2018 (treated by Dr Rick) HTN HLP Carotid u/s of Sep 27, 2019 and March 2020 showed less than 40% LICA, 60-79% JESSE MARILIN and ARB contraindicated d/t associated acute on chronic renal failure with hyperkalemia in January 2017 S/p bladder sling removal at [facility] in Nov 2017 Thank you for your consultation. Please call me if you have any questions. Kathie Healy MD, FACP, FACC, FSCAI, FHRS, CCDS Interventional Cardiology Cardiac Electrophysiology Vascular Medicine and Endovascular Interventions Ky HEALY MD Oct 06, 2020 18:53
== END 2020-10-06 11:40 | DRG 309 ==
LOC: EDUNIT# 15:33 → ER 15:35 → ICU 17:00 → 4TH 10-03 10:45
PROVIDERS: ADMIT Family Medicine; ATTEND Family Medicine
DX: I48.91 Unspecified atrial fibrillation (principal); I13.0 Hypertensive heart and chronic kidney disease with heart failure and stage 1 through stage 4 chronic kidney disease, or unspecified chronic kidney disease; N17.9 Acute kidney failure, unspecified; N18.4 Chronic kidney disease, stage 4 (severe); I50.22 Chronic systolic (congestive) heart failure; N39.0 Urinary tract infection, site not specified; I08.0 Rheumatic disorders of both mitral and aortic valves; I25.2 Old myocardial infarction; Z66 Do not resuscitate; I25.5 Ischemic cardiomyopathy; I25.10 Atherosclerotic heart disease of native coronary artery without angina pectoris; I25.82 Chronic total occlusion of coronary artery; D63.8 Anemia in other chronic diseases classified elsewhere; R41.0 Disorientation, unspecified; K21.9 Gastro-esophageal reflux disease without esophagitis; E78.5 Hyperlipidemia, unspecified; M19.91 Primary osteoarthritis, unspecified site; J30.2 Other seasonal allergic rhinitis; B96.20 Unspecified Escherichia coli [E. coli] as the cause of diseases classified elsewhere; M54.9 Dorsalgia, unspecified; Z87.440 Personal history of urinary (tract) infections; Z86.010 Personal history of colon polyps; Z95.0 Presence of cardiac pacemaker; Z87.891 Personal history of nicotine dependence
CPT/HCPCS: 36415; 71045; 80053; 81000; 82962; 83735; 84100; 84484; 85025; 85027; 85610; 85730; 87077; 87081; 87088; 87186; 93005; 93041; 93306; 96365; 96372

== ENCOUNTER → 2020-10-11 | Outpatient (CLI) | payer MEDICARE, OTHER ==
[~2020-10-11] MED LIST changes: +APIX5TAB PO; +CFTR1V IM; +CYAN-41 PO; +LACT1CAP79 PO; +LORA10TA76 PO; +MELA10TA2 PO; +MELA1TAB20 PO; +METO50TA15 PO; +NITR0.4T39 SL; +OMEG-91 PO
[2020-10-11 16:39] LABS: HEMOGLOBIN 9.9 g/dL (11.5-16.0); MEAN PLATELET VOLUME 10.7 fL (9.0-12.2)
[2020-10-11 17:00] LABS: ALBUMIN 3.1 GM/DL (3.2-4.5); POTASSIUM 3.5 MMOL/L (3.6-5.0)
[2020-10-11 17:01] LABS: CALCIUM 8.3 MG/DL (8.5-10.1)
[2020-10-11 17:02] LABS: TOTAL PROTEIN 5.9 GM/DL (6.4-8.2)
[2020-10-11 17:04] LABS: BILIRUBIN,TOTAL 0.2 MG/DL (0.1-1.0)
[2020-10-11 17:06] LABS: CREATININE SERUM 2.04 MG/DL (0.60-1.30)
== END ==
LOC: CVS 16:35
PROVIDERS: ATTEND Family Medicine
DX: I13.0 Hypertensive heart and chronic kidney disease with heart failure and stage 1 through stage 4 chronic kidney disease, or unspecified chronic kidney disease (principal); I50.9 Heart failure, unspecified; N18.9 Chronic kidney disease, unspecified
CPT/HCPCS: 80053; 83880; 85027